=== PATIENT | female | born 1940 | race Caucasian/White ===

== ENCOUNTER → 2019-09-08 08:19 | Outpatient (CLI) | payer MEDICARE, SELFPAY ==
[2019-09-08 13:46] LABS: Basophils % 0.4 % (0.1-2.0); Eosinophils # 1.1 K/mm3 (0.0-0.4); Eosinophils % 12.6 % (0.1-12.0); Hematocrit 40.2 % (37.0-47.0); Hemoglobin 12.8 g/dL (12.2-16.2); Lymphocytes # 2.5 K/mm3 (0.7-4.5); Lymphocytes % 29.9 % (10-50); Mean Corpuscular HGB Conc 31.9 g/dL (31.8-35.4); Mean Corpuscular Volume 93.9 fl (81-99); Mean Platelet Volume 8.8 fl (7.4-10.4); Monocytes # 0.3 K/mm3 (0.1-1.0); Monocytes % 3.3 % (1.7-9.3); Neutrophils # 4.5 K/mm3 (1.8-7.8); Neutrophils % 53.8 % (37.0-80.0); Platelet Count 267 K/mm3 (142-424); Red Blood Count 4.28 M/mm3 (4.20-5.40); Red Cell Distribution Width 12.8 % (11.5-17.5); White Blood Count 8.3 K/mm3 (4.8-10.8)
[2019-09-08 13:49] LABS: Alanine Aminotransferase 33 U/L (12-78); Albumin Level 3.5 gm/dL (3.4-5.0); Albumin/Globulin Ratio 0.9 (1.1-1.8); Alkaline Phosphatase 98 U/L (46-116); Anion Gap 14.3 mEq/L (5-15); Aspartate Amino Transferase 32 U/L (15-37); Bilirubin,Total 0.4 mg/dL (0.2-1.0); Blood Urea Nitrogen 12 mg/dL (7-18); Calcium 8.8 mg/dL (8.5-10.1); Carbon Dioxide 25 mmol/L (21.0-32.0); Chloride 103 mmol/L (98-107); Chol/HDL Ratio 3.3 (1-3.5); Cholesterol 137 mg/dL (140-200); Creatinine,Serum 0.73 mg/dL (0.55-1.02); Estimated Glomerular Filt Rate 77 ml/min (>60); GFR (African American) 94 ML/MIN (>60); HDL Cholesterol 42 mg/dL (29-89); LDL Cholesterol 76 mg/dL (0-130); Potassium 4.3 mmoL/L (3.5-5.1); Sodium 138 mmol/L (136-145); Total Protein,Serum 7.5 gm/dL (6.4-8.2); Triglycerides 97 mg/dL (30-200); VLDL Cholesterol 19 mg/dL (0-40)
[2019-09-08 14:11] LABS: Glucose 90 mg/dL (74-106)
[2019-09-09 12:35] LABS: Vitamin B12 1000 pg/mL (232-1245)
== END ==
PROVIDERS: Visit Provider Nurse Practitioner Family
DX: Z00.00 Encounter for general adult medical examination without abnormal findings (principal); E53.8 Deficiency of other specified B group vitamins; I10 Essential (primary) hypertension
CPT/HCPCS: 36415; 80053; 80061; 82607; 85025

== ENCOUNTER → 2019-09-23 08:48 | Outpatient (CLI) | payer MEDICARE, SELFPAY ==
--- NOTE | 2019-09-23 09:30 | MM_ITS ---
PROCEDURE: MM DIG SCREENING MAMM BI W/CAD CLINICAL INDICATION: SCREENING There is no personal or family history of breast cancer. COMPARISON: No exams were available for comparison TECHNIQUE: Standard CC and MLO images and 3D Tomosynthesis was obtained. R2 CAD reviewed. FINDINGS: Moderate fibroglandular densities are seen in the subareolar regions of both breasts. There are few scattered benign-appearing microcalcifications in each breast. Juancarlos images were reviewed. There is no suspicious lesion and no suspicious microcalcifications. IMPRESSION: Fibrofatty parenchyma with no suspicious lesions seen BI-RAD Category: 2 Benign Finding(s) FOLLOW-UP: 1YR 1 Year Follow-up (A letter has been sent to the patient regarding results of the study.) Dictated by: Dr. Keshawn Perez MD 09/26/2019 17:[address] Keshawn Perez MD in [place] 09/26/2019 17:45
== END ==
PROVIDERS: PCP Internal Medicine Adolescent Medicine; Visit Provider Nurse Practitioner Family
DX: Z12.31 Encounter for screening mammogram for malignant neoplasm of breast (principal)
CPT/HCPCS: 77063; 77067

== ENCOUNTER → 2020-05-19 10:10 | Outpatient (CLI) | payer MEDICARE, SELFPAY ==
[2020-05-19 13:59] LABS: Chloride 93 mmol/L (98-107)
[2020-05-19 14:00] LABS: Potassium 4.4 mmoL/L (3.5-5.1); Sodium 129 mmol/L (136-145)
[2020-05-19 14:03] LABS: Anion Gap 12.4 mEq/L (5-15); Blood Urea Nitrogen 12 mg/dl (7-17); Calcium 9.3 mg/dl (8.4-10.2); Carbon Dioxide 28 mmol/L (22.0-30.0); Estimated Glomerular Filt Rate 97 ml/min (>60); GFR (African American) 117 ML/MIN (>60); Glucose 94 mg/dl (74-100)
== END ==
PROVIDERS: Visit Provider Nurse Practitioner Family
DX: E87.1 Hypo-osmolality and hyponatremia (principal)
CPT/HCPCS: 36415; 80048

== ENCOUNTER → 2020-06-26 14:38 | Outpatient (CLI) | payer MEDICARE, SELFPAY ==
[2020-06-26 17:07] LABS: Anion Gap 13.4 mEq/L (5-15); Blood Urea Nitrogen 14 mg/dl (7-17); Calcium 9.3 mg/dl (8.4-10.2); Carbon Dioxide 27 mmol/L (22.0-30.0); Chloride 96 mmol/L (98-107); Estimated Glomerular Filt Rate 81 ml/min (>60); GFR (African American) 98 ML/MIN (>60); Glucose 91 mg/dl (74-100); Potassium 4.4 mmoL/L (3.5-5.1); Sodium 132 mmol/L (136-145)
== END ==
PROVIDERS: Visit Provider Nurse Practitioner Family
DX: I10 Essential (primary) hypertension (principal); E87.1 Hypo-osmolality and hyponatremia
CPT/HCPCS: 36415; 80048

== ENCOUNTER → 2021-01-05 13:35 | Outpatient (CLI) | payer MEDICARE, SELFPAY | PROVIDERS: Visit Provider Nurse Practitioner Family | DX: R30.0 Dysuria (principal) | CPT/HCPCS: 87086; 87088; 87186 ==

== ENCOUNTER → 2021-01-29 10:30 | Outpatient (CLI) | payer MEDICARE, SELFPAY ==
--- NOTE | 2021-01-29 10:32 | MM_ITS ---
PROCEDURE: MM DIG SCREENING MAMM BI W/CAD Digital Breast Tomosynthesis Included CLINICAL INDICATION: SCREENING COMPARISON: MG MAMMO BI LAT SCREENING from 08/01/2014 MG MAMMO BI LAT SCREENING from 08/15/2015 MG GRACIE BILAT SCREENING from 08/16/2016 MG GRACIE BILAT SCREENING from 08/16/2016 MG GRACIE BILAT SCREENING from 08/21/2017 MG GRACIE BILAT SCREENING from 08/21/2017 MG MM DIG SCREENING MAMM BI W/CAD from 09/23/2019 TECHNIQUE: Standard CC and MLO images and 3D Tomosynthesis was obtained. R2 CAD reviewed. FINDINGS: Breast parenchyma is heterogeneously dense which may lower the sensitivity of mammography. No new dominant mass or indirect evidence of malignancy. No suspicious type microcalcifications. IMPRESSION: Normal bilateral digital screening mammograms. BI-RAD Category: 1 Negative FOLLOW-UP: 1 YR 1 Year Follow-up (A letter has been sent to the patient regarding results of the study.) Dictated by: Robinson Rangel MD 01/31/2021 07:53 Robinson Rangel MD in [place] 01/31/2021 07:53
== END ==
PROVIDERS: PCP Internal Medicine Adolescent Medicine; Visit Provider Nurse Practitioner Family
DX: Z12.31 Encounter for screening mammogram for malignant neoplasm of breast (principal)
CPT/HCPCS: 77063; 77067

== ENCOUNTER → 2021-03-26 12:27 | Outpatient (CLI) | payer MEDICARE, SELFPAY ==
--- NOTE | 2021-03-26 12:31 | FL_ITS ---
PROCEDURE: FL BARIUM SWALLOW MODIFIED CLINICAL INDICATION: PHARYNGEAL DYSPHAGIA COMPARISON: No exams were available for comparison TECHNIQUE: Patient administered varying consistencies of barium contrast, while viewed in lateral position under real-time fluoroscopy with cine recording. FLUOROSCOPY TIME: The study was performed in conjunction with speech pathologist. Please see that report & recommendations. FINDINGS: Patient was given varying consistencies of barium. Normal oral phase. There was a mild amount residual within the vallecula and piriform sinus but no evidence of aspiration or penetration. There was some difficulty with bolus formation with mechanical soft.. IMPRESSION: No aspiration or penetration. Mild amount of residual within the vallecula and poor from sinuses with all consistencies Please see speech pathologist report and recommendations. Dictated by: Jian Edwards MD 03/29/2021 12:22 Jian Edwards MD in [place] 03/29/2021 12:22
--- NOTE | 2021-03-26 14:13 | HMH.SLMBS2 ---
Speech & Language Evaluation Speech/Language Mod Barium Swallow Start: 03/26/21 13:34 Freq: once Status: Complete Protocol: Document 03/26/21 13:34 BALDEV (Rec: 03/26/21 14:12 BALDEV [id number]) General Information General Current Food Consistancy Regular,Thin Liquids Dentition Upper Only Comment: Edentulous on lower Oxygen Status Room Air Facial Symmetry Symmetrical Patient Orientation Person,Place,Time,Situation Ability to Follow Directions Excellent Communication Ability No Impairment MBS Recommendations Diet Dietary Recommendations Mechanical Soft,Chopped Meats, Thin Liquids Treatment/Strategies Treatment Recommendation Base of Tongue Exercises Strategy/Precaution Recommend Sitting Upright (90 deg),Chin Tuck,Double Swallow, Supersupraglottic Swallow, Small Bites and Sips,Alternate Liquids/Solids Mod Barium Swallow Impressions Summary and Impressions Oral Phase Impression No Impairment (WFL) Oral Phase Summary Ms. Ross was given the following consistencies: thins via straw and open cup, puddingg, pureed, and mechanical soft. Regular consistency was not attempted due to lack of bottom teeth. No oral phase impairments were noted during the evaluation. Pharyngeal Phase Impression Moderate Impairment Pharyngeal Phase Summary Ms. Ross exhibited residue on base of tongue and pharyngeal wall. She also exhibited penetration into laryngeal vestibule with thin liquids via straw and open cup . Chin tuck improved swallow. Speech/Language MBS Assessment/Goals/Plan Assessment Date of Evaluation: 03/26/21 Evaluation Type Initial Certification Assessment/Problems Dysphagia Does Patient Qualify for Service Yes Qualify/Failure Comment Patient would benefit from speech therapy via home health or outpatient services. Patient requested home health but would agree to outpatient therapy. Plan Pt/Guardian verbally ack understanding Yes of dx/prognosis/goals G -code Required No Mod Barium Swallow Setup Exam Setup
== END ==
PROVIDERS: PCP Internal Medicine Adolescent Medicine; Visit Provider Internal Medicine Adolescent Medicine
DX: R13.13 Dysphagia, pharyngeal phase (principal)
CPT/HCPCS: 70371; 92611

== ENCOUNTER 2021-05-01 11:00 | Outpatient (RCR) | payer MEDICARE, SELFPAY ==
--- NOTE | 2021-04-24 11:56 | HMH.SLDYSPHA ---
Speech & Language Evaluation Speech/Language Dysphagia Evaluation Start: 04/24/21 11:48 Freq: ONCE Status: Active Protocol: Document 04/24/21 11:48 BALDEV (Rec: 04/24/21 11:56 BALDEV [id number]) Dysphagia Assess/Goals/Plan Assessment Date of Evaluation: 04/24/21 Evaluation Type Initial Certification Assessment/Problems Dysphagia Does Patient Qualify for Service Yes Qualify/Failure Comment Ms. Ross did exhibit signs and symptoms of dysphagia during a Modified Barium Swallow Study conducted on 03/26. Recommendations PHYSICIAN CERTIFICATION: The specified therapy services are required, authorized, and reviewed every 30 days. Pt will be seen # times/week 1 for # weeks 4 Diet Recommendations Mechanical Soft Liquid Type Recommendations Normal/Thin SL Swallow Guidelines Alt bite w/sip thru meal, Standard Aspiration Prec. Crush Meds Small pills w/applesauce,Small OK/Crush large pill,Crush lge pills w/applesa Dysphagia Swallow Precautions/Strategies Sitting Upright (90 deg),Chin Tuck,Double Swallow,Small Bites and Sips,Alternate Liquids/Solids Plan Anticipate reaching STG in # weeks 2 Anticipate reaching LTG in # weeks 4 Pt/Guardian verbally ack understanding Yes of dx/prognosis/goals G -code Required No STG-Asp Before/Delayed Resp Use chin-down position w/wo cues #trials 10 STG-Asp During/Laryngeal Closure Use chin-down position w/wo cues #trials 10 Use Valsalva maneuver w/wo cues in # 10 trials STG-Asp Aft/Laryn.Vest.-Elevation Produce i/in continuous fashion, incl. 30 fasetto in # trials Case Operator Goals Diet Mechanical soft with Liquids Thin Liquids General Information General Current Food Consistancy Mechanical Soft,Thin Liquids Dentition Upper Only Oxygen Status Room Air Facial Symmetry Symmetrical Patient Orientation Person,Place,Time,Situation Ability to Follow Directions Excellent Communication Ability No Impairment Dysphagia:Food Presentation Evaluation Food Type Pureed,Mechanical Soft,Liquid, Pudding Dysphagia Evaluation Summary Ms. Ross received a MBSS on 03/26/2021 and results are as follows: Oral Phase of swallowing: Within Functional Limits
== END 2021-05-01 11:05 | disposition home or self-care (01) ==
LOC: ST 11:00
PROVIDERS: PCP Internal Medicine Adolescent Medicine; Visit Provider Nurse Practitioner Family
DX: R13.19 Other dysphagia (principal)
CPT/HCPCS: 92526; 92610

== ENCOUNTER 2021-05-04 17:09 | Emergency (ER) | payer MEDICARE, SELFPAY ==
[2021-05-04 17:41] VITALS: BP 152/72; PULSE 68; RESP 16; TEMP 36.7; O2SAT 98; BMI 23.1
--- NOTE | 2021-05-04 18:06 | XR_ITS ---
PROCEDURE INFORMATION: Exam: XR Right Elbow Exam date and time: 05/04/21 06:06 PM Age: 80 years old Clinical indication: Injury or trauma; Fall; Blunt trauma (contusions or hematomas); Elbow; Right; Injury date: 05/04/2021; Injury details: Fell; Additional info: Fall abrasion RT elbow TECHNIQUE: Imaging protocol: XR Right elbow. Views: 3 or more views. COMPARISON: No relevant prior studies available. FINDINGS: Bones/joints: Normal. Soft tissues: Normal. IMPRESSION: No acute findings.
--- NOTE | 2021-05-04 18:06 | XR_ITS ---
PROCEDURE INFORMATION: Exam: XR Right Forearm Exam date and time: 05/04/21 06:06 PM Age: 80 years old Clinical indication: Injury or trauma; Fall; Blunt trauma (contusions or hematomas); Arm, lower; Right; Injury date: 05/04/2021; Patient HX: Fell abrasion RT elbow pain in RT wrist TECHNIQUE: Imaging protocol: XR Right forearm. Views: 2 views. COMPARISON: CR XR ELBOW RT MIN 3V 05/04/21 06:12 PM FINDINGS: Bones/joints: Normal. Soft tissues: Normal. IMPRESSION: No acute findings.
--- NOTE | 2021-05-04 18:06 | XR_ITS ---
PROCEDURE INFORMATION: Exam: XR Facial Bones, Minimum of 3 Views, Complete Exam date and time: 05/04/21 06:06 PM Age: 80 years old Clinical indication: Injury or trauma; Fall; Blunt trauma (contusions or hematomas); Nose and lip/oral cavity; Injury date: 05/04/2021; Patient HX: Fell landed on carpet floor cut upper inside of lip, abrasion on bridge of nose and under RT eye TECHNIQUE: Imaging protocol: XR of the facial bones, minimum of 3 views. Complete exam. COMPARISON: NECKW CT SOFT TISSUE NECK W/CONTRAST 04/04/17 08:06 AM FINDINGS: Sinuses: Well aerated. No opacification. Bones/joints: No fracture. Soft tissues: Unremarkable. IMPRESSION: Unremarkable.
--- NOTE | 2021-05-04 18:06 | XR_ITS ---
PROCEDURE INFORMATION: Exam: XR Right Knee Exam date and time: 05/04/21 06:06 PM Age: 80 years old Clinical indication: Injury or trauma; Fall; Blunt trauma; Knee; Right; Injury date: 05/04/2021; Injury details: Fell; Additional info: Fall pain RT knee TECHNIQUE: Imaging protocol: XR Right knee. Views: 3 views. COMPARISON: No relevant prior studies available. FINDINGS: Bones/joints: Mild degenerative changes. Soft tissues: Small suprapatellar effusion. IMPRESSION: Small suprapatellar effusion.
--- NOTE | 2021-05-04 18:08 | PC.NURSE ---
Notified RAD of xrays
--- NOTE | 2021-05-04 18:20 | HMH.EDUTC ---
[facility] [place] Disposition Clinical Impression: Right forearm pain, Right elbow pain, Need for Tdap vaccination Fall Qualifiers: Encounter type: initial encounter Qualified Code(s): W19.XXXA - Unspecified fall, initial encounter Lip laceration Qualifiers: Encounter type: initial encounter Qualified Code(s): S01.511A - Laceration without foreign body of lip, initial encounter Contusion of right knee Qualifiers: Encounter type: initial encounter Qualified Code(s): S80.01XA - Contusion of right knee, initial encounter Avulsion of skin of right forearm Qualifiers: Encounter type: initial encounter Qualified Code(s): S51.801A - Unspecified open wound of right forearm, initial encounter Disposition: Home, Self-Care Condition on Discharge: Good Instructions: DI for Knee Pain, DI for Avulsion Laceration (Not Requiring Sutures), How to Care for Absorbable Sutures Additional Instructions: Follow up with your primary care physician. The sutures in the inside of your upper lip are absorbable. They will absorb and do not need removed. Take the antibiotics (keflex-cephalexin) as directed. Apply the topical antibiotic ointment to your abrasions and skin tear as directed. I put in a referral to the orthopedic doctor for your multiple orthopedic injuries. You should call his office on Friday morning to get an appointment with him to let him reevaluate your injuries. You definitely need to follow up if you knee,forearm, wrist, elbow are not starting to feel better within 48 to 72 hours. HIs office number will be on this chart. If you have a different orthopedic doctor that you see then you could follow up with that person just as well, but make sure they will be able to review your x-rays. You would usually need to get copies of them from medical records and take them with you. Dr. Sunshine will be able to look in the computer here and see them without needing a disk. GO TO THE ER FOR ANY WORSENING SYMPTOMS OR CONCERNS EAT A SOFT DIET FOR THE NEXT FEW DAYS TO ALLOW YOU LIP TO HEAL WITHOUT CAUSING IT TO HURT MORE THAN IT HAS TO. Prescriptions: Mupirocin [Bactroban 2% Ointment 22gm tube] 1 applicatio TP TID 7 Days #1 gm Transmission Status: Received by [facility] cephALEXin [cephALEXin 500mg capsule] 500 mg PO Q6H 10 Days #40 cap Transmission Status: Received by [facility] Referrals: Ziggy Cunha MD [Primary Care Provider] - Yg Sunshine MD [Staff Physician] - Time of Disposition: 20:09 Medical Decision Making - Medical Records Medical records reviewed: No: I reviewed the patient's medical records. - Pradip Inquiry Pt receiving controlled substance: No Vital Signs: 05/04/21 17:41 05/04/21 20:29 Temperature 98.0 F 98.0 F Temperature Source Oral Pulse Rate 68 Pulse Rate [Left Radial] 68 Respiratory Rate 16 16 Blood Pressure 152/72 H Blood Pressure [Left Arm] 152/72 H Blood Pressure Mean [Left Arm] 98 Blood Pressure Source [Left Arm] Automatic Cuff Blood Pressure Position [Left Arm] Sitting 02 Sat by Pulse Oximetry 98 Oxygen Delivery Method Room Air Orders (Tests/Meds): ED MEDICATIONS Discontinued Medications Generic Name Dose Route Start Last Admin Trade Name Freq PRN Reason Stop Dose Admin Tetanus/Reduced Diphtheria/Acell Pertussis 0.5 ml 05/04/21 18:37 05/04/21 20:28 Tet/Diphth/Pert-Adult 0.5ml Syringe IM 05/04/21 18:38 0.5 ml .ONCE ONE Administration [facility] [place] HPI - General Stated complaint: AO09/17@1700 Fall inj R wrist,r knee lac on lip Time Seen by Provider: 05/04/21 18:20 Mode of Arrival: Wheelchair Source of Information: Patient Limitations: No Limitations Description of Symptoms (Recalled from Triage Doc. by RN): Tripped at home, fell on kitchen floor, resulting in a lac to her upper lip, skin tear to rt forearm by the elbow, abrasion below rt eye, and swelling to rt knee HEENT Symptoms (Recalled from RN notes): No Resp Symptoms (Rec
--- NOTE | 2021-05-04 18:41 | PC.NURSE ---
Pt returned from RAD
[2021-05-04 20:29] VITALS: BP 152/72; PULSE 68; RESP 16; TEMP 36.7; O2SAT 98
== END 2021-05-04 20:30 | disposition home or self-care (01) ==
PROVIDERS: Emergency Provider Nurse Practitioner Family; PCP Internal Medicine Adolescent Medicine
DX: S01.511A Laceration without foreign body of lip, initial encounter (principal); S80.01XA Contusion of right knee, initial encounter; S51.801A Unspecified open wound of right forearm, initial encounter; Z23 Encounter for immunization; W18.00XA Striking against unspecified object with subsequent fall, initial encounter; Y92.010 Kitchen of single-family (private) house as the place of occurrence of the external cause; Z88.0 Allergy status to penicillin; Z88.8 Allergy status to other drugs, medicaments and biological substances
CPT/HCPCS: 12011; G0463; 70150; 73080; 73090; 73562; 90471; 90715; 99202

== ENCOUNTER → 2021-05-09 11:16 | Outpatient (CLI) | payer MEDICARE, SELFPAY | PROVIDERS: Visit Provider Internal Medicine Gastroenterology | DX: Z20.822 Contact with and (suspected) exposure to COVID-19 (principal); Z13.810 Encounter for screening for upper gastrointestinal disorder | CPT/HCPCS: C9803; U0003; U0005 ==

== ENCOUNTER 2021-05-11 09:09 | Day surgery (SDC) | payer MEDICARE, SELFPAY ==
[2021-05-08 14:00] VITALS: BMI 23.1
[2021-05-11] VITALS (7 sets, daily range): BP systolic 120–148; BP diastolic 60–98; PULSE 59–72; RESP 18; TEMP 36.1–36.7; O2SAT 97–100
--- NOTE | 2021-05-11 11:18 | HMH.ANESCL ---
[facility] Anesthesia Checklist - Patient Identification Patient Identification: Arm Band - Structural Data Admitted From: Home Planned Operative Procedure/s: EGD Consent for Planned Operative Procedure(s) Verified: Yes - NPO Status Verified Time NPO: 00:00 - Airway Assessment C-Spine Mobility Assessed: Yes TMJ Mobility Assessed: Yes Dentition: Good Dentition - Neurological Assessment Level of Consciousness: Awake Hx Seizures: No Numbness or tingling in extremities: No - Anesthesia Plan Anesthesia Risk discussed: Yes Anesthesia Plan: Verified Anesthesia Type: MAC [facility] History I have reviewed the patient's past medical history: Yes Medical History: Denies:: Cancer, Diabetes Mellitus Type 1, Diabetes Mellitus Type 2, Internal Pacemaker, MRSA, Seizures *Have you ever received a pneumonia vaccine?: Yes *Have you received a flu vaccine this season?: Yes Anesthesia experience/problems:: None Laterality Cases: Bilateral: Tonsillectomy Other Surgeries: No: Pacemaker Amputation: No Fractures: No - *Social History Last grade of school completed: 11th or 12th Smoking Status: Never smoker Alcohol Intake: never Substance Use Type: denies use *Occupational Status:: retired Housing: house *Travel in the last 8 weeks: None Family Hx:: Cancer, Diabetes
--- NOTE | 2021-05-11 11:43 | P.PCN_ITS ---
[facility] Procedure Note Procedure Note:: Upper Endoscopy Procedure Report: Esophagogastroduodenoscopy with cold biopsies and TTS balloon dilation Endoscopost: Theo Orr II, MD Referring Physician: Claudia ANSARI Date of Procedure: May 11, 2021 Equipment: Olympus GIF 190 standard upper endoscope Sedation: MAC sedation Indications: Mrs. Ross is a 80-year-old female with dysphagia for years. This has worsened. She reports globus sensation with some mucus accumulation in the throat and thickness feeling. She reports no hoarseness. She has undergone speech therapy with swallowing exercises. The patient reports no heartburn or reflux. She reports no belching. She does have occasional hiccups. She reports of dysphagia at the retrohyoid region in her throat. She did have an upper endoscopy in [place] in 2009 after a colon resection. She does have chronic constipation for which she takes Metamucil. She reports no epigastric discomfort but does have some bloating. Procedure: Prior to the procedure, a history and physical exam was performed, and patient's medications and allergies were reviewed. The risks, benefits and alternatives of the sedation and procedure were discussed with the patient. All questions were answered and informed consent was obtained. The patient was brought to the procedure room. Patient identification and proposed procedure were verified by the physician and the nurse. The patient was placed in a left lateral decubitus position and the scope was passed under direct vision. Throughout the procedure, the patient's blood pressure, pulse, and oxygen saturations were monitored continuously. The upper GI endoscopy was accomplished without difficulty. The patient tolerated the procedure well. Findings: The scope was passed directly into the upper esophagus and advanced to the third portion of the duodenum. The post bulbar duodenum and duodenal bulb were normal with normal mucosa and conniventes. The scope was withdrawn through a normal duodenal bulb and pylorus into the stomach. There was some linear reactive gastropathy of the antrum. Biopsies were obtained. There was moderate chronic atrophic gastritis of the body and fundus of the stomach with thinning of the mucosal lining and very visible vascular pattern. NBI did show evidence of gastric intestinal metaplasia associated with a chronic atrophic gastritis. Cold biopsies were taken separately from the fundus of the stomach. Upon retroflexion there was no hiatal hernia. The scope was then withdrawn into the esophagus. There was no evidence of reflux esophagitis or Suarez's. There was no Schatzki's ring. There were strong tertiary contractions and evidence of moderate esophageal dysmotility. The entire esophagus was dilated to 60 Slovenian/20 mm with a TTS hydrostatic balloon. There was some resistance at the cricopharyngeus. The remainder of the esophageal mucosa was normal. 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 Nonerosive GERD with moderate esophageal dysmotility 3. Chronic atrophic gastritis Plan: The patient's swallowing difficulty/globus sensation is related to cricopharyngeal spasm and esophageal dysmotility/esophageal motility disorder. I do feel that this may be caused by gas pressure gradients. We will discuss treatment options. I do feel certain the patient has chronic atrophic gastritis and probable associated B12 deficiency and possible iron deficiency. This can be secondary to H. pylori but many times it is autoimmune in origin. I will obtain B12, iron studies and antiparietal cell antibody (to rule out autoimmune atrophic gastritis). I will also check routine CBC.
[2021-05-11 12:57] LABS: Basophils % 0.3 % (0.1-2.0); Eosinophils # 0.6 K/mm3 (0.0-0.4); Eosinophils % 6.3 % (0.1-12.0); Hematocrit 39.9 % (37.0-47.0); Hemoglobin 12.7 g/dL (12.2-16.2); Lymphocytes % 20.7 % (10-50); Mean Corpuscular HGB Conc 31.8 g/dL (31.8-35.4); Mean Corpuscular Hemoglobin 30.3 pg (27.0-31.2); Mean Corpuscular Volume 95.3 fl (81-99); Mean Platelet Volume 7.2 fl (7.4-10.4); Monocytes # 0.4 K/mm3 (0.1-1.0); Monocytes % 4.6 % (1.7-9.3); Neutrophils # 6.6 K/mm3 (1.8-7.8); Platelet Count 321 K/mm3 (142-424); Red Blood Count 4.19 M/mm3 (4.20-5.40); White Blood Count 9.7 K/mm3 (4.8-10.8)
[2021-05-11 13:03] LABS: Chloride 99 mmol/L (98-107); Potassium 4.5 mmoL/L (3.5-5.1); Sodium 134 mmol/L (136-145)
[2021-05-11 13:06] LABS: Alanine Aminotransferase 24 U/L (12-78); Albumin Level 3.9 g/dl (3.5-5.0); Albumin/Globulin Ratio 1.1 (1.1-1.8); Alkaline Phosphatase 92 U/L (38-126); Anion Gap 10.5 mEq/L (5-15); Aspartate Amino Transferase 41 U/L (14-36); Bilirubin,Total 0.2 mg/dl (0.2-1.3); Blood Urea Nitrogen 13 mg/dl (7-17); Carbon Dioxide 29 mmol/L (22.0-30.0); Creatinine Clearance Estimated 50 mL/min (50-200); Estimated Glomerular Filt Rate 97 ml/min (>60); GFR (African American) 117 ML/MIN (>60); Globulin 3.7 g/dL (1.3-3.2); Glucose 92 mg/dl (74-100); Iron 48 ug/dL (37-170); Total Protein,Serum 7.6 g/dl (6.3-8.2)
[2021-05-11 13:16] LABS: Total Iron Binding Capacity 311 ug/dL (265-497)
[2021-05-11 13:44] LABS: Ferritin 49.6 ng/ml (11.1-264)
[2021-05-11 14:27] LABS: Vitamin B12 772 pg/mL (239-931)
[2021-05-12 16:27] LABS: Antiparietal Cell Antibody 11.8 Units (0.0-20.0)
== END 2021-05-11 12:48 | disposition home or self-care (01) ==
LOC: OUTP 09:11
PROVIDERS: PCP Internal Medicine Adolescent Medicine; Visit Provider Internal Medicine Gastroenterology
PROC: 0DJ08ZZ Inspection of Upper Intestinal Tract, Via Natural or Artificial Opening Endoscopic (ICD-10-PCS; CPT 43235; principal; 2021-05-11 10:30)
DX: J39.2 Other diseases of pharynx (principal); K21.9 Gastro-esophageal reflux disease without esophagitis; K22.4 Dyskinesia of esophagus; K29.40 Chronic atrophic gastritis without bleeding; Z80.9 Family history of malignant neoplasm, unspecified; Z83.3 Family history of diabetes mellitus; Z88.6 Allergy status to analgesic agent; Z88.1 Allergy status to other antibiotic agents; Z88.2 Allergy status to sulfonamides; Z88.8 Allergy status to other drugs, medicaments and biological substances; Z79.899 Other long term (current) drug therapy
CPT/HCPCS: 43239; 43249; 36415; 80053; 82607; 82728; 83516; 83540; 83550; 85025; 88305; 88342; C1726

== ENCOUNTER → 2021-05-22 08:00 | Outpatient (CLI) | payer MEDICARE, SELFPAY | PROVIDERS: Visit Provider Internal Medicine Adolescent Medicine | DX: R30.0 Dysuria (principal); B96.5 Pseudomonas (aeruginosa) (mallei) (pseudomallei) as the cause of diseases classified elsewhere | CPT/HCPCS: 87086; 87088; 87186 ==

== ENCOUNTER → 2021-06-04 17:48 | Outpatient (CLI) | payer MEDICARE, SELFPAY | PROVIDERS: Visit Provider Internal Medicine Adolescent Medicine | DX: N30.00 Acute cystitis without hematuria (principal); B96.5 Pseudomonas (aeruginosa) (mallei) (pseudomallei) as the cause of diseases classified elsewhere | CPT/HCPCS: 87086; 87088; 87186 ==

== ENCOUNTER 2021-06-28 10:00 | Outpatient (RCR) | payer MEDICARE, SELFPAY ==
--- NOTE | 2021-05-15 12:15 | HMH.PTOPEV ---
PT Outpatient Evaluation Rehab PT Outpatient Evaluation Start: 05/15/21 09:43 Freq: Status: Active Protocol: Document 05/15/21 09:43 IVONE (Rec: 05/15/21 11:21 [email or web address] [id number]) Electronically Signed By Zhen Saeed, PT 05/15/21 09:43 Outpatient Therapy Subjective History Subjective History Pt. is a 80 year old female who presents to [facility] w/ c/o acute and constant RLE knee/ RUE wrist P!, muscle weakness, and imbalance w/ gait of traumatic onset since 05/04/21 . Pt. reports having a fall on 05/04/21 secondary to my left foot dragging the ground. Pt. denies having dizziness, vertigo, drop attack, nor syncope related to recent fall . Recent diagnostic imaging( radiographs of RUE wrist/ forearm/elbow/face and RLE knee) were negative for a fx. per pt. report. Pt. reports decreased muscle strength over the past 2 years secondary to staying home and providing care to her dependent and recently . Pt. reports walking around the cemetary prior to those 2 years, but states she just can 't anymore d/t decreased strength. Pt. also reports donning a SPC w/ ambulating at this time post recent fall, reports participating in ADLs w/o AD prior to recent fall. Current medications include Centrum Silver, Aspirin, Enalapril, Metoprolol, Diazepam, Amlodipine, Vitamin C, Vitamin B-12, Zyrtec, and Keflex. PMH includes a Cholecystectomy, Colon Resection, Hypertension, OA, and Pharyngeal Dysphagia. Chief Complaint Pain,Swelling,Gives out/ Unstable,Weakness,Decreased Coordination Symptom Type Ache,Dull,Other Symptoms Relieved By
== END 2021-07-17 16:00 | disposition home or self-care (01) ==
LOC: PT.CARL 10:00
PROVIDERS: PCP Internal Medicine Adolescent Medicine; Visit Provider Internal Medicine Adolescent Medicine
DX: R26.89 Other abnormalities of gait and mobility (principal)
CPT/HCPCS: 97110; 97112; 97163; 97164; 97530

== ENCOUNTER 2021-07-04 10:23 | Observation (INO) | payer MEDICARE, SELFPAY ==
[2021-07-04] VITALS (16 sets, daily range): BP systolic 94–136; BP diastolic 44–73; PULSE 65–76; RESP 16–18; TEMP 36.7–36.9; O2SAT 95–100; BMI 22.8; BMI 23.3
--- NOTE | 2021-07-04 10:28 | XR_ITS ---
PROCEDURE: XR HUMERUS LT XR shoulder left CLINICAL INDICATION: pain from fall COMPARISON: CR XR SHOULDER LT MIN 2V from 07/04/2021 FINDINGS: Left shoulder: Transverse fractures present involving the humeral neck. There is 1.8 cm medial displacement of the distal fracture fragment. Left humerus: The humeral head is located. The mid distal aspect of the humerus has an unremarkable appearance. Other findings:None. IMPRESSION: Displaced left humeral neck fracture Dictated by: Jian Edwards MD 07/04/2021 13:28 Jian Edwards MD in [place] 07/04/2021 13:28
[2021-07-04 10:50] LABS: Basophils % 0.5 % (0.1-2.0); Eosinophils # 0.5 K/mm3 (0.0-0.4); Eosinophils % 6.9 % (0.1-12.0); Hematocrit 36.7 % (37.0-47.0); Hemoglobin 11.9 g/dL (12.2-16.2); Lymphocytes % 27.3 % (10-50); Mean Corpuscular HGB Conc 32.5 g/dL (31.8-35.4); Mean Corpuscular Hemoglobin 30.1 pg (27.0-31.2); Mean Corpuscular Volume 92.5 fl (81-99); Mean Platelet Volume 8.3 fl (7.4-10.4); Monocytes # 0.3 K/mm3 (0.1-1.0); Monocytes % 4.5 % (1.7-9.3); Neutrophils # 4.4 K/mm3 (1.8-7.8); Neutrophils % 60.8 % (37.0-80.0); Platelet Count 293 K/mm3 (142-424); Red Blood Count 3.97 M/mm3 (4.20-5.40); Red Cell Distribution Width 13.4 % (11.5-17.5); White Blood Count 7.2 K/mm3 (4.8-10.8)
--- NOTE | 2021-07-04 10:55 | XR_ITS ---
PROCEDURE: XR ELBOW LT 2V CLINICAL INDICATION: pain COMPARISON: CR XR ELBOW RT MIN 3V from 05/04/2021 FINDINGS: No fracture or dislocation. No lytic or blastic change. There is normal mineralization. The joint spaces are well-preserved. No significant degenerative/arthritic changes. No erosive changes evident. Other findings:None. IMPRESSION: No acute findings. Dictated by: Jian Edwards MD 07/04/2021 12:41 Jian Edwards MD in [place] 07/04/2021 12:41
--- NOTE | 2021-07-04 10:55 | XR_ITS ---
PROCEDURE: XR FOREARM LT 2V CLINICAL INDICATION: pain COMPARISON: CR XR FOREARM RT 2V from 05/04/2021 FINDINGS: No fracture or dislocation. No lytic or blastic change. There is normal mineralization. The joint spaces are well-preserved. No significant degenerative/arthritic changes. No erosive changes evident. Other findings:None. IMPRESSION: No acute findings. Dictated by: Jian Edwards MD 07/04/2021 12:41 Jian Edwards MD in [place] 07/04/2021 12:41
[2021-07-04 11:03] LABS: Alanine Aminotransferase 27 U/L (12-78); Albumin Level 3.7 g/dl (3.5-5.0); Alkaline Phosphatase 87 U/L (38-126); Anion Gap 9.2 mEq/L (5-15); Aspartate Amino Transferase 46 U/L (14-36); Bilirubin,Total 0.2 mg/dl (0.2-1.3); Blood Urea Nitrogen 10 mg/dl (7-17); Calcium 8.7 mg/dl (8.4-10.2); Carbon Dioxide 28 mmol/L (22.0-30.0); Chloride 98 mmol/L (98-107); Creatinine Clearance Estimated 50 mL/min (50-200); Estimated Glomerular Filt Rate 97 ml/min (>60); GFR (African American) 117 ML/MIN (>60); Globulin 3.6 g/dL (1.3-3.2); Glucose 99 mg/dl (74-100); Potassium 4.2 mmoL/L (3.5-5.1); Sodium 131 mmol/L (136-145); Total Protein,Serum 7.3 g/dl (6.3-8.2)
--- NOTE | 2021-07-04 11:23 | PC.NURSE ---
Spoke with eleno in RAD for xrays
--- NOTE | 2021-07-04 11:23 | HMH.EDGENADL ---
ED Disposition Clinical Impression: Comminuted left humeral fracture Disposition: Admitted As Inpatient Condition on Discharge: Fair Referrals: Ziggy Cunha MD [Primary Care Provider] - - Critical Care Critical Care Time: No Attestation: On 07/04/21, the high probability of a clinically significant, sudden or life threatening deterioration of the following system(s) required my full and direct attention, intervention and personal management. The time I documented below is in addition to time spent performing reported procedures but includes the following listed in this critical care notation. Medical Decision Making - Pradip Inquiry Pt receiving controlled substance: No Vital Signs: 07/04/21 10:35 07/04/21 11:30 Temperature 98.1 F Temperature Source Oral Pulse Rate 67 Pulse Rate [Right Radial] 65 Respiratory Rate 18 Blood Pressure 136/57 L Blood Pressure [Right Arm] 118/73 Blood Pressure Mean 78 Blood Pressure Mean [Right Arm] 88 Blood Pressure Source [Right Arm] Automatic Cuff Blood Pressure Position [Right Arm] Supine 02 Sat by Pulse Oximetry 96 99 Oxygen Delivery Method Room Air - Lab Data Lab Results 07/04/21 10:40: WBC 7.2, RBC 3.97 L, Hgb 11.9 L, Hct 36.7 L, MCV 92.5, MCH 30.1, MCHC 32.5, RDW 13.4, Plt Count 293, MPV 8.3, Neut % (Auto) 60.8, Lymph % (Auto) 27.3, [place] % (Auto) 4.5, Eos % (Auto) 6.9, Baso % (Auto) 0.5, Neut # (Auto) 4.4, Lymph # (Auto) 2.0, [place] # (Auto) 0.3, Eos # (Auto) 0.5 H, Baso # (Auto) 0.0 07/04/21 10:40: Sodium 131 L, Potassium 4.2, Chloride 98, Carbon Dioxide 28, Anion Gap 9.2, BUN 10, Creatinine 0.60, Estimated Creat Clear 50, Estimated GFR 97, Est GFR ( Amer) 117, Glucose 99, Calcium 8.7, Total Bilirubin 0.2, AST 46 H, ALT 27, Alkaline Phosphatase 87, Total Protein 7.3, Albumin 3.7, Globulin 3.6 H, Albumin/Globulin Ratio 1.0 L Result diagrams: 07/04/21 10:40 07/04/21 10:40 Orders (Tests/Meds): ED MEDICATIONS Discontinued Medications Generic Name Dose Route Start Last Admin Trade Name Marcelina PRN Reason Stop Dose Admin Morphine Sulfate 4 mg 07/04/21 11:48 07/04/21 11:51 Morphine 4mg/Ml Syringe IV 07/04/21 11:49 4 mg ONCE ONE Administration Ondansetron HCl 4 mg 07/04/21 11:48 07/04/21 11:51 Ondansetron 4mg/2ml Vial IV 07/04/21 11:49 4 mg ONCE ONE Administration ORDERS Category Date Time Status Ortho Consult [Consult to Orthopedic Surgery] [CONS] Cons 07/04/21 13:21 Ordered Stat Medical Decision Narrative: Patient is a 80-year-old female with past medical history of hypertension presenting to the ED after a fall. Patient is awake, alert, not in acute distress. Patient is hemodynamically stable, afebrile. Physical exam is remarkable for tenderness to palpation of the shoulder down to mid forearm. Otherwise her physical exam is benign. x Rays of the left upper extremity were performed. Basic labs including CBC, CMP, coags are performed. At this point I do not believe the patient requires a CT head given that she has no head trauma, also does not require a CT neck. Patient's history this was likely a mechanical fall. Very of patient's left humerus were performed and remarkable for a humeral neck fracture with displacement. Patient discussed with Dr. Sunshine who wanted a CT of the humerus for surgical planning. Humerus showed a comminuted fracture of the left humerus. Dr. Sunshine wanted the patient admitted to the hospital for operative management tomorrow morning. Patient was admitted to the primary care service for further care and management. General Adult HPI - General Chief complaint: PAIN Stated complaint: left upper arm pain Time Seen by Provider: 07/04/21 11:00 Mode of Arrival: EMS Limitations: No Limitations Description of Symptoms (Recalled from ER Triage Doc. by RN): Pt stated that she had fallen previously back in april. She was walking up a step and misjudged the height and fell and
--- NOTE | 2021-07-04 11:45 | PC.NURSE ---
pt just returned from ct
--- NOTE | 2021-07-04 12:44 | PC.NURSE ---
office staff states Dr. Sunshine is out on lunch they will have him call us
--- NOTE | 2021-07-04 13:11 | PC.NURSE ---
Addendum entered by Nisha Soni RN 07/04/21 13:13: extract operator stated they had to leave him a message Original Note: extract operator paging dr. villegas r/t no return call
--- NOTE | 2021-07-04 13:20 | CT_ITS ---
PROCEDURE: CT HUMERUS LT WO CON CLINICAL HISTORY: L Humeral Neck Fracture COMPARISON: No exams were available for comparison TECHNIQUE: Axial images obtained with sagittal and coronal reformats. All CT scans at the facility use one or more dose reduction, viz: automated exposure control, ma/kV adjustment per patient size (including targeted exams where dose is matched to indication, i.e. head), or iterative reconstruction technique. FINDINGS: Comminuted fracture involves the surgical neck of the humerus. The main fracture fragment occurs along the transverse plane. There is some fragmentation with small bony spicules at the fracture line. Longitudinal component involves the subcortical region of the greater tuberosity without significant displacement. The main distal fracture fragment is displaced anteriorly by 1.1 cm and medially by 1.3 cm. The humeral head is located No lytic or blastic changes apparent. Increased soft tissue density at the fracture site likely related underlying hemorrhage. IMPRESSION: Comminuted and displaced left humeral neck fracture as described above. Dictated by: Jian Edwards MD 07/04/2021 14:18 Jian Edwards MD in [place] 07/04/2021 14:18
--- NOTE | 2021-07-04 14:34 | PC.NURSE ---
waiting account resolution expert back from Dr. Sunshine, office staff states he is not available at this time
--- NOTE | 2021-07-04 15:19 | PC.NURSE ---
TABITHA LI speaking with DR. Sunshine
[2021-07-04 16:20] LABS: Coronavirus 19, PCR Not Detected (NotDetected); Influenza A, PCR Not Detected (NotDetected); Influenza B, PCR Not Detected (NotDetected)
--- NOTE | 2021-07-04 17:36 | PC.NURSE ---
got pt up to restroom, pt did well with minimal assistance getting to restroom. After getting up from the toilet pt states she was lightheaded. Sat pt back down, had another staff member bring a wheelchair. Pt taken back to her room via wheelchair, pt was pale in color, states she felt dizzy and was nauseated. Pt helped back into bed with staff members x2. After pt back in bed, states was feeling better, no longer dizzy or nauseated. Erikaer tray ordered for pt. will continue to monitor
--- NOTE | 2021-07-04 17:41 | PC.NURSE ---
Addendum entered by Nisha Soni RN 07/04/21 17:42: Large bruise noted to pt LUE in bicep area, will continue to monitor Original Note: abrasion noted to L elbow while applying sling. Bandaid placed over area.
--- NOTE | 2021-07-04 17:44 | PC.NURSE ---
per household appliances salesperson, waiting on room to be cleaned and then pt will be able to go assigned room on second floor.
--- NOTE | 2021-07-04 18:06 | PC.NURSE ---
pt sitting up in bed eating supper tray
--- NOTE | 2021-07-04 20:06 | PC.NURSE ---
Pt resting in bed, denies any pain. Call light within reach.
--- NOTE | 2021-07-04 21:39 | PC.NURSE ---
patient up to floor at this time .
[2021-07-05] VITALS (19 sets, daily range): BP systolic 114–157; BP diastolic 50–90; PULSE 66–96; RESP 12–18; TEMP 36.4–43; O2SAT 94–100; BMI 23.3
--- NOTE | 2021-07-05 05:23 | PC.NURSE ---
pt is a&ox4. has rested majority of this shift. remains on room air w/ no c/o soa. placed on NPO diet at midnight. able to ambulate to the bathroom w/ stand by assist. no c/o pain or discomfort voiced. resting in bed at this time. call light within reach.
--- NOTE | 2021-07-05 07:45 | HMH.HP ---
*Admission Date: 07/04/21 *Chief complaint: Fall with humerus fracture *History of present illness: 80-year-old white female who is extremely active, lives by herself, does all of her own self-care activities who was going to sit with a friend who ironically had recently had a hip fracture and she was climbing up her friends steps to her front door when she slipped and reached out to grab herself for balance on the stair rail and kept falling. She was unable to move her arm afterwards, came to the emergency department, found to have a humerus fracture. Admitted to hospital for ORIF today. No chest pain, shortness of air, recent problems with dyspnea, edema or other cardiac or pulmonary symptoms. [facility] History I have reviewed the patient's past medical history: Yes Medical History: Reports:: Hypertension Denies:: Cancer, Diabetes Mellitus Type 1, Diabetes Mellitus Type 2, Internal Pacemaker, MRSA, Seizures *Have you ever received a pneumonia vaccine?: Yes *Have you received a flu vaccine this season?: Yes Laterality Cases: Bilateral: Tonsillectomy Other Surgeries: No: Pacemaker Amputation: No Fractures: No - *Social History Last grade of school completed: 11th or 12th Smoking Status: Never smoker Alcohol Intake: never Substance Use Type: denies use *Occupational Status:: retired Housing: house *Travel in the last 8 weeks: None Family Hx:: Cancer, Diabetes Review of Systems - Review of Systems Review of systems:: pertinent systems reviewed and negative unless documented below Meds Home Medications Medication Instructions Recorded Confirmed Type Enalapril Maleate [Vasotec] 20 mg PO DAILY 03/31/19 07/04/21 History Metoprolol Tartrate [Lopressor 25 mg PO BID 03/31/19 07/04/21 History 25mg tablet] Amlodipine Besylate 5 mg PO HS 07/04/21 07/04/21 History Aspirin [Aspirin 81mg chewable 81 mg PO DAILY 07/04/21 07/04/21 History tab] Buspirone HCl [Buspar 5mg tablet] 2.5 mg PO HS 07/04/21 07/04/21 History Allergies Allergy/AdvReac Type Severity Reaction Status Date / Time ciprofloxacin [From CIPRO] Allergy Unknown Verified 03/31/19 19:02 estrogens, conjugated Allergy Unknown Verified 03/31/19 19:02 [From PREMPRO] ibuprofen [From MOTRIN] Allergy Unknown Verified 03/31/19 19:02 medroxyprogesterone Allergy Unknown Verified 03/31/19 19:02 [From PREMPRO] nebivolol [From BYSTOLIC] Allergy Unknown Verified 03/31/19 19:02 oxybutynin [From DITROPAN] Allergy Unknown Verified 03/31/19 19:02 phenazopyridine Allergy Unknown Verified 03/31/19 19:02 [From PYRIDIUM] Sulfa (Sulfonamide Allergy Unknown Verified 03/31/19 19:02 Antibiotics) [SULFA (SULFONAMIDE ANTIBIOTICS)] tolterodine [From DETROL] Allergy Unknown Verified 03/31/19 19:02 doxycycline Allergy Verified 07/04/21 16:06 Exam Vital signs and Labs for Last 24 Hours: Temp Pulse Resp BP Pulse Ox 98 F 77 16 157/55 H 97 07/05/21 04:00 07/05/21 04:00 07/05/21 04:00 07/05/21 04:00 07/05/21 04:00 Laboratory Results - last 24 hr 07/04/21 10:40: WBC 7.2, RBC 3.97 L, Hgb 11.9 L, Hct 36.7 L, MCV 92.5, MCH 30.1, MCHC 32.5, RDW 13.4, Plt Count 293, MPV 8.3, Neut % (Auto) 60.8, Lymph % (Auto) 27.3, [place] % (Auto) 4.5, Eos % (Auto) 6.9, Baso % (Auto) 0.5, Neut # (Auto) 4.4, Lymph # (Auto) 2.0, [place] # (Auto) 0.3, Eos # (Auto) 0.5 H, Baso # (Auto) 0.0 07/04/21 10:40: Sodium 131 L, Potassium 4.2, Chloride 98, Carbon Dioxide 28, Anion Gap 9.2, BUN 10, Creatinine 0.60, Estimated Creat Clear 50, Estimated GFR 97, Est GFR ( Amer) 117, Glucose 99, Calcium 8.7, Total Bilirubin 0.2, AST 46 H, ALT 27, Alkaline Phosphatase 87, Total Protein 7.3, Albumin 3.7, Globulin 3.6 H, Albumin/Globulin Ratio 1.0 L 07/04/21 15:58: SARS-CoV-2 (PCR) Not detected, Influenza A Untype (PCR) Not detected, Influenza Type B (PCR) Not detected I & O for Last 24 hours: Intake & Output 07/02/21 07/03/21 07/04/21 07/05/21 11:59 11:59 11:59 11:59
--- NOTE | 2021-07-05 07:54 | HMH.PHAINT ---
clarified home medication list using list from Lalit Collado
--- NOTE | 2021-07-05 08:46 | HMH.ORTHOCON ---
*Admission Date: 07/04/21 <Daily Gomez 07/05/21 08:58> *Reason for consult:: Left shoulder fracture <Daily Gomez 07/05/21 08:58> *History of present illness: Patient is a 80-year-old female admitted as an acute inpatient from [facility]. This morning she is lying in bed and her son and [id number] are present with her at the bedside. The patient reports she presented to the emergency department yesterday 07/04/2021 after sustaining a fall while walking up stairs. She reports she was walking up the stairs to her friend's house when she tripped and fell, causing her to injure her left shoulder. X-rays performed at [facility] demonstrate a displaced left humeral neck fracture. At baseline, the patient reports that she is independent for all activities of daily living. She lives alone and does her own shopping and driving. This morning the patient says she has some pain in her left shoulder but that it has been well controlled with pain medication. Her past medical history includes hypertension. No history of any other injuries. She is a non-smoker. She denies loss of consciousness, head injury, neck pain, chest pain, shortness of breath, distal tingling/numbness, or any other symptoms or concerns at this time. <Daily Gomez 07/05/21 15:43> [facility] History Medical History: Reports:: Hypertension Denies:: Cancer, Diabetes Mellitus Type 1, Diabetes Mellitus Type 2, Internal Pacemaker, MRSA, Seizures <Daily Gomez 07/05/21 08:58> *Have you ever received a pneumonia vaccine?: Yes <Daily Gomez 07/05/21 08:58> *Have you received a flu vaccine this season?: Yes <Daily Gomez 07/05/21 08:58> Laterality Cases: Bilateral: Tonsillectomy <Daily Gomez 07/05/21 08:58> Other Surgeries: No: Pacemaker <Daily Gomez 07/05/21 08:58> Amputation: No <Daily Gomez 07/05/21 08:58> Fractures: No <Daily Gomez 07/05/21 08:58> - *Social History Last grade of school completed: 11th or 12th <Daily Gomez 07/05/21 08:58> Smoking Status: Never smoker <Daily Gomez 07/05/21 08:58> Alcohol Intake: never <Daily Gomez 07/05/21 08:58> Substance Use Type: denies use <Daily Gomez 07/05/21 08:58> *Occupational Status:: retired <Daily Gomez 07/05/21 08:58> Housing: house <Daily Gomez 07/05/21 08:58> *Travel in the last 8 weeks: None <Daily Gomez 07/05/21 08:58> Family Hx:: Cancer, Diabetes <Daily Gomez 07/05/21 08:58> Review of Systems - Review of Systems Review of systems:: pertinent systems reviewed and negative unless documented below <Daily Gomez 07/05/21 09:10> - Constitutional Denies chills, Denies fatigue, Denies fever(s), Denies malaise, Denies weakness <Daily Gomez 07/05/21 09:10> - *Cardiovascular Denies chest pain, Denies chest pain at rest, Denies chest pain with activity, Denies shortness of breath <Daily Gomez 07/05/21 09:10> - *Respiratory Denies chest congestion, Denies cough, Denies shortness of breath, Denies wheezing <Daily Gomez 07/05/21 09:10> - *Gastrointestinal Denies abdominal pain, Denies nausea, Denies vomiting <Daily Gomez 07/05/21 09:10> - *Genitourinary Denies difficulty urinating, Denies painful urination, Denies urinary urgency <Daily Gomez 07/05/21 09:10> - *Musculoskeletal Reports joint pain, Reports limited joint movement, Denies abnormal walking, Denies back pain, Denies neck pain, Denies numbness, Denies tingling <Daily Gomez 07/05/21 09:10> - *Neurologic Denies abnormal walking, Denies abnormal speech, Denies dizziness, Denies numbness, Denies tingling, Denies weakness <Daily Gomez - 07/05/21 09:10> Meds Home Medications Medication Instructions Recorded Confirmed Type Enalapril Maleate [Vasotec] 20 mg PO DAILY 03/31/19 07/04/21 History Metoprolol Tartrate [Lopressor 25 mg PO BID 03/31/19 07/04/21 History 2
--- NOTE | 2021-07-05 11:16 | PC.NURSE ---
Pt down to pre-op @ this time
--- NOTE | 2021-07-05 11:41 | HMH.ANESCL ---
[facility] Anesthesia Checklist - Patient Identification Patient Identification: Arm Band - Structural Data Admitted From: Home Planned Operative Procedure/s: ORIF humerus Consent for Planned Operative Procedure(s) Verified: Yes - NPO Status Verified Time NPO: 00:00 - Airway Assessment C-Spine Mobility Assessed: Yes TMJ Mobility Assessed: Yes Dentition: Edentulous - Neurological Assessment Level of Consciousness: Awake Hx Seizures: No Numbness or tingling in extremities: No - Anesthesia Plan Anesthesia Risk discussed: Yes Anesthesia Plan: Verified ASA Class: II Anesthesia Type: General w/block [facility] History I have reviewed the patient's past medical history: Yes Medical History: Reports:: Hypertension Denies:: Cancer, Diabetes Mellitus Type 1, Diabetes Mellitus Type 2, Internal Pacemaker, MRSA, Seizures *Have you ever received a pneumonia vaccine?: Yes *Have you received a flu vaccine this season?: Yes Anesthesia experience/problems:: difficulty waking up Laterality Cases: Bilateral: Tonsillectomy Other Surgeries: No: Pacemaker Amputation: No Fractures: No - *Social History Last grade of school completed: 11th or 12th Smoking Status: Never smoker Alcohol Intake: never Substance Use Type: denies use *Occupational Status:: retired Housing: house *Travel in the last 8 weeks: None Family Hx:: Cancer, Diabetes
--- NOTE | 2021-07-05 13:00 | P.CONPHA_ITS ---
[facility] Pharmacy VTE Monitoring - Patient Demographics Admission date: 07/04/21 Report Date: 07/05/21 Time: 13:00 Allergies/Adverse Reactions: Patient Allergies ciprofloxacin [From CIPRO] Allergy (Unknown, Verified 03/31/19 19:02) estrogens, conjugated [From PREMPRO] Allergy (Unknown, Verified 03/31/19 19:02) ibuprofen [From MOTRIN] Allergy (Unknown, Verified 03/31/19 19:02) medroxyprogesterone [From PREMPRO] Allergy (Unknown, Verified 03/31/19 19:02) nebivolol [From BYSTOLIC] Allergy (Unknown, Verified 03/31/19 19:02) oxybutynin [From DITROPAN] Allergy (Unknown, Verified 03/31/19 19:02) phenazopyridine [From PYRIDIUM] Allergy (Unknown, Verified 03/31/19 19:02) Sulfa (Sulfonamide Antibiotics) [SULFA (SULFONAMIDE ANTIBIOTICS)] Allergy (Unknown, Verified 03/31/19 19:02) tolterodine [From DETROL] Allergy (Unknown, Verified 03/31/19 19:02) doxycycline Allergy (Verified 07/04/21 16:06) Height: 1.73 m Weight: 69.944 kg Patient Problems: Current Active Problems Hypertension (Acute) Comminuted left humeral fracture (Acute) - VTE Risk Labs: VTE Related Lab Results Hgb 11.9 g/dL (12.2-16.2) L 07/04/21 10:40 Hct 36.7 % (37.0-47.0) L 07/04/21 10:40 Plt Count 293 K/mm3 (142-424) 07/04/21 10:40 BUN 10 mg/dl (7-17) 07/04/21 10:40 Creatinine 0.60 mg/dl (0.52-1.04) 07/04/21 10:40 Estimated Creat Clear 50 mL/min (50-200) 07/04/21 10:40 Was VTE Risk Assessment Performed: Yes VTE Score: 1 VTE Risk Level: Very Low Risk - Prophylaxis VTE Prophylaxis Ordered?: Yes Types of VTE Prophylaxis: TEDS Knee High Location of Applied Device: Bilateral Lower Extremeties
--- NOTE | 2021-07-05 14:51 | XR_ITS ---
PROCEDURE: XR HUMERUS LT CLINICAL INDICATION: ORIF PROXIMAL HUMERUS COMPARISON: CR XR HUMERUS LT from 07/04/2021 FINDINGS: Fluoroscopy time: 2.23 minutes. 2 images submitted with the C-arm demonstrates interval placement an intramedullary marc with multiple cortical screws in the right humerus with improved alignment of the fracture fragments. There is mild anterior medial displacement of the distal fracture fragment. Other findings:None. IMPRESSION: Good alignment status post ORIF proximal left humeral fracture with mild medial and anterior displacement of the distal fracture fragment Dictated by: Jian Edwards MD 07/05/2021 15:08 Jian Edwards MD in [place] 07/05/2021 15:08
--- NOTE | 2021-07-05 15:30 | HMH.ANESI ---
[facility] Anesthesia Record Part I Intake, IV Amount: 1,000 Estimated blood loss (mL): 50 Urine output (mL): 0 Blood Pressure: 118/54 SaO2: 96 Pulse Rate: 72 Respiratory Rate: 12 Temperature: 97.9 F Patient is:: Awake, Stable Stable to PACU at:: 15:25
--- NOTE | 2021-07-05 18:39 | PC.NURSE ---
Pt returned back to floor @ 1605, bedside report received from Macey Hope RN. Pt has rested comfortably. Not requiring supp O2, sat mid 90's. Resp even, unlabored. Polar pac in place to L shoulder. Denies pain. Scuds to BLE. VSS. No complaints voiced. Call hull w/in reach. Bed alarm in place.
--- NOTE | 2021-07-05 19:27 | HMH.OPNOTE ---
Date of procedure: 07/05/21 Pre-op Diagnosis:: Closed, displaced, comminuted proximal humerus fracture, LEFT shoulder Post-op Diagnosis:: Same Procedure performed:: Closed reduction and intramedullary nailing, LEFT proximal humerus fracture Surgeon:: Yg Sunshine MD Logging Contractor(s):: Daily Gomez PA-C [employer]LEMENT[employer] MUSIC TEACHER:: Miguel Angel Gilmore Anesthesia: GETA, regional (Supraclavicular nerve block) Estimated blood loss (mL): 50 Clinical Note:: Patient is a 80-year-old [id number] female, who sustained a closed, comminuted and displaced proximal humerus fracture after sustaining a fall while walking up stairs. She reports she was walking up the stairs to her friend's house when she tripped and fell, causing her to injure her left shoulder. X-rays and noncontrast CT scan demonstrate a comminuted, displaced left proximal humerus fracture. At baseline, she is independent for all activities of daily living. She lives alone and does her own shopping and driving. Her past medical history includes hypertension. No history of any other injuries. She is a non-smoker. No history of any distal tingling or numbness. Following evaluation in the ER, including CT scan, patient was admitted to the hospital for surgical management of the fracture. I have discussed the management options in detail including both nonsurgical and surgical with the patient and her son. Given the fracture pattern with significant displacement, a closed/open reduction and internal fixation is indicated to relieve pain and improve function. Following a detailed discussion she elected to proceed with surgical remediation of the proximal humerus fracture. I have discussed the details of the procedure, risks and benefits and alternatives at length. Please refer to orthopedic consult note for full details. Operative findings:: Comminuted and displaced fracture of the proximal humerus with anterior and medial displacement of the distal fragment. There was significant comminution at the fracture site as noted on the preoperative imaging. The rotator cuff tendons were intact without any evidence of obvious tendon tear. Bone quality is osteoporotic. Operative note:: Prior to surgery the patient was met in the preoperative area and positively identified. I have again discussed the diagnosis, management options including both nonsurgical and surgical. She opted to proceed with surgical remediation. I have discussed the details of the procedure, risks and benefits and alternatives. Risks of surgery discussed include but are not limited to- infection, bleeding injury to nerves, tendons and blood vessels, bleeding, primary/secondary screw perforation of the humeral head, subacromial impingement, nerve injury/palsy, specifically of the axillary nerve, avascular necrosis of humeral head, incisional scar (cosmesis), DVT/PE, malunion, nonunion/delayed union, refracture, shoulder/elbow stiffness, persistent pain, CRPS (complex regional pain syndrome- pain, sensory and temperature changes, swelling and stiffness), painful/prominent hardware, loss of fixation/hardware failure, incomplete relief of pain, incomplete return of function, and likely need for further surgery in future and also the risks of anesthesia including heart attack, stroke, and even . We've also explained how additional surgery may be required if there are any complications or the fracture fails to heal. I have discussed about the likely need for reverse total shoulder arthroplasty, if the fracture cannot be appropriately reduced and fixed or if there is a large repairable rotator cuff tear. I have also discussed the option of nonsurgical treatment. The patient and her son expressed good understanding and have asked appropriate questions. All their questions were answered and they verbalized a good understanding. A physical exam was performed and documented. The limb was marked and initialed by me. Patient understood the risks, agreed to proceed
--- NOTE | 2021-07-05 20:21 | HMH.ORTHPN ---
Subjective Date: 07/05/21 Time: 20:21 Principal diagnosis: Fracture proximal humerus, left Interval history: Patient is status post intramedullary nailing, LEFT proximal humerus fracture, post op day #0. Patient is lying down on the bed and says she is doing well. She says the nodule block is working well and she has no pain at all. No history of any nausea or vomiting. No history of any cough, chest pain, shortness of breath or palpitations. Patient says she is eating and drinking well. PN: Obj Ex Vital signs: Temp Pulse Resp BP Pulse Ox 98.3 F 91 H 18 136/67 100 07/05/21 18:50 07/05/21 18:50 07/05/21 18:50 07/05/21 18:50 07/05/21 18:50 Narrative: Exam: General appearance: alert, active, awake, no acute distress Cardiovascular: regular rate & rhythm, normal peripheral pulses Respiratory: No respiratory distress noted, speaks in full sentences ABD: soft and non tender Neuro: alert, awake, oriented x 3 Psych: Appropriate mood and affect On examination of the left shoulder/arm, the dressings are clean, dry and intact. No bleeding or soakage of dressings noted. Distal pulses are 2+. She is actively mobilizing wrist and fingers. Progress Note: A&P (1) Comminuted left humeral fracture Status: Acute (2) Hypertension Status: Acute Assessment and Plan for All Diagnoses:: I have reviewed the operative findings and procedure performed with the patient. Patient is doing well and reports no problems. Her nerve block is working well and she has no pain or discomfort at present. Advised her to continue elevation, active mobilization of the elbow, wrist and fingers, use of polar pack and pain medication as needed. Continue medical management as per Dr. Cunha.
[2021-07-06] VITALS: BP 120/57; PULSE 76; RESP 18; TEMP 36.9; O2SAT 97
[2021-07-06 04:00] VITALS: BP 132/60; PULSE 75; RESP 16; TEMP 36.3; O2SAT 99
--- NOTE | 2021-07-06 06:16 | PC.NURSE ---
Pt has c/o of mild pain x1 this shift, admin med per OCT. Polar pack and dressing in place on left humerus area. Pt has used BSC to void this shift. Call light within reach.
[2021-07-06 06:40] LABS: Basophils % 0.1 % (0.1-2.0); Eosinophils % 0.3 % (0.1-12.0); Hematocrit 29.2 % (37.0-47.0); Hemoglobin 9.9 g/dL (12.2-16.2); Lymphocytes # 1.9 K/mm3 (0.7-4.5); Lymphocytes % 15.7 % (10-50); Mean Corpuscular HGB Conc 33.8 g/dL (31.8-35.4); Mean Corpuscular Volume 91.7 fl (81-99); Mean Platelet Volume 8.7 fl (7.4-10.4); Monocytes # 0.7 K/mm3 (0.1-1.0); Monocytes % 5.7 % (1.7-9.3); Neutrophils # 9.6 K/mm3 (1.8-7.8); Neutrophils % 78.2 % (37.0-80.0); Platelet Count 220 K/mm3 (142-424); Red Blood Count 3.19 M/mm3 (4.20-5.40); Red Cell Distribution Width 13.3 % (11.5-17.5); White Blood Count 12.3 K/mm3 (4.8-10.8)
--- NOTE | 2021-07-06 07:01 | HMH.DCSUM ---
General - General Admission date:: 07/04/21 Discharge date: 07/06/21 HPI HPI: 80-year-old white female who is extremely active, lives by herself, does all of her own self-care activities who was going to sit with a friend who ironically had recently had a hip fracture and she was climbing up her friends steps to her front door when she slipped and reached out to grab herself for balance on the stair rail and kept falling. She was unable to move her arm afterwards, came to the emergency department, found to have a humerus fracture. Admitted to hospital for ORIF today. No chest pain, shortness of air, recent problems with dyspnea, edema or other cardiac or pulmonary symptoms. Hospital Course Hospital Course: Patient admitted for left humeral fracture. Orthopedics consulted. Taken for ORIF last night. Tolerated procedure well with good results. This morning patient is hemodynamically stable, pain well controlled with nerve block. Tolerating good p.o. intake this morning. Neurovascularly intact distal to surgical site. At this time patient is medically stable for discharge home. Has family that will be living with her for the next week or more. Also has family that lives right next door they can check on her regularly. Physical therapy and Occupational Therapy have seen her and cleared her for discharge. Discharge home. Objective Vital signs: Temp Pulse Resp BP Pulse Ox 97.4 F L 75 16 132/60 99 07/06/21 04:00 07/06/21 04:00 07/06/21 04:00 07/06/21 04:00 07/06/21 04:00 Narrative: - Constitutional no acute distress - *Routine HEENT Exam Head: Present: normocephalic Eye: Present: EOMI, PERRL ENT: Present: mucous membranes moist - *Routine Neck Exam Present: supple. Absent: lymphadenopathy - *Routine Respiratory Exam Present: CTA bilaterally - *Routine Cardiovascular Exam Present: RRR - *Routine Abdominal Exam Present: soft, normoactive bowel sounds. Absent: tenderness - *Routine Extremities Exam Absent: cyanosis, clubbing, edema; Left arm in sling. Distal pulses good. - *Routine Skin Exam Present: warm. Absent: rash - *Routine Neurological Exam Present: alert, oriented X3 Results Labs on day of discharge: Labs from last 24 hours 07/06/21 07/05/21 06:22 06:11 WBC 12.3 H D RBC 3.19 L Hgb 9.9 L Hct 29.2 L MCV 91.7 MCH 31.0 MCHC 33.8 RDW 13.3 Plt Count 220 MPV 8.7 Neut % (Auto) 78.2 Lymph % (Auto) 15.7 Harris % (Auto) 5.7 Eos % (Auto) 0.3 Baso % (Auto) 0.1 Neut # (Auto) 9.6 H Lymph # (Auto) 1.9 Harris # (Auto) 0.7 Eos # (Auto) 0.0 Baso # (Auto) 0.0 Blood Type A Positive Antibody Screen Negative DS: Diagnosis - Discharge Diagnosis (1) Comminuted left humeral fracture Status: Acute (2) Hypertension Status: Acute Discharge Plan - Patient Discharge Instructions ACTIVITY: Continue current activity DIET: continue same diet Patient Instructions: High Blood Pressure (Hypertension) (Alternative Therapy), DI for Malignant Hypertension, DI for High Blood Pressure, DI for Surgical Site Infection, Surgical Site Infection - Follow up Plan Follow up with: Robinson Barros MD [Staff Physician] - 07/17/21 9:15 am Yg Sunshine MD [Staff Physician] - 07/18/21 3:15 pm (Arrive 30 minutes early for x-rays.) Disposition: Home, Self-Care Condition at discharge:: Stable Home Medications: Home Medications Medication Instructions Recorded Confirmed Type Enalapril Maleate [Vasotec] 20 mg PO DAILY 03/31/19 07/04/21 History Metoprolol Tartrate [Lopressor 25 mg PO BID 03/31/19 07/04/21 History 25mg tablet] Amlodipine Besylate 5 mg PO HS 07/04/21 07/04/21 History Aspirin [Aspirin 81mg chewable 81 mg PO DAILY 07/04/21 07/04/21 History tab] Buspirone HCl [Buspar 10mg 5 mg PO BID 07/05/21 07/05/21 History tablet] Ketorolac Tromethamine [Toradol 10 mg PO Q6HP PRN 4 Days #16 tab 07/06/21
[2021-07-06 07:28] LABS: Anion Gap 9.5 mEq/L (5-15); Blood Urea Nitrogen 11 mg/dl (7-17); Carbon Dioxide 26 mmol/L (22.0-30.0); Chloride 99 mmol/L (98-107); Creatinine Clearance Estimated 51 mL/min (50-200); Estimated Glomerular Filt Rate 97 ml/min (>60); GFR (African American) 117 ML/MIN (>60); Glucose 105 mg/dl (74-100); Potassium 4.5 mmoL/L (3.5-5.1); Sodium 130 mmol/L (136-145)
[2021-07-06 07:38] VITALS: BP 141/70; PULSE 73; RESP 18; TEMP 36.7; O2SAT 98
[2021-07-06 08:00] VITALS: O2SAT 96
--- NOTE | 2021-07-06 08:03 | P.PN_ITS ---
[facility] Anesthesia Record Part II Discharge Time: 15:55 Destination: floor PACU nurse assessment reviewed?: Yes Patient Condition:: Good Anesthesia Complications:: None Swallowing reflex intact?: Yes Cyanosis?: No Blood Pressure: 138/57 Pulse Rate: 69 Temperature: 98.6 F Mental Status: Alert & Oriented Pain level:: 2 Nausea and/or vomitting:: None Intake, IV Amount: 1,000
[2021-07-06 08:04] VITALS: BP 138/57; PULSE 69; TEMP 37
--- NOTE | 2021-07-06 09:27 | HMH.ORTHPN ---
Subjective Date: 07/06/21 <Daily Gomez - 07/06/21 09:50> Time: 09:00 <Daily Gomez - 07/06/21 09:50> Principal diagnosis: Fracture proximal humerus, left <Daily Gomez - 07/06/21 09:50> Interval history: Patient is a 80-year-old female who underwent an uneventful intramedullary nailing of the left proximal humerus yesterday 07/05/2021. Today she is postop day 1. This morning the patient is lying in bed comfortably and states that she is doing well. She reports that she is having very minimal left shoulder pain which is well controlled with medication. She states that she is eating and drinking well and has been up and mobilizing. She denies nausea, vomiting, shortness of breath, chest pain, distal tingling/numbness, or any other symptoms or concerns at this time. <Daily Gomez - 07/06/21 09:51> PN: Obj Ex Vital signs: Temp Pulse Resp BP Pulse Ox 98.6 F 69 18 138/57 L 98 07/06/21 08:04 07/06/21 08:04 07/06/21 07:38 07/06/21 08:04 07/06/21 07:38 <Yg Sunshine - 07/06/21 15:07> Temp Pulse Resp BP Pulse Ox 98.6 F 69 18 138/57 L 98 07/06/21 08:04 07/06/21 08:04 07/06/21 07:38 07/06/21 08:04 07/06/21 07:38 <GomezDaily - 07/06/21 09:50> - Constitutional no acute distress, cooperative <Daily Gomez 07/06/21 09:50> - Routine HEENT Exam Head: Present: normocephalic, atraumatic <GomezDaily 07/06/21 09:50> Eye: Present: EOMI, PERRL <GomezDaily 07/06/21 09:50> ENT: Present: mucous membranes moist <JasonDaily 07/06/21 09:50> - Routine Neck Exam Present: supple, full ROM, trachea midline. Absent: JVD <Daily Gomez 07/06/21 09:50> - Routine Respiratory Exam Absent: accessory muscle use, respiratory distress <Daily Gomez 07/06/21 09:50> Comments: Symmetric chest movement, able to speak in complete sentences <Daily Gomez 07/06/21 09:50> - Routine Cardiovascular Exam Present: RRR. Absent: JVD <Daily Gomez 07/06/21 09:50> Comments: Normal peripheral pulses <Daily Gomez 07/06/21 09:50> - Routine Abdominal Exam Present: soft, normoactive bowel sounds. Absent: tenderness <Daily Gomez 07/06/21 09:50> - Routine Extremities Exam Present: pulses intact, normal capillary refill. Absent: calf tenderness <Daily Gomez 07/06/21 09:50> Comments: Upon examination of the left upper extremity: The surgical incisions appear clean, dry, and healthy. No erythema, induration, drainage, bleeding, or other signs of infection noted. There is diffuse ecchymosis present around the shoulder and proximal humerus. The left shoulder and proximal humerus are tender to palpation. Attempted movements of the left shoulder are limited secondary to pain/stiffness. Range of motion of the elbow, forearm, wrist, and fingers are full and nonpainful. Radial pulse 2+; capillary refill is brisk in all fingers. Sensation to light touch is grossly intact throughout. <Daily Gomez 07/06/21 09:50> - Routine Skin Exam Present: intact, normal turgor, ecchymosis. Absent: erythema, lesions <Daily Gomez 07/06/21 09:50> - Routine Neurological Exam Present: alert, oriented X3, moving all extremities, normal tone, normal speech. Absent: sensory deficit, motor deficit, altered mental status <GomezDaily lopez 07/06/21 09:50> - Routine Psychiatric Exam Present: normal affect, normal thought process, cooperative <Daily Gomez 07/06/21 09:50> Progress Note: A&P (1) Comminuted left humeral fracture Status: Acute (2) Hypertension Status: Acute <Yg Sunshine - 07/06/21 15:07> (1) Comminuted left humeral fracture Status: Acute (2) Hypertension Status: Acute <Daily Gomez - 07/06/21 09:57> Assessment and Plan for All Diagnoses:: I have personally examined this patient, and have reviewed the clinical presentation and progress note, including the pertinent radiograph
--- NOTE | 2021-07-06 09:57 | SW/DCPLANNER ---
RECEIVED REFERRAL FOR THIS PATIENT FOR DISCHARGE PLANNING> PATIENT IS DISCHARGING HOME AND HAS FAMILY THAT WILL BE STAYING WITH HER AROUND THE CLOCK UNTIL AFTER THE HOLIDAYS.. NO ORDERS FOR ANY HOME CARE AT THIS TIME...PATIENT DID WELL WITH HER STAY AND IS TO FOLLOW UP NEXT WEEK..
--- NOTE | 2021-07-06 10:16 | HMH.OTEV ---
OT Inpatient Evaluation Rehab OT IP Evaluation Start: 07/05/21 07:47 Freq: ONCE Status: Complete Protocol: Document 07/06/21 10:11 [facility] (Rec: 07/06/21 10:16 [facility] [id number]) Rehab OT IP Assessment Subjective History Pt oriented x 4 on arrival. Pt agreeable to engage in therapy evaluation. Pt polite and cooperative. Pt was admitted via ED on 07/04/21 due to L humerus fx. Pt reports she was walking up steps when she tripped and fell landing on L shoulder. Pt required surgical intervention on 07/05/21. Pt has a past medical history of Cancer, Diabetes Mellitus Type 1, Diabetes Mellitus Type 2, Internal Pacemaker, MRSA, Seizures. Pt reports prior to her fall she lived alone. She explains she was independent with all ADLs and IADLs. She did not require any AE during ambulation; she also still drove. Subjective I could do whatever I needed to. Pt independent with bed mobility to go from supine to sitting at eob. Pt stood from eob with sba. Pt engaged in functional transfer from bed to bathroom with sba. Pt sat down on toilet with sba. Pt was independent with toileting hygiene. Pt stood from toilet with sba and grab bars. Pt transferred back to chair with sba. Pt was left in chair with call hull and all other needs in reach. Objective Patient Orientation Person,Place,Birthday,Year Upper Extremity Gross ROM WFL Bed Mobility bed mobility-scooting,bed mobility - supine/sit,bed mobility - rolling Assist Level Supervision/Stand by Transfer Training Sit/Stand Transfer Assist Level Supervision/Stand by Chair Transfer Ability Supervision/Stand by Chair Transf
--- NOTE | 2021-07-06 11:09 | HMH.PTEV ---
Physical Therapy Evaluation Rehab PT IP Evaluation Start: 07/05/21 07:47 Freq: ONCE Status: Active Protocol: Document 07/06/21 11:07 [facility] (Rec: 07/06/21 11:09 PHORADHA [id number]) Subjective/History History History 80 yowf adm to [facility] after fall with L humerus fx, now S/P ORIF. She reports living independently, but has help aavailable, and was independent with all mobility prior to adm. Subjective Subjective Pt with no c/o this am. Rehab PT IP Eval Objective Appearance Patient Behavior Appropriate Patient Orientation Person,Place,Time Difficulty following instructions none Speech Pattern Clear Ambulation Patient Able to Ambulate Yes Ambulation Observation IP General Gait Pattern Observation No Deviations/Normal Ambulation Distance (feet) 30 Ambulation Assistive Device None Ambulation Ability Independent Balance Ability to Arise Able, uses arms to help Sitting Balance Steady, safe Standing Balance Steady, wide stance Dynamic Sitting Balance Ability Good Dynamic Standing Balance Ability Good Transfers Bed Transfer Ability Independent Chair Transfer Ability Independent Sit to Stand Bed Transfer Ability Independent Sit to Stand Chair Transfer Ability Independent Rehab PT IP prob,goals,plan Problems Date of Evaluation: 07/06/21 Discharge Plan PT Discharge Plan Pt is appropriate to return home once medically stable at this time. G -code Required No Eval Complexity Eval Charge Codes 81250 - Moderate Complexity PHYSICIAN CERTIFICATION: I certify the specified therapy services for Lilliam Ross are required, authorized, and reviewed every 30 days.
== END 2021-07-06 13:25 | disposition home or self-care (01) ==
LOC: ER 16:01 → 2ND 16:27
PROVIDERS: Orthopaedic Surgery; Admitting Provider Internal Medicine Adolescent Medicine; Emergency Provider Emergency Medicine; PCP Internal Medicine Adolescent Medicine; Visit Provider Internal Medicine Adolescent Medicine
DX: S42.292A Other displaced fracture of upper end of left humerus, initial encounter for closed fracture (principal); Z20.822 Contact with and (suspected) exposure to COVID-19; I10 Essential (primary) hypertension; Z88.8 Allergy status to other drugs, medicaments and biological substances; Z79.899 Other long term (current) drug therapy; Y92.018 Other place in single-family (private) house as the place of occurrence of the external cause; W10.8XXA Fall (on) (from) other stairs and steps, initial encounter
CPT/HCPCS: 23605; G0378; 36415; 73030; 73060; 73070; 73090; 73200; 80048; 80053; 85025; 86850; 96374; 96375; 97162; 97166; 99284; C1713; C1769; C9803; J2405; J2710; U0003; U0005

== ENCOUNTER → 2021-07-18 14:16 | Outpatient (CLI) | payer MEDICARE, SELFPAY ==
--- NOTE | 2021-07-18 14:20 | XR_ITS ---
PROCEDURE: XR HUMERUS LT XR shoulder left CLINICAL INDICATION: nailing LT humerus, sx 07/05/21 COMPARISON: CR XR HUMERUS LT from 07/04/2021 CR XR HUMERUS LT from 07/05/2021 CR XR SHOULDER LT MIN 2V from 07/18/2021 FINDINGS: Left humerus: Status post ORIF left humeral neck fracture. Intramedullary marc with for stabilizing screws are present. The 3rd from the counter top assembler appears to extend into the fracture line. There is 12 mm anterior displacement of the distal fracture fragment. There is mild dorsal angulation of the distal fracture fragment. The medial and anterior displacement has improved compared to the preop exam of 07/04/2021. Left shoulder: Status post ORIF left humeral neck fracture. The humeral head is located. The glenohumeral joint and acromioclavicular joint have an unremarkable appearance. IMPRESSION: Status post ORIF left humeral neck fracture as described above with mild anterior displacement and mild dorsal angulation of the distal fracture fragment. Dictated by: Jian Edwards MD 07/18/2021 15:24 Jian Edwards MD in [place] 07/18/2021 15:24
--- NOTE | 2021-07-18 14:20 | XR_ITS ---
PROCEDURE: XR HUMERUS LT XR shoulder left CLINICAL INDICATION: nailing LT humerus, sx 07/05/21 COMPARISON: CR XR HUMERUS LT from 07/04/2021 CR XR HUMERUS LT from 07/05/2021 CR XR SHOULDER LT MIN 2V from 07/18/2021 FINDINGS: Left humerus: Status post ORIF left humeral neck fracture. Intramedullary marc with for stabilizing screws are present. The 3rd from the top knitter appears to extend into the fracture line. There is 12 mm anterior displacement of the distal fracture fragment. There is mild dorsal angulation of the distal fracture fragment. The medial and anterior displacement has improved compared to the preop exam of 07/04/2021. Left shoulder: Status post ORIF left humeral neck fracture. The humeral head is located. The glenohumeral joint and acromioclavicular joint have an unremarkable appearance. IMPRESSION: Status post ORIF left humeral neck fracture as described above with mild anterior displacement and mild dorsal angulation of the distal fracture fragment. Dictated by: Jian Edwards MD 07/18/2021 15:24 Jian Edwards MD in [facility] 07/18/2021 15:24
== END ==
PROVIDERS: PCP Internal Medicine Adolescent Medicine; Visit Provider Orthopaedic Surgery
DX: Z09 Encounter for follow-up examination after completed treatment for conditions other than malignant neoplasm (principal); S42.302D Unspecified fracture of shaft of humerus, left arm, subsequent encounter for fracture with routine healing
CPT/HCPCS: 73030; 73060

== ENCOUNTER → 2021-08-01 09:26 | Outpatient (CLI) | payer MEDICARE, SELFPAY ==
--- NOTE | 2021-08-01 09:32 | XR_ITS ---
PROCEDURE: XR SHOULDER LT MIN 2V CLINICAL INDICATION: sp pinning LT prox humerus, sx 07/05/21 COMPARISON: CR XR SHOULDER LT MIN 2V from 07/04/2021 CR XR SHOULDER LT MIN 2V from 07/18/2021 FINDINGS: Prior ORIF left humeral neck fracture with short intramedullary marc and 4 screws stabilizing the marc. There is minimal medial and anterior displacement of the distal fracture fragment with callus formation developing laterally. No evidence of glenoid dislocation. The superior screw within the intramedullary marc does appear to extend just beyond the articular surface of the humeral head by approximately 2 mm. IMPRESSION: S/p ORIF humeral neck fracture as described above with developing callus formation. The superior most screw appears to extend approximately 2 mm beyond medial articular surface of the humeral head. Dictated by: Jian Edwards MD 08/01/2021 12:50 Jian Edwards MD in [place] 08/01/2021 12:50
== END ==
PROVIDERS: PCP Internal Medicine Adolescent Medicine; Visit Provider Orthopaedic Surgery
DX: S42.302A Unspecified fracture of shaft of humerus, left arm, initial encounter for closed fracture (principal); Z09 Encounter for follow-up examination after completed treatment for conditions other than malignant neoplasm
CPT/HCPCS: 73030

== ENCOUNTER → 2021-08-29 08:53 | Outpatient (CLI) | payer MEDICARE, SELFPAY ==
--- NOTE | 2021-08-29 08:58 | XR_ITS ---
FINAL REPORT CLINICAL HISTORY: sp LT humerus pinning sx 07/05/21 COMPARISON: August 01, 2021 FINDINGS: LEFT SHOULDER: 3 views of the left shoulder were obtained. There is a comminuted fracture of the proximal humerus with changes of ORIF. There is evidence of healing with callus formation. The most superior screw extends through the medial cortex up to 13 mm. The screw just inferior to this extensive through the medial cortex 3 mm. IMPRESSION: Healing proximal humerus fracture with changes of ORIF. The 2 most superior screws extend through the medial cortex as above. Reviewed, Interpreted and Dictated by Berry Myers III, MD Transcribed by Gorge Brito Authenticated by Berry Myers III, MD on 08/29/2021 09:58:11 AM [facility]
[2021-08-29 12:07] LABS: Basophils # 0.1 K/mm3 (0-0.2); Basophils % 0.7 % (0.1-2.0); Eosinophils # 0.7 K/mm3 (0.0-0.4); Eosinophils % 8.1 % (0.1-12.0); Hematocrit 39.4 % (37.0-47.0); Hemoglobin 12.5 g/dL (12.2-16.2); Lymphocytes # 2.3 K/mm3 (0.7-4.5); Lymphocytes % 25.4 % (10-50); Mean Corpuscular HGB Conc 31.7 g/dL (31.8-35.4); Mean Corpuscular Hemoglobin 30.6 pg (27.0-31.2); Mean Corpuscular Volume 96.3 fl (81-99); Mean Platelet Volume 8.2 fl (7.4-10.4); Monocytes # 0.4 K/mm3 (0.1-1.0); Monocytes % 4.7 % (1.7-9.3); Neutrophils # 5.6 K/mm3 (1.8-7.8); Neutrophils % 61.2 % (37.0-80.0); Platelet Count 330 K/mm3 (142-424); Red Blood Count 4.09 M/mm3 (4.20-5.40); Red Cell Distribution Width 13.2 % (11.5-17.5); White Blood Count 9.2 K/mm3 (4.8-10.8)
[2021-08-29 12:49] LABS: Chloride 97 mmol/L (98-107); Sodium 132 mmol/L (136-145)
[2021-08-29 12:50] LABS: Potassium 5.1 mmoL/L (3.5-5.1)
[2021-08-29 12:52] LABS: Alanine Aminotransferase 28 U/L (12-78); Albumin Level 4.3 g/dl (3.5-5.0); Alkaline Phosphatase 106 U/L (38-126); Anion Gap 12.1 mEq/L (5-15); Aspartate Amino Transferase 51 U/L (14-36); Bilirubin,Total 0.3 mg/dl (0.2-1.3); Blood Urea Nitrogen 11 mg/dl (7-17); Calcium 9.5 mg/dl (8.4-10.2); Carbon Dioxide 28 mmol/L (22.0-30.0); Estimated Glomerular Filt Rate 119 ml/min (>60); GFR (African American) 144 ML/MIN (>60); Globulin 4.4 g/dL (1.3-3.2); Glucose 94 mg/dl (74-100); Total Protein,Serum 8.7 g/dl (6.3-8.2)
== END ==
PROVIDERS: PCP Internal Medicine Adolescent Medicine; Visit Provider Orthopaedic Surgery
DX: S42.302A Unspecified fracture of shaft of humerus, left arm, initial encounter for closed fracture (principal); Z09 Encounter for follow-up examination after completed treatment for conditions other than malignant neoplasm
CPT/HCPCS: 36415; 73030; 80053; 85025

== ENCOUNTER → 2021-08-29 11:32 | Outpatient (CLI) | payer MEDICARE, SELFPAY | PROVIDERS: PCP Internal Medicine Adolescent Medicine; Visit Provider Orthopaedic Surgery | DX: Z01.818 Encounter for other preprocedural examination (principal) | CPT/HCPCS: 36415; 80053; 85025 ==

== ENCOUNTER → 2021-09-04 08:35 | Outpatient (CLI) | payer MEDICARE, SELFPAY | PROVIDERS: Visit Provider Orthopaedic Surgery | DX: Z01.818 Encounter for other preprocedural examination (principal); Z11.52 Encounter for screening for COVID-19; S42.302A Unspecified fracture of shaft of humerus, left arm, initial encounter for closed fracture | CPT/HCPCS: C9803; U0003; U0005 ==

== ENCOUNTER 2021-09-06 09:47 | Day surgery (SDC) | payer MEDICARE, SELFPAY ==
[2021-09-05 09:52] VITALS: BMI 22.8
[2021-09-06] VITALS (10 sets, daily range): BP systolic 120–158; BP diastolic 56–81; PULSE 65–75; RESP 16–22; TEMP 36.1–43; O2SAT 94–100
--- NOTE | 2021-09-06 13:31 | HMH.ANESCL ---
[facility] Anesthesia Checklist - Patient Identification Patient Identification: Arm Band, Verbal (Name & ) - Structural Data Admitted From: Home Planned Operative Procedure/s: Left Humerus Hardware Removal Consent for Planned Operative Procedure(s) Verified: Yes Verified Documents: Surgical Consent - NPO Status Verified Time NPO: 00:00 - Chart Verification Results Verified: CBC, BMP - Additional verifications Anesthesia Reactions: No Hx Blood Transfusions: No Blood Transfusion Reaction: No - Airway Assessment C-Spine Mobility Assessed: Yes TMJ Mobility Assessed: Yes - Neurological Assessment Level of Consciousness: Awake, Alert, Appropriate - Anesthesia Plan Anesthesia Type: General w/block [facility] History Medical History: Reports:: Hypertension Denies:: Cancer, Diabetes Mellitus Type 1, Diabetes Mellitus Type 2, Internal Pacemaker, MRSA, Seizures *Have you ever received a pneumonia vaccine?: Yes *Have you received a flu vaccine this season?: Yes Other Medical History: Denies: Blood Transfusion Reaction Anesthesia experience/problems:: none Laterality Cases: Bilateral: Tonsillectomy Other Surgeries: No: Pacemaker Amputation: No Fractures: No - *Social History Last grade of school completed: High school graduate Smoking Status: Never smoker Alcohol Intake: never Substance Use Type: denies use *Occupational Status:: retired Housing: house Household Members: none *Travel in the last 8 weeks: None Family Hx:: Heart Attack, Hypertension
--- NOTE | 2021-09-06 15:23 | XR_ITS ---
FINAL REPORT CLINICAL HISTORY: HARDWARE REMOVAL(screws) FINDINGS: FLUORO TIME PROCEDURE: Fluoroscopy in the operating room. FINDINGS: Fluoroscopy time was provided by the radiology department for the clinical service. Two films were obtained. Fluoroscopy exposure time: 0.5 minutes IMPRESSION: See above Reviewed, Interpreted and Dictated by Berry Myers III, MD Transcribed by Tamara Nichole Authenticated by Berry Myers III, MD on 09/06/2021 04:51:20 PM [facility]
--- NOTE | 2021-09-06 15:42 | HMH.ANESI ---
[facility] Anesthesia Record Part I Intake, IV Amount: 1,200 Estimated blood loss (mL): 100 Urine output (mL): 0 Blood Pressure: 137/60 SaO2: 94 Pulse Rate: 65 Respiratory Rate: 16 Temperature: 97.2 F Patient is:: Drowsy Stable to PACU at:: 15:32
--- NOTE | 2021-09-06 18:37 | P.PN_ITS ---
[facility] Anesthesia Record Part II Discharge Time: 16:02 Destination: home PACU nurse assessment reviewed?: Yes Patient Condition:: Good Anesthesia Complications:: None none Swallowing reflex intact?: Yes Cyanosis?: No Blood Pressure: 120/56 Pulse Rate: 69 Temperature: 97.3 F Mental Status: Alert & Oriented Pain level:: 0 Nausea and/or vomitting:: None Intake, IV Amount: 0
--- NOTE | 2021-09-06 21:19 | HMH.OPNOTE ---
Date of procedure: 09/06/21 Pre-op Diagnosis:: 1. Status post intramedullary nailing, left proximal humerus 2. Intra-articular screw penetration, left shoulder Post-op Diagnosis:: Same Procedure performed:: 1. Removal of proximal locking screws, left shoulder 2. Bone grafting, left proximal humerus Surgeon:: Yg Sunshine MD Assisted Living Manager(s):: Daily Gomez PA-C NURSING SERVICE DIRECTOR:: Other (Raymond Low) Anesthesia: GETA Estimated blood loss (mL): 100 Clinical Note:: Patient is a 81-year-old [id number] female, who underwent a proximal humeral nailing couple of months ago for a comminuted, displaced proximal humerus fracture. Subsequently, intra-articular screw penetration was noted and I have recommended removal of the proximal locking screws to prevent any damage to the glenoid articular surface and the surrounding structures. Following a detailed discussion she elected to proceed with the surgery. I have discussed the details of the procedure, risks and benefits and alternatives in detail. Her past medical history includes hypertension. She is a non-smoker. Please refer to orthopedic office note for full details. Operative findings:: Healing proximal humerus fracture as noted on the preoperative x-rays. Intra-articular penetration of at least 2 out of the 3 proximal locking screws was again noted under fluoroscopic screening. Couple of the screws were difficult to remove as they were buried below the cortex/under the callus. The removal required making a small cortical window and removal of the callus over the screw head. These were subsequently filled with cancellous bone graft. Operative note:: On the day of surgery patient/family were met in the preoperative area and positively identified. I have again reviewed the diagnosis, natural history and management options in detail including both nonsurgical and surgical. As the proximal locking screws are penetrating intra-articularly, I have again recommended removal of the screws to prevent any damage to the articular surface and other structures around the shoulder. I have discussed the details of the procedure, risks and benefits and alternatives. The complications discussed include but are not limited to infection, bleeding, injury to nerves and blood vessels, injury to tendons, skin breakdown and non healing wound, stiffness, DVT and PE, rib fracture, incomplete relief of pain, incomplete return of function, and likely need for further surgery in future and also the risks of anesthesia including heart attack, stroke, and even . I have discussed how there is a small but real possibility of loss of use of the limb, loss of the limb or loss of life itself. I have also explained how additional surgery may be required if there are any complications, development of avascular necrosis or arthritis. We've also discussed the option of nonsurgical treatment but not recommended. The patient understands and has asked appropriate questions. All her questions were answered, and she verbalized a good understanding. She desires to proceed with the proposed surgery in the form of removal of proximal locking screws from her left humerus. A physical examination was performed and documented. The limb was marked, and the consent form was reviewed. Patient understood the risks, agreed to proceed with surgery, and no guarantees or assurances were given or implied. The patient was brought to the operating room, a general anesthesia was administered by the syrup machine laborer. Prior to that she also had an interscalene nerve block in the preoperative area, administered by the syrup machine laborer. She was placed in a well-padded beach chair position. The C-arm was brought from the top and the proximal humerus was screened under fluoroscopic guidance in multiple planes. The fracture is noted to be healing well and intra-articular screw penetration appreciated as was seen in the preoperative x-rays. The LEFT upper extremity was then preppe
== END 2021-09-06 16:35 | disposition home or self-care (01) ==
LOC: OR 09:48
PROVIDERS: PCP Internal Medicine Adolescent Medicine; Visit Provider Orthopaedic Surgery
PROC: (CPT 20680; principal; 2021-09-06 12:00)
DX: T84.191A Other mechanical complication of internal fixation device of left humerus, initial encounter (principal); Y83.1 Surgical operation with implant of artificial internal device as the cause of abnormal reaction of the patient, or of later complication, without mention of misadventure at the time of the procedure; Z79.899 Other long term (current) drug therapy; I10 Essential (primary) hypertension
CPT/HCPCS: 20680; 73060; 76000; 96374; J2405

== ENCOUNTER → 2021-09-25 13:12 | Outpatient (CLI) | payer MEDICARE, SELFPAY ==
--- NOTE | 2021-09-25 13:16 | XR_ITS ---
FINAL REPORT CLINICAL HISTORY: POST-OP COMPARISON: August 29, 2021 FINDINGS: LEFT SHOULDER Multiple views demonstrate postoperative changes from ORIF of the proximal humerus. There is increased callus formation at the fracture site. There are mild degenerative changes involving the glenohumeral and acromioclavicular joints. IMPRESSION: Postoperative change of the proximal humerus with evidence of healing. Reviewed, Interpreted and Dictated by Berry Myers III, MD Transcribed by Gorge Brito Authenticated by Berry Myers III, MD on 09/25/2021 02:47:39 PM [facility]
== END ==
PROVIDERS: PCP Internal Medicine Adolescent Medicine; Visit Provider Orthopaedic Surgery
DX: Z09 Encounter for follow-up examination after completed treatment for conditions other than malignant neoplasm (principal); S42.295D Other nondisplaced fracture of upper end of left humerus, subsequent encounter for fracture with routine healing
CPT/HCPCS: 73030

== ENCOUNTER 2021-10-30 10:00 | Outpatient (RCR) | payer MEDICARE, SELFPAY ==
--- NOTE | 2021-08-07 15:23 | HMH.OTOPEV ---
OT Inpatient Evaluation Rehab OT Outpatient Eval Start: 07/17/21 09:42 Freq: Status: Active Protocol: Document 07/17/21 09:43 [facility] (Rec: 07/17/21 09:58 ESTRELLITA [id number]) Electronically Signed By Lisa Ball OT 07/17/21 09:43 Outpatient Therapy Subjective History Subjective History 80 year old female referred to skilled OP OT services for closed reduction and intramedullary nailing, left proximal humerus fracture on 07/05/21. Patient will be 2 weeks out on July 19 2021 . Patient sustained a closed, comminuted and displaced proximal humerus fracture after sustaining a fall while walking up stairs. At baseline , patient is independent for all activities of daily living . She lives alone and does her own shopping and driving. 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 Type Ache Symptoms Relieved By Rest/Positioning,Ice,Brace/ Support Symptoms Aggravated By Physical Activity Prior Functional Limitations None Current Functional Limitations Reaching,Lifting,Driving, Sleeping,Recreation Activity Symptom Description Constant and Continuous Level of pain today (0-10) 3 Pain scale - at its best (0-10) 5 Pain scale - at its worst (0-10) 5 Shoulder/Elbow Eval Shoulder Objective Measurements Shoulder ROM Left Shoulder Abduction Active Range of 50 Motion (degrees) Shoulder Flexion Active Range of Motion 30 (degrees) Query Text: Shoulder External Rotation Active Range 5 of Motion (degrees) Shoulder Internal Rotation Active Range 40 of Motion (degrees) pain with active ROM shoulder exam left standard Shoulder MMT Shoulder Abduction Strength Grade 2+ Poor+ Shoulder Extension Strength Grade 2+ Poor+ Shoulder Flexion Strength Grade 2+ Poor+ Shoulder Horizontal Abduction Strength 2+ Poor+ Grade Shoulder Horizontal Adduction Strength 2+ Poor+ Grade Infraspinatus/Teres Minor Strength Grade 2+ Poor+ Shoulder External Rotation Strength 2+ Poor+ Grade Shoulder Internal Rotation Strength 2+ Poor+ Grade Elbow Objective Measurements Wrist/Hand Eval
--- NOTE | 2021-10-09 11:06 | HMH.RHREAS ---
Rehab Reassessment Rehab OP Re-assessment Start: 08/07/21 15:15 Freq: Status: Active Protocol: Document 10/09/21 11:02 ESTRELLITA (Rec: 10/09/21 11:05 ESTRELLITA [id number]) Electronically Signed By Lisa Ball, OT 10/09/21 11:02 Rehab Re-assessment Subjective Subjective I can tell my shoulder is moving better. Objective Objective Notes Patient is currently 13 weeks out this week from s/p closed reduction and intramedually nailing on left proximal humerus fracture. Patient had removal of proximal locking screws and bone grafting to the left shoulder on 09/06/21. Patient has continued OP OT services 2x/wk with focus on addressing L UE shoulder AROM , strengthening and decrease pain levels in order to return to PLOF. f/u with orth on November 06. Patient to continue OP OT skilled services 2x/wk for 4 weeks til ortho f/u. Assessment Progress Assessment Progressing as Expected Assessment Notes Evaluation on 07/17/21 5/10 pain at best 5/10 pain at worst L UE AROM shoulder abd: 50 flex: 30 er: 5 ir: 40 2+/5 shoulder strength R hand aircraft maintenance director: 30# L hand aircraft maintenance director: 18# Re-assessment on 09/11/21 0/10 pain at best 4/10 pain at worst L UE AROM shoulder abd: 50 flex: 30 er: 5 ir: 40 2+/5 shoulder strength R hand aircraft maintenance director: 30# L hand aircraft maintenance director: 20# Re-assessmnet on 10/09/21 0/10 pain at best 3/10 pain at worst L UE AROM shoulder abd: 65 flex: 60 er: 50 with 65 degree
== END 2021-11-27 10:36 | disposition home or self-care (01) ==
LOC: OT 10:00
PROVIDERS: PCP Internal Medicine Adolescent Medicine; Visit Provider Orthopaedic Surgery
DX: S42.295D Other nondisplaced fracture of upper end of left humerus, subsequent encounter for fracture with routine healing (principal); M79.622 Pain in left upper arm
CPT/HCPCS: 97010; 97014; 97035; 97110; 97140; 97164; 97165; 97530; G0283

== ENCOUNTER → 2021-11-20 09:14 | Outpatient (CLI) | payer MEDICARE, SELFPAY ==
--- NOTE | 2021-11-20 09:16 | XR_ITS ---
FINAL REPORT TECHNIQUE: Bone mineral density was calculated of the lumbar spine and hip. CLINICAL HISTORY: .s/p shoulder fx FINDINGS: Using L1-4, the bone mineral density of the spine is 1.057 g/cm2, corresponding to T-score of 0.1. Using the left hip, the bone mineral density of the femoral neck is 0.741 g/cm2, corresponding to a T-score of -1.6. NOTE: T-score: Standard deviation compared with peak bone mass of young adult mean. *Following the recommendations of the International Society of Bone densitometry, classification of hip BMD is based on the lower of two T-scores; total hip or femoral neck. IMPRESSION: Diminished bone mineral density of the lumbar spine and left hip consistent with osteopenia. FRAX 10 year fracture risk is 16% for major osteoporotic fracture. Reviewed, Interpreted and Dictated by Berry Myers III, MD Transcribed by Tamara Nichole Authenticated by Berry Myers III, MD on 11/20/2021 10:44:54 AM [facility]
--- NOTE | 2021-11-20 09:36 | XR_ITS ---
FINAL REPORT CLINICAL HISTORY: post-op FINDINGS: LEFT SHOULDER Three views demonstrate postoperative changes in the left humerus with and inter medullary marc present. There is deformity of the humeral head and neck. There are mild degenerative changes of the acromioclavicular and glenohumeral joints. There is a probable loose body at the inferior aspect of the glenohumeral joint measuring 6 mm. IMPRESSION: Postoperative and degenerative changes as described. Reviewed, Interpreted and Dictated by Berry Myers III, MD Transcribed by Tamara Nichole Authenticated by Berry Myers III, MD on 11/20/2021 10:44:[address] [facility]
== END ==
PROVIDERS: PCP Internal Medicine Adolescent Medicine; Visit Provider Internal Medicine Adolescent Medicine
DX: M25.512 Pain in left shoulder (principal); M85.80 Other specified disorders of bone density and structure, unspecified site
CPT/HCPCS: 73030; 77080

== ENCOUNTER → 2022-02-19 09:07 | Outpatient (CLI) | payer MEDICARE, SELFPAY ==
--- NOTE | 2022-02-19 09:32 | XR_ITS ---
FINAL REPORT CLINICAL HISTORY: shoulder pain COMPARISON: November 20, 2021 FINDINGS: LEFT SHOULDER: 3 views of the left shoulder were obtained. There is subacute to chronic fracture of the left humeral neck. There is evidence of interval healing with increased bone formation. Mild degenerative changes are present. IMPRESSION: Subacute to chronic humeral neck fracture with postoperative change and increased bone formation. Reviewed, Interpreted and Dictated by Berry Myers III, MD Transcribed by Gorge Brito Authenticated and . [facility]
== END ==
PROVIDERS: PCP Internal Medicine Adolescent Medicine; Visit Provider Orthopaedic Surgery
DX: S42.302A Unspecified fracture of shaft of humerus, left arm, initial encounter for closed fracture (principal)
CPT/HCPCS: 73030

== ENCOUNTER → 2022-10-07 10:48 | Outpatient (CLI) | payer MEDICARE, SELFPAY ==
--- NOTE | 2022-10-07 10:50 | MM_ITS ---
PROCEDURE INFORMATION: Exam: MG Bilateral Screening 3D Mammography Exam date and time: 10/07/2022 10:46 AM Age: 82 years old Clinical indication: Screening examination TECHNIQUE: Imaging protocol: Bilateral Screening tomosynthesis and 2D mammography including computer-aided detection (CAD) when performed.Limited assessment due to difficulty positioning the patient. COMPARISON: 1. MG MM DIG SCREENING MAMM BI W/CAD 01/29/2021 10:33 AM 2. MG MM DIG SCREENING MAMM BI W/CAD 09/23/2019 9:17 AM 3. MG GRACIE BILAT SCREENING 08/21/2017 8:16 AM FINDINGS: MAMMOGRAPHY: Breast composition: There are scattered areas of fibroglandular density. Mass: None. Architectural distortion: No new or suspicious architectural distortion. Calcifications: No new or suspicious calcifications are present Asymmetric density: No new or suspicious asymmetric density is present Skin thickening: None. Axillary adenopathy: None. IMPRESSION: No mammographic evidence of malignancy. Recommend annual screening mammography unless otherwise clinically indicated. ASSESSMENT: BI-RADS category 1: Negative
== END ==
PROVIDERS: PCP Internal Medicine Adolescent Medicine; Visit Provider Nurse Practitioner Family
DX: Z12.31 Encounter for screening mammogram for malignant neoplasm of breast (principal)
CPT/HCPCS: 77063; 77067

== ENCOUNTER → 2023-03-27 23:49 | Outpatient (CLI) | payer MEDICARE, SELFPAY ==
[2023-03-27 16:23] LABS: Basophils % 0.3 % (0.1-2.0); Eosinophils # 1.4 K/mm3 (0.0-0.4); Eosinophils % 18.4 % (0.1-12.0); Hematocrit 37.7 % (37.0-47.0); Hemoglobin 12.2 g/dL (12.2-16.2); Lymphocytes # 1.9 K/mm3 (0.7-4.5); Lymphocytes % 23.7 % (10-50); Mean Corpuscular HGB Conc 32.2 g/dL (31.8-35.4); Mean Platelet Volume 9.9 fl (7.4-10.4); Monocytes # 0.4 K/mm3 (0.1-1.0); Monocytes % 5.6 % (1.7-9.3); Neutrophils # 4.1 K/mm3 (1.8-7.8); Platelet Count 241 K/mm3 (142-424); Red Blood Count 4.05 M/mm3 (4.20-5.40); Red Cell Distribution Width 13.8 % (11.5-17.5); White Blood Count 7.8 K/mm3 (4.8-10.8)
[2023-03-27 16:29] LABS: Alanine Aminotransferase 15 U/L (12-78); Albumin/Globulin Ratio 0.9 (1.1-1.8); Alkaline Phosphatase 102 U/L (38-126); Anion Gap 12.9 mEq/L (5-15); Aspartate Amino Transferase 31 U/L (14-36); Bilirubin,Total 0.4 mg/dl (0.2-1.3); Blood Urea Nitrogen 14 mg/dl (7-17); Calcium 9.1 mg/dl (8.4-10.2); Carbon Dioxide 28 mmol/L (22.0-30.0); Chloride 99 mmol/L (98-107); Estimated Glomerular Filt Rate 96 ml/min (>60); GFR (African American) 116 ML/MIN (>60); Globulin 4.3 g/dL (1.3-3.2); Glucose 59 mg/dl (74-100); Potassium 4.9 mmoL/L (3.5-5.1); Sodium 135 mmol/L (136-145); Total Protein,Serum 8.3 g/dl (6.3-8.2)
[2023-03-27 16:45] LABS: Free T4 (Free Thyroxine) 1.02 ng/dl (0.78-2.19); T4 (Thyroxine) 8.2 ug/dl (5.53-11.0); Triiodothryronine (T3) Uptake 36 % (23.5-40.5)
[2023-03-27 16:58] LABS: Thyroid Stimulating Hormone 2.51 uIU/mL (0.465-4.68)
== END ==
PROVIDERS: PCP Nurse Practitioner Family; Visit Provider Nurse Practitioner Family
DX: I10 Essential (primary) hypertension (principal); F41.9 Anxiety disorder, unspecified; Z79.899 Other long term (current) drug therapy
CPT/HCPCS: 80053; 84436; 84439; 84443; 84479; 85025

== ENCOUNTER → 2023-06-18 17:02 | Outpatient (CLI) | payer MEDICARE, SELFPAY | PROVIDERS: PCP Nurse Practitioner Family; Visit Provider Nurse Practitioner Family | DX: R30.0 Dysuria (principal); B96.29 Other Escherichia coli [E. coli] as the cause of diseases classified elsewhere | CPT/HCPCS: 87086 ==

== ENCOUNTER 2023-09-29 21:33 | Outpatient (CLI) | payer MEDICARE, SELFPAY | END 2023-09-29 23:59 | LOC: LAB.DROPOF 21:33 | PROVIDERS: PCP Family Medicine; Visit Provider Family Medicine | DX: R30.0 Dysuria (principal) | CPT/HCPCS: 87086 ==

== ENCOUNTER 2023-10-03 09:06 | Outpatient (CLI) | payer MEDICARE, SELFPAY ==
--- NOTE | 2023-10-03 09:06 | CT_ITS ---
FINAL REPORT CLINICAL HISTORY: vertigo COMPARISON: None FINDINGS: Axial images of the head were obtained without contrast. Coronal and sagittal reformatted images were also obtained.This study was performed with techniques to keep radiation doses as low as reasonably achievable (ALARA). Individualized dose reduction techniques using automated exposure control or adjustment of mA and/or kV according to the patient's size were employed. There is no evidence of intracranial hemorrhage or mass. The ventricular size is within normal limits. There is no evidence of shift of the midline structures. No abnormal extra axial fluid collection is identified. There is a localized bony prominence of the left convexity inner table. There is mild mucosal thickening in the right maxillary sinus. IMPRESSION: No acute intracranial abnormality. Reviewed, Interpreted and Dictated by Berry Myers III, MD Transcribed by Rena Galvan Authenticated and [facility]
== END 2023-10-03 23:59 ==
PROVIDERS: PCP Family Medicine; Visit Provider Nurse Practitioner
DX: J32.9 Chronic sinusitis, unspecified (principal); R42 Dizziness and giddiness
CPT/HCPCS: 70450

== ENCOUNTER 2023-10-06 10:55 | Outpatient (POV) | payer MEDICARE, SELFPAY | END 2023-10-06 23:59 | disposition home or self-care (01) | LOC: SC 10:56 | PROVIDERS: Visit Provider Specialist/Technologist | DX: Z00.00 Encounter for general adult medical examination without abnormal findings (principal) ==

== ENCOUNTER 2023-12-15 12:26 | Outpatient (CLI) | payer MEDICARE, SELFPAY ==
--- NOTE | 2023-12-15 12:30 | MM_ITS ---
PROCEDURE INFORMATION: Exam: MG Bilateral Screening 3D Mammography Exam date and time: 12/15/2023 12:46 PM Age: 83 years old Clinical indication: Screening examination TECHNIQUE: Imaging protocol: Bilateral Screening tomosynthesis and 2D mammography including computer-aided detection (CAD) when performed. COMPARISON: 1. MG MM DIG SCREENING MAMM BI W/CAD 10/07/2022 10:46 AM 2. MG MM DIG SCREENING MAMM BI W/CAD 01/29/2021 10:33 AM FINDINGS: MAMMOGRAPHY: Breast composition: The breasts are heterogeneously dense, which may obscure small masses. Mass: None. Architectural distortion: None. Calcifications: No suspicious calcifications. Asymmetric density: None. Skin thickening: None. Axillary adenopathy: None. IMPRESSION: No mammographic evidence of malignancy. Annual screening is recommended unless otherwise clinically indicated. ASSESSMENT: BI-RADS Category 1: Negative
== END 2023-12-15 23:59 | disposition home or self-care (01) ==
LOC: RAD 12:27
PROVIDERS: PCP Family Medicine; Visit Provider Family Medicine
DX: Z12.31 Encounter for screening mammogram for malignant neoplasm of breast (principal)
CPT/HCPCS: 77063; 77067

== ENCOUNTER 2024-01-08 13:40 | Outpatient (CLI) | payer MEDICARE, SELFPAY ==
[2024-01-08 13:47] VITALS: BMI 22.0
[2024-01-08 14:05] VITALS: BP 145/69; PULSE 70; RESP 18; O2SAT 98
[2024-01-08] MEDS: 0.9 % SODIUM CHLORIDE 1000ML 1,000 ML 999 ML IV (14:05)
[2024-01-08 14:07] LABS: Basophils # 0.1 K/mm3 (0-0.2); Basophils % 0.9 % (0.1-2.0); Eosinophils # 0.8 K/mm3 (0.0-0.4); Hematocrit 39.3 % (37.0-47.0); Hemoglobin 12.8 g/dL (12.2-16.2); Lymphocytes # 1.7 K/mm3 (0.7-4.5); Lymphocytes % 27.3 % (10-50); Mean Corpuscular HGB Conc 32.7 g/dL (31.8-35.4); Mean Corpuscular Volume 97.9 fl (81-99); Mean Platelet Volume 8.3 fl (7.4-10.4); Monocytes # 0.3 K/mm3 (0.1-1.0); Monocytes % 5.3 % (1.7-9.3); Neutrophils # 3.4 K/mm3 (1.8-7.8); Neutrophils % 54.4 % (37.0-80.0); Platelet Count 198 K/mm3 (142-424); Red Blood Count 4.01 M/mm3 (4.20-5.40); White Blood Count 6.3 K/mm3 (4.8-10.8)
[2024-01-08 14:14] LABS: Anion Gap 12.3 mEq/L (5-15); Blood Urea Nitrogen 15 mg/dl (7-17); Carbon Dioxide 26 mmol/L (22.0-30.0); Chloride 100 mmol/L (98-107); Creatinine Clearance Estimated 46 mL/min (50-200); Estimated Glomerular Filt Rate 96 ml/min (>60); GFR (African American) 116 ML/MIN (>60); Glucose 93 mg/dl (74-100); Potassium 4.3 mmoL/L (3.5-5.1); Sodium 134 mmol/L (136-145)
[2024-01-08 15:09] VITALS: BP 132/71; PULSE 71; O2SAT 98
[2024-01-08 15:21] LABS: Vitamin B12 910 pg/mL (239-931)
[2024-01-08 15:22] LABS: Folate 8.46 ng/mL
== END 2024-01-08 15:13 | disposition home or self-care (01) ==
LOC: INF 13:41
PROVIDERS: Nurse Practitioner Family; PCP Family Medicine; Visit Provider Family Medicine
DX: R53.1 Weakness (principal); E86.0 Dehydration; R71.8 Other abnormality of red blood cells
CPT/HCPCS: 80048; 82607; 82746; 85025; 96360

== ENCOUNTER 2024-02-22 09:17 | Emergency (ER) | payer MEDICARE, SELFPAY ==
[2024-02-22] VITALS (8 sets, daily range): BP systolic 134–169; BP diastolic 56–98; PULSE 65–72; RESP 16–21; TEMP 36.6; O2SAT 97–100; BMI 21.2
--- NOTE | 2024-02-22 09:21 | HMH.EDGENADL ---
Discharge Plan Disposition Patient Disposition: Home, Self-Care Condition: Good Prescriptions Prescriptions: No Action metoprolol tartrate 25 mg tablet 25 mg PO BID Qty: 180 3RF triamcinolone acetonide 0.1 % ointment 1 applic topical BID Qty: 30 1RF calcium carbonate-vitamin D3 [Calcium with Vitamin D] 600 mg-10 mcg (400 unit) tablet 1 tab PO DAILY psyllium husk [Metamucil] 0.4 gram capsule 0.4 g PO DAILY cyanocobalamin (vitamin B-12) 2,500 mcg tablet 2,500 mcg PO DAILY amlodipine 5 mg tablet 5 mg PO DAILY Qty: 90 2RF azelastine 137 mcg (0.1 %) aerosol,spray 1 spray intranasal BID Qty: 30 3RF Rx Instructions: administer into each nostril simethicone [Gas-X Extra Strength] 125 mg capsule 125 mg PO QD-BID PRN enalapril maleate 20 mg tablet 20 mg PO DAILY Qty: 90 2RF levocetirizine [Xyzal] 5 mg tablet 5 mg PO HS PRN (Reason: allergy symptoms) 90 Days Qty: 90 0RF buspirone 5 mg tablet 5 mg PO BID 90 Days Qty: 180 0RF albuterol sulfate 90 mcg/actuation HFA aerosol inhaler 1 inh inhalation QID PRN (Reason: shortness of breath or wheezing) Qty: 6.7 2RF ascorbic acid-ascorbate sodium 500 MG tablet,chewable 500 mg PO DAILY aspirin 81 MG tablet,chewable 81 mg PO DAILY Referrals Follow up/Referrals: Bebeto Prater MD [Primary Care Provider] - See instructions Tima Quintana MD [Staff Physician] - See instructions Activity Restrictions/Add. Instructions Additional Instructions/Restrictions: As we discussed, I recommend you decrease the metoprolol from 25 mg twice daily to 12 mg twice daily, please monitor your blood pressure and follow-up closely with your primary care provider. A blood pressure less than 155 top number is within the tolerated range for your age group. I placed a referral to cardiology for further management of your PVCs. Please return with any new or worsening symptoms. Clinical Impressions Clinical Impression: Symptomatic bradycardia, Frequent PVCs Discharge ED Provider: Rolando Aldana Adult HPI General Chief complaint: Arrhythmia/Palpitations Stated complaint: low pulse Time Seen by Provider: 02/22/24 09:21 History of Present Illness HPI narrative: The patient presents with a chief complaint of fluctuating pulse, which she first noticed yesterday but has been experiencing on and off for the past few months. The patient reports feeling fine in the morning, but after taking her medications, she feels wiped out. The patient's symptoms improve by 1 PM, allowing her to perform housework. She has not experienced any episodes of syncope but reports feeling shaky and having shaky legs during these episodes. The patient is currently taking propranolol, amlodipine, enalapril, acetophilus, biotin, Pepcid, and aspirin, among other medications. She has been on enalapril since 2000 and propranolol for approximately six or seven years. There have been no recent changes in her medications. The patient has informed her primary care doctor about her symptoms but has not seen a [place]. She has a history of high blood pressure but reports no known heart conditions. She has experienced weight loss, dropping from 185 lbs to 140 lbs, due to difficulty swallowing and the passing of her spouse. The patient's blood pressure has been running in the 130s systolic at home. Please note that above description of symptoms, in this electronic medical record under categorization of recalled from ER triage doctor by RN are reflective of an initial nursing assessment, however, is not reflective of my full history and physical exam that was personally taken and clarified. Consequentially, this preceding description of symptoms, which may include the patient's categorized chief complaint in the EMR, do not reflect my personal clinical impression, and the ultimate description of history of present illness and patient stated complaints should be deferred to this section of the note. Unless stated otherwise or congruent with this section of the note, additional signs, symptoms, or incongruence should be interpreted as inaccurate with my clinical impression. Related Data Home Medications Medication Instructions Recorded Confirmed aspirin 81 mg chewable tablet 81 mg PO DAILY heart health 07/04/21 02/04/24 ascorbic acid-ascorbate sodium 500 mg PO DAILY vitamin 09/05/21 02/04/24 (vitamin C) 500 mg chewable tablet calcium carbonate 600 mg-vitamin 1 tab PO DAILY 03/27/23 02/04/24 D3 10 mcg (400 unit) tablet (Calcium with Vitamin D) cyanocobalamin (vitamin B-12) 2,500 mcg PO DAILY 03/27/23 02/04/24 2,500 mcg tablet psyllium husk 0.4 gram capsule 0.4 g PO DAILY 03/27/23 02/04/24 (Metamucil) simethicone 125 mg capsule (Gas-X 125 mg PO QD-BID PRN 09/29/23 02/04/24 Extra Strength) Previous Rx's Medication Instructions Recorded metoprolol tartrate 25 mg tablet 25 mg PO BID High blood pressure 06/18/23 #180 tabs amlodipine 5 mg tablet 5 mg PO DAILY HTN #90 tabs 07/14/23 azelastine 137 mcg (0.1 %) nasal 1 spray intranasal BID #30 mL 09/18/23 spray enalapril maleate 20 mg tablet 20 mg PO DAILY HTN #90 tabs 10/08/23 levocetirizine 5 mg tablet (Xyzal) 5 mg PO HS PRN allergy symptoms 90 11/17/23 days #90 tabs buspirone 5 mg tablet 5 mg PO BID 90 days #180 tabs 12/08/23 triamcinolone acetonide 0.1 % 1 applic topical BID #30 grams 01/02/24 topical ointment albuterol sulfate 90 mcg/actuation 1 inh inhalation QID PRN shortness 02/11/24 aerosol inhaler of breath or wheezing #6.7 grams Allergies Allergy/AdvReac Type Severity Reaction Status Date / Time levofloxacin [From Levaquin] Allergy Severe Headache Verified 02/04/24 11:25 ciprofloxacin [From CIPRO] Allergy Unknown Verified 02/04/24 11:25 estrogens, conjugated Allergy Unknown Verified 02/04/24 11:25 [From PREMPRO] ibuprofen [From MOTRIN] Allergy Unknown Verified 02/04/24 11:25 medroxyprogesterone Allergy Unknown Verified 02/04/24 11:25 [From PREMPRO] nebivolol [From BYSTOLIC] Allergy Unknown Verified 02/04/24 11:25 oxybutynin [From DITROPAN] Allergy Unknown Verified 02/04/24 11:25 phenazopyridine Allergy Unknown Verified 02/04/24 11:25 [From PYRIDIUM] Sulfa (Sulfonamide Allergy Unknown Verified 02/04/24 11:25 Antibiotics) [SULFA (SULFONAMIDE ANTIBIOTICS)] tolterodine [From DETROL] Allergy Unknown Verified 02/04/24 11:25 doxycycline Allergy Verified 02/04/24 11:25 hydrochlorothiazide Allergy Verified 02/04/24 11:25 [facility] Disclaimer: The information contained in this section may have been updated after the patient was seen, as this information can be updated by other users. Medical History (Updated 02/22/24 @ 13:44 by Rolando Aldana MD) History of impacted cerumen SNHL (sensorineural hearing loss) BPV (benign positional vertigo) Vertigo Lesion of left ear Otalgia, left ear Anxiety Arthritis Sinusitis Dysphagia Comminuted left humeral fracture Need for Tdap vaccination Avulsion of skin of right forearm Right elbow pain Right forearm pain Contusion of right knee Fall Surgical History History of colon resection H/O tubal ligation History of cholecystectomy History of tonsillectomy Social History Smoking Status: Never smoker alcohol intake: never substance use type: denies use current occupational status: retired Travel in the last 8 weeks: None household members: none housing: house caffeine: Yes ROS Obtained: Yes other As per HPI Physical Exam General General appearance: alert and in no apparent distress Head Head exam: atraumatic and normocephalic Eye Eye exam: Present normal appearance Neck Neck exam: Present normal inspection Chest Chest inspection: Present normal inspection and symmetric chest wall rise Respiratory Respiratory exam: Present normal lung sounds bilaterally; Absent respiratory distress Cardiovascular Cardiovascular exam: Present other (frequent PVCs, normal rate) Abdominal Exam Abdominal exam: Present soft; Absent distention or tenderness Neurological Exam Neurological exam: Present alert and oriented X3 Psychiatric Psychiatric exam: Present normal affect and normal mood Skin Skin exam: Present warm and dry Medical Decision Making Medical Records Medical records reviewed: Yes I reviewed the patient's medical records. Pradip Inquiry Pt receiving controlled substance: No Vital Signs: 02/22/24 09:18 02/22/24 09:31 02/22/24 10:01 Temperature 97.8 F Temperature Source Oral Pulse Rate 65 66 Pulse Rate [Right] 71 Respiratory Rate 16 17 18 Blood Pressure 149/63 H 159/98 H Blood Pressure [Right Arm] 166/81 H Blood Pressure Mean [Right Arm] 109 02 Sat by Pulse Oximetry 97 97 97 Oxygen Delivery Method Room Air Room Air 02/22/24 10:35 02/22/24 11:01 02/22/24 11:30 Temperature Temperature Source Pulse Rate 71 65 72 Pulse Rate [Right] Respiratory Rate Blood Pressure 169/75 H 138/57 L 134/60 Blood Pressure [Right Arm] Blood Pressure Mean [Right Arm] 02 Sat by Pulse Oximetry 97 98 100 Oxygen Delivery Method 02/22/24 12:30 02/22/24 13:46 Temperature 97.8 F Temperature Source Oral Pulse Rate 65 65 Pulse Rate [Right] Respiratory Rate 21 17 Blood Pressure 137/56 L 137/56 L Blood Pressure [Right Arm] Blood Pressure Mean [Right Arm] 02 Sat by Pulse Oximetry 98 Oxygen Delivery Method Room Air Lab Data Lab Results 02/22/24 10:10: WBC 6.0, RBC 4.30, Hgb 13.5, Hct 42.2, MCV 98.4, MCH 31.5 H, MCHC 32.0, RDW 13.9, Plt Count 237, MPV 8.3, Neut % (Auto) 68.6, Lymph % (Auto) 21.1, [place] % (Auto) 5.6, Eos % (Auto) 4.2, Baso % (Auto) 0.5, Neut # (Auto) 4.1, Lymph # (Auto) 1.3, [place] # (Auto) 0.3, Eos # (Auto) 0.3, Baso # (Auto) 0.0, Sodium 132 L, Potassium 4.2, Chloride 100, Carbon Dioxide 29, Anion Gap 7.2, BUN 14, Creatinine 0.60, Estimated Creat Clear 44, Estimated GFR 96, Est GFR ( Amer) 116, Glucose 101 H, Calcium 9.2, Phosphorus 3.9, Magnesium 1.9, Total Bilirubin 0.5, AST 41 H, ALT 27, Alkaline Phosphatase 66, Troponin I < 0.01, Total Protein 8.3 H, Albumin 4.2, Globulin 4.1 H, Albumin/Globulin Ratio 1.0 L, TSH 2.82, Free T4 1.30 02/22/24 10:42: Urine Color Yellow, Urine Appearance Clear, Urine pH 7.0, Ur Specific [place] 1.010, Urine Protein Negative, Urine Glucose (UA) Negative, Urine Ketones Negative, Urine Blood Negative, Urine Nitrate Negative, Urine Bilirubin Negative, Urine Urobilinogen 0.2, Ur Leukocyte Esterase Negative, Urine WBC 3-5, Ur Squamous Epith Cells 3-5, Urine Bacteria Trace 02/22/24 12:53: Troponin I < 0.01 02/22/24 10:10 02/22/24 10:10 Orders (Tests/Meds): ED MEDICATIONS Discontinued Medications Generic Name Dose Route Start Last Admin Trade Name Freq PRN Reason Stop Dose Admin Lactated Ringer's 1,000 mls @ 999 mls/hr 02/22/24 10:27 02/22/24 10:44 Lactated Ringer's 1000 Ml Bag IV 02/22/24 11:27 999 mls/hr .Q1H1M ONE Administration ORDERS Category Date Time Status CBC w/Auto Diff [Complete Blood Count Auto Diff] Stat Lab 02/22/24 10:10 Completed CMP [Comprehensive Metabolic Panel] Stat Lab 02/22/24 10:10 Completed Free T4 (Free Thyroxine) Stat Lab 02/22/24 10:10 Completed MAG [Magnesium] Stat Lab 02/22/24 10:10 Completed PHOS [Phosphorous] Stat Lab 02/22/24 10:10 Completed TSH [Thyroid Stimulating Hormone] Stat Lab 02/22/24 10:10 Completed Troponin I Q3H Lab 02/22/24 10:10 Completed Troponin I Q3H Lab 02/22/24 12:53 Completed Urinalysis and Microscopic Stat Lab 02/22/24 10:42 Completed Urine Culture Stat Micro 02/22/24 10:42 Received Medical Decision Narrative: Patient with history and exam per above presenting for evaluation of generalized weakness, bradycardia Diagnoses considered include arrhythmia, ACS, hypovolemia, symptomatic bradycardia, symptomatic hypotension, among others ED workup and treatment included: ED MEDICATIONS Discontinued Medications Generic Name Dose Route Start Last Admin Trade Name Freq PRN Reason Stop Dose Admin Lactated Ringer's 1,000 mls @ 999 mls/hr 02/22/24 10:27 02/22/24 10:44 Lactated Ringer's 1000 Ml Bag IV 02/22/24 11:27 999 mls/hr .Q1H1M ONE Administration ORDERS Category Date Time Status CBC w/Auto Diff [Complete Blood Count Auto Diff] Stat Lab 02/22/24 10:10 Completed CMP [Comprehensive Metabolic Panel] Stat Lab 02/22/24 10:10 Completed Free T4 (Free Thyroxine) Stat Lab 02/22/24 10:10 Completed MAG [Magnesium] Stat Lab 02/22/24 10:10 Completed PHOS [Phosphorous] Stat Lab 02/22/24 10:10 Completed TSH [Thyroid Stimulating Hormone] Stat Lab 02/22/24 10:10 Completed Troponin I Q3H Lab 02/22/24 10:10 Completed Troponin I Q3H Lab 02/22/24 12:53 Completed Urinalysis and Microscopic Stat Lab 02/22/24 10:42 Completed Urine Culture Stat Micro 02/22/24 10:42 Received Labs were independently interpreted by me, significant for no acute findings, thyroid studies within normal limits, troponins within normal limits x 2 Patient's EKG was independently visualized and interpreted by me significant for sinus bradycardia, PVCs, no acute ST changes Patient reported improvement of symptoms upon repeat evaluation after administration of IV fluid, monitor and storage bin tender shows sinus rhythm, regular rate. I suspect her symptoms, given strong correlation with morning medications, are attributable to symptomatic bradycardia. This occurs in the setting of recent weight loss and normal blood pressures at home. She has previously tolerated lower dose of beta-beatris, 12.5 mg of metoprolol twice daily, I recommend, until bridged outpatient management, she decreased the dose of her beta-beatris and return with any new or worsening symptoms. I discussed my clinical impression with patient and answered all questions. At this time, the evidence for any other entities in the differential is insufficient to warrant any further testing or ED observation. This was explained to the patient. The patient was advised that persistent or worsening symptoms require further evaluation. I confirmed the patient's understanding of this discussion. Critical Care Critical Care Time Critical Care Time: No
--- NOTE | 2024-02-22 09:25 | ECG_ITS ---
APPROVED REPORT Exam: Resting ECG HR:71 bpm ECG Measurements Heart Rate 71 AXES CO 152 P 86 QRSd 89 QRS 84 QT 381 T 65 QTc 403 Conclusion SINUS RHYTHM WITH FREQUENT VENTRICULAR PREMATURE COMPLEXES ABNORMAL RHYTHM ECG Electronically signed by : BRITNEY ZUNIGA, 02/22/2024 23:27:10
[2024-02-22 10:22] LABS: Basophils % 0.5 % (0.1-2.0); Eosinophils # 0.3 K/mm3 (0.0-0.4); Eosinophils % 4.2 % (0.1-12.0); Hematocrit 42.2 % (37.0-47.0); Hemoglobin 13.5 g/dL (12.2-16.2); Lymphocytes # 1.3 K/mm3 (0.7-4.5); Lymphocytes % 21.1 % (10-50); Mean Corpuscular Hemoglobin 31.5 pg (27.0-31.2); Mean Corpuscular Volume 98.4 fl (81-99); Mean Platelet Volume 8.3 fl (7.4-10.4); Monocytes # 0.3 K/mm3 (0.1-1.0); Monocytes % 5.6 % (1.7-9.3); Neutrophils # 4.1 K/mm3 (1.8-7.8); Neutrophils % 68.6 % (37.0-80.0); Platelet Count 237 K/mm3 (142-424); Red Cell Distribution Width 13.9 % (11.5-17.5)
[2024-02-22 10:35] LABS: Alanine Aminotransferase 27 U/L (12-78); Albumin Level 4.2 g/dl (3.5-5.0); Alkaline Phosphatase 66 U/L (38-126); Anion Gap 7.2 mEq/L (5-15); Aspartate Amino Transferase 41 U/L (14-36); Bilirubin,Total 0.5 mg/dl (0.2-1.3); Blood Urea Nitrogen 14 mg/dl (7-17); Calcium 9.2 mg/dl (8.4-10.2); Carbon Dioxide 29 mmol/L (22.0-30.0); Chloride 100 mmol/L (98-107); Creatinine Clearance Estimated 44 mL/min (50-200); Estimated Glomerular Filt Rate 96 ml/min (>60); GFR (African American) 116 ML/MIN (>60); Globulin 4.1 g/dL (1.3-3.2); Glucose 101 mg/dl (74-100); Magnesium 1.9 mg/dl (1.6-2.3); Phosphorous 3.9 mg/dl (2.5-4.5); Potassium 4.2 mmoL/L (3.5-5.1); Sodium 132 mmol/L (136-145); Total Protein,Serum 8.3 g/dl (6.3-8.2)
[2024-02-22] MEDS: LACTATED RINGERS 1000ML 1,000 ML 999 ML IV (10:44)
[2024-02-22 10:48] LABS: Microscopic, Urine URINE MICROSCOPIC (MICROSCOPIC)
[2024-02-22 10:53] LABS: Appearance,Urine CLEAR (Clear); Bilirubin,Urine Negative (Negative); Blood, Urine Negative (Negative); Color,Urine YELLOW (Yellow); Glucose,Urine (UA) Negative (Negative); Ketones,Urine Negative (Negative); Leukocyte Esterase,Urine Negative (Negative); Nitrate,Urine Negative (Negative); Protein,Urine Negative (Negative); Urobilinogen,Urine 0.2 EU/dl (0.2)
[2024-02-22 11:06] LABS: Thyroid Stimulating Hormone 2.82 uIU/mL (0.465-4.68)
[2024-02-22 11:08] LABS: Troponin I < 0.01 ng/ml (0.00-0.034)
[2024-02-22 11:18] LABS: Bacteria,Urine Trace /lpf
[2024-02-22 13:34] LABS: Troponin I < 0.01 ng/ml (0.00-0.034)
--- NOTE | 2024-02-24 08:18 | PC.NURSE ---
no growth for final urine culture, ntd.
== END 2024-02-22 13:56 | disposition home or self-care (01) ==
PROVIDERS: Emergency Provider Emergency Medicine; PCP Family Medicine
DX: R00.1 Bradycardia, unspecified (principal); I49.3 Ventricular premature depolarization; E87.1 Hypo-osmolality and hyponatremia; I10 Essential (primary) hypertension
CPT/HCPCS: 80053; 81001; 83735; 84100; 84439; 84443; 84484; 85025; 87086; 93005; 96360; 99284; J7120

== ENCOUNTER 2024-02-26 15:20 | Outpatient (CLI) | payer MEDICARE, SELFPAY ==
[2024-02-26 15:57] LABS: Basophils % 0.6 % (0.1-2.0); Eosinophils # 0.3 K/mm3 (0.0-0.4); Eosinophils % 3.8 % (0.1-12.0); Hematocrit 38.8 % (37.0-47.0); Hemoglobin 12.8 g/dL (12.2-16.2); Lymphocytes % 28.1 % (10-50); Mean Corpuscular HGB Conc 32.9 g/dL (31.8-35.4); Mean Corpuscular Volume 97.1 fl (81-99); Mean Platelet Volume 8.7 fl (7.4-10.4); Monocytes # 0.4 K/mm3 (0.1-1.0); Monocytes % 5.5 % (1.7-9.3); Neutrophils # 4.5 K/mm3 (1.8-7.8); Platelet Count 243 K/mm3 (142-424); Red Blood Count 3.99 M/mm3 (4.20-5.40); Red Cell Distribution Width 14.1 % (11.5-17.5); White Blood Count 7.3 K/mm3 (4.8-10.8)
[2024-02-26 16:19] LABS: Alanine Aminotransferase 22 U/L (12-78); Albumin Level 4.3 g/dl (3.5-5.0); Alkaline Phosphatase 73 U/L (38-126); Anion Gap 9.1 mEq/L (5-15); Aspartate Amino Transferase 36 U/L (14-36); Bilirubin,Indirect 0.3 mg/dL (0.0-0.9); Bilirubin,Total 0.3 mg/dl (0.2-1.3); Bilirubin,Unconjugated 0.4 mg/dL (0.0-1.1); Blood Urea Nitrogen 12 mg/dl (7-17); Calcium 9.4 mg/dl (8.4-10.2); Carbon Dioxide 27 mmol/L (22.0-30.0); Chloride 101 mmol/L (98-107); Chol/HDL Ratio 3.1 (1-3.5); Cholesterol 169 mg/dl (140-200); Estimated Glomerular Filt Rate 118 ml/min (>60); GFR (African American) 143 ML/MIN (>60); Glucose 94 mg/dl (74-100); HDL Cholesterol 54 mg/dl (40-60); Potassium 4.1 mmoL/L (3.5-5.1); Sodium 133 mmol/L (136-145); Total Protein,Serum 8.1 g/dl (6.3-8.2); Triglycerides 143 mg/dl (30-150); VLDL Cholesterol 29 mg/dL (0-40)
[2024-02-26 16:29] LABS: Direct LDL Cholesterol 82.79 mg/dL (100-129)
[2024-02-26 16:36] LABS: Free T4 (Free Thyroxine) 1.04 ng/dl (0.78-2.19)
[2024-02-26 16:51] LABS: Thyroid Stimulating Hormone 2.24 uIU/mL (0.465-4.68)
== END 2024-02-26 23:59 | disposition home or self-care (01) ==
PROVIDERS: PCP Family Medicine; Visit Provider Nurse Practitioner
DX: R94.31 Abnormal electrocardiogram [ECG] [EKG] (principal); I10 Essential (primary) hypertension; E78.5 Hyperlipidemia, unspecified; R00.2 Palpitations
CPT/HCPCS: 36415; 80048; 80061; 80076; 84439; 84443; 85025; 93270

== ENCOUNTER 2024-03-02 10:29 | Outpatient (CLI) | payer MEDICARE, SELFPAY | END 2024-03-02 23:59 | disposition home or self-care (01) | LOC: LAB.DROPOF 03-03 10:30 | PROVIDERS: PCP Nurse Practitioner Family; Visit Provider Nurse Practitioner Family | DX: R30.0 Dysuria (principal) | CPT/HCPCS: 87086 ==

== ENCOUNTER 2024-03-03 13:30 | Outpatient (CLI) | payer MEDICARE, SELFPAY ==
--- NOTE | 2024-03-03 13:31 | CA_ITS ---
APPROVED REPORT EXAM: Comprehensive 2D, Doppler, and color-flow Echocardiogram [employer] Internship: Baylee Wood RVT Ht: 5 ft 8 in Wt: 143lbs BSA: 1.77 BP: 180/79 mmHg Indications: ABN EKG,HTN,BRADYCARDIA,FATIGUE 2D Dimensions LA Volume 36.50 mL LA Volume Index 20.62 mL/m2 (M/F) 16-34 M-Mode Dimensions RVDd 2.46 cm (0.9-2.6) LA Diam 3.66 cm (1.9-4.0) LVDd 4.92 cm (3.5-5.7) LVDs 3.60 cm (3.5-5.7) IVSd 0.76 cm (0.6-1.1) PWd 0.72 cm (0.6-1.1) EF (Teich) 52.20% FS 26.80% EDV (Teich) 113.90 mL TAPSE 2.65 (<1.7) ESV (Teich) 54.40 mL LV Diastology E Decel Time 220 (160-240 msec) E/A Ratio 1.2 Aortic Valve MIGUEL Index 1.89 cm2/m2 AoV Peak Mike. 93.0 (50-130 cm/s) AO Peak GR. 3.40 mmHg AO Mean GR. 2.00 (<5 mmHg) AO VTI 21.7 (18-25 cm) MIGUEL (VTI) 3.44 (2.5-4.5 cm2) Mitral Valve MV E Max Mike. 74.0 (40-130 cm/s) MV A Velocity 61.0 (40-130 cm/s) E/A Ratio 1.20 MV PHT 64.0 ms Pulmonary Valve PV Peak Velocity 56.0 (50-150 cm/s) Tricuspid Valve TR P. Velocity 295.00 cm/s RAP Estimate 10.00 mmHg RVSP 44.90 mmHg Left Ventricle The left ventricle is normal size. There is increased LV wall thickness. The left ventricular systolic function is mildly reduced. There is mild global hypokinesis present. The left ventricular diastolic function is normal. LVEF is 45%. Right Ventricle The right ventricle is mildly dilated. The right ventricular systolic function is normal. Atria Left atrium is mildly dilated. Right atrium is mildly dilated. There is no Doppler evidence of interatrial shunt. Aortic Valve The aortic valve is mildly thickened. There is no aortic valvular stenosis. No aortic regurgitation is present. Mitral Valve The mitral valve leaflets are mildly thickened. No evidence of mitral valve stenosis. Mild to moderate mitral regurgitation. Tricuspid Valve The tricuspid valve leaflets are thin and pliable. Mild tricuspid regurgitation. RVSP is 45-50 mmHg. Pulmonic Valve The pulmonary valve is normal in structure. Trace pulmonic regurgitation. Great Vessels The aortic root is normal in size. The ascending aorta is not well-visualized. IVC is normal in size, but collapses < 50% with respirophasic variation. RA pressure is estimated at 8 mmHg. Pericardium There is no pericardial effusion. Other Information Study Quality: Fair Conclusion Mildly reduced LV systolic function (LVEF 45%). Mild RV dilation with normal RV function. Mild biatrial dilation. Mild to moderate MR. Mild TR. Elevated RVSP 45-50 mmHg. Electronically signed by : Mariah Andrade MD 03/07/2024 21:57:46
== END 2024-03-03 23:59 | disposition home or self-care (01) ==
LOC: RT 13:31
PROVIDERS: PCP Family Medicine; Visit Provider Nurse Practitioner
DX: R94.31 Abnormal electrocardiogram [ECG] [EKG] (principal); R00.1 Bradycardia, unspecified; M54.2 Cervicalgia
CPT/HCPCS: 93306

== ENCOUNTER 2024-03-05 07:03 | Outpatient (CLI) | payer MEDICARE, SELFPAY ==
--- NOTE | 2024-03-05 | CA_ITS ---
APPROVED REPORT Exam: Exercise Treadmill Technologist: Michaelle Bolaños, Ht: 5 ft 8 in Wt: 143 lbs BSA: 1.77 m2 HR: 78 bpm BP: 175/76 mmHg Rhythm: NSR, frequent PVCs and V couplets, rightward axis, ST abns inferiorly and laterally Medical History Medications: Amlodipine,,,,, Aspirin,,,,, Metoprolol,,,,, Buspirone,,,,, Albuterol,,,,, Metamucil,,,,, AZelastine,,,,, EnALAPRIL Maleate,,,,, Cardiac Risk Factors: HTN Stress Test Details Test: Manual Treadmill HR Resting HR: 82 bpm Max Heart Rate (APMHR): 139 bpm Max HR Achieved: 149 bpm Target HR (85% APMHR): 118 bpm % of APMHR: 107 Recovery HR: 96 bpm HR response to stress: Normal HR response to stress BP Resting BP: 180.0/73.0 mmHg Max BP: 185.0/64.0 mmHg Recovery BP: 185.0/64.0 mmHg BP response to stress: Normal blood pressure response to stress. ECG Resting ECG: NSR, frequent PVCs and V couplets, rightward axis, ST abns inferiorly and laterally Stress EC.[address] depression Arrhythmia: Frequent PVCs, ventricular couplets and triplets Recovery ECG: Return to baseline within 3 minutes of recovery Recovery Arrhythmia: PVCs Clinical Exercise duration: 07:16 min Highest Stage Achieved: Exercise capacity: 6.3 METs Overall Exercise Capacity for Age: Average Stress ECG Conclusion Pt walked 7:16 minutes on stage 1 juan followed by manual mode. No CP noted. Ectopy: At least two multifocal vent triplets. Frequents PVCs and couplets. At least three 4 beat multifocal of VT. ST changes: 0.[address] depression Conclusion: Average exercise capacity. Frequent ectopy is noted at stress and during recovery Non diagnostic GXT due to baseline EKG abns. Myoview images reported separately. Test Summary REST . . . . . . . Sitting REST . . . . . . . Standing REST 08:50 0.0 0.0 82 . 180/ 73 . . Stage 1 01:00 10.0 1.7 91 . . . . Stage 1 02:00 10.0 1.7 103 . . . . Stage 1 . . . . . . . Stage held Stage 1 03:00 10.0 1.7 108 . 184/ 80 . . Stage 1 . . . . . . . Protocol changed to Manual Treadmill Stage 1 04:00 12.0 2.0 110 . 184/ 80 . . Stage 1 05:00 12.0 2.2 111 . 184/ 80 . . Stage 1 06:00 12.0 2.2 116 . 184/ 80 . . Stage 1 07:00 12.0 2.2 123 . 184/ 80 . . Stage 1 . . . . . . . Stage resumed Stage 1 07:16 12.0 2.2 121 . 184/ 80 . Stop exercise at 07:16 RECOVERY 01:00 0.0 0.0 109 . . . . RECOVERY 02:00 0.0 0.0 97 . . . . RECOVERY 03:00 0.0 0.0 88 . 185/ 64 . . RECOVERY 04:00 0.0 0.0 90 . 171/ 90 . . RECOVERY 05:00 0.0 0.0 80 . 183/ 76 . . RECOVERY 06:00 0.0 0.0 84 . 183/ 76 . . RECOVERY 07:00 0.0 0.0 82 . 174/ 77 . . RECOVERY 07:16 0.0 0.0 88 . 174/ 77 . . Electronically signed by : Mariah Andrade MD 03/08/2024 12:39:10
--- NOTE | 2024-03-05 07:14 | NM_ITS ---
APPROVED REPORT Exam: Nuclear Stress Test Indication: HTN, FM HX, DIZZINESS, ABN EKG, LOW HEART RATE Patient Location: Outpatient Stress Tech: Michaelle Bolaños [place] Tech:Jennifer Santana LOLISYury RT (R)(N)(M) Ht: 5 ft 8 in Wt: 140 lbs Bra Size: C HR: 82 bpm BP: 180/73 mmHg BSA: 1.76 m2 TID: 1.08 BMI: 21.2 History: HTN, FM HX, DIZZINESS, ABN EKG, LOW HEART RATE PT COULD NOT LAY ON ABDOMENFOR PRONE IMAGES Procedure: Patient exercised on Wayne protocol 7:16 minutes and sec, resting heart rate 82 bpm, resting blood pressure 180/73 mmHg, with exercise maximum heart rate achived was 149 bpm which is 107 % of the maximum predicted heart rate and blood pressure was 185/64 mmHg. Test was stopped due to FATIGUE. Patient has average exercise capacity, achieved 6.3 METs of workload on treadmill, the blood pressure response to exercise was normal. Cardiac Stress and Resting SPECT Images: Cardiac Stress and Resting SPECT images were obtained using technetium 99m Myoview 31.8 mCi stress and 10.38 mCi at rest. The patient could not lie on her abdomen. Therefore, prone stress imaging could not be performed. This may affect the diagnostic interpretation of the study findings. Resting and stress imaging in supine positions demonstrate no evidence of fixed or reversible perfusion defects. Gated imaging demonstrates low-normal global LV systolic function. LVEF is calculated at 50%. The LVEF may be inaccurate in the setting of frequent ectopy at the time of image acquisition. Conclusion: No evidence of fixed or reversible perfusion defects. Gated imaging demonstrates low-normal global LV systolic function. LVEF is calculated at 50%. The LVEF may be inaccurate in the setting of frequent ectopy at the time of image acquisition. Of note, the patient had frequent PVCs, as well as ventricular couplets and triplets, at the time of stress testing and during recovery. Electronically signed by : Mariah Andrade MD 03/08/2024 12:41:10
== END 2024-03-05 23:59 | disposition home or self-care (01) ==
LOC: RAD 07:04
PROVIDERS: PCP Family Medicine; Visit Provider Nurse Practitioner
DX: R94.31 Abnormal electrocardiogram [ECG] [EKG] (principal); R00.1 Bradycardia, unspecified; M54.2 Cervicalgia
CPT/HCPCS: 78452; 93017; 93018; A9502

== ENCOUNTER 2024-03-23 15:03 | Outpatient (CLI) | payer MEDICARE, SELFPAY | END 2024-03-23 23:59 | disposition home or self-care (01) | LOC: RT 15:04 | PROVIDERS: PCP Family Medicine; Visit Provider Nurse Practitioner | DX: I49.3 Ventricular premature depolarization (principal); I50.20 Unspecified systolic (congestive) heart failure | CPT/HCPCS: 93270 ==

== ENCOUNTER 2024-04-09 09:34 | Outpatient (CLI) | payer MEDICARE, SELFPAY ==
--- NOTE | 2024-04-09 09:34 | MR_ITS ---
APPROVED REPORT Manager Flight Operations: CLINICAL INDICATION PVCs TECHNIQUE Image Acquisition: Cardiac magnetic resonance (CMR) was performed on Siemens Espree MRI 1.5T scanner. Software platform sequences were performed using the Siemens [place] kongkong technology MR B19 platform. A set of three-plane, low-resolution, large [id number] localizers were initially acquired. Then axial, coronal, sagittal TrueFISP, as well as axial HASTE images, were obtained. These were followed by gated TrueFISP breathold cinematic sequences obtained in the short axis with 8 mm slices and 2 mm gaps, 2-chamber (vertical long axis), 3-chamber, 4-chamber (horizontal long axis). A bolus of contrast was injected intravenously with first-pass sequences obtained in the short axis and four-chamber planes. 2D-velocity phase mapping was performed. Functional parameters were calculated by offline analysis on an independent workstation (Equ[employer]ate Imaging Platform, [employer]). Contrast: ProHance??? (Gadoteridol) FINDINGS MORPHOLOGY AND FUNCTION Left ventricle: The left ventricle is normal in size. The indexed left ventricular end-diastolic volume (LVEDVi) is 86 ml/m2 (reference range 57-105 ml/m2 in males, 56-96 ml/m2 in females). Normal left ventricular systolic function is present. There is normal left ventricular wall thickness. There are no regional wall motion abnormalities noted. LVEF is calculated at 55.0% (reference range 57-77%). Right ventricle: The right ventricle is normal in size. The indexed right ventricular end-diastolic volume (RVEDVi) is 77 ml/m2 (reference range 61-121 ml/m2 in males, 48-112 ml/m2 in females). Normal right ventricular systolic function is present. RVEF is calculated at 56.4% (reference range 52-72% in males, 51-71% in females). Atria: The left atrium is dilated. The maximum indexed left atrial volume is 59 ml/m2 (reference range 26-52 ml/m2 in males, 27-53 ml/m2 in females). The right atrium is dilated. The maximum indexed right atrial volume is 43 ml/m2 (reference range 18-40 ml/m2). Aorta: The diameter of the aortic annulus is normal, measuring 26 mm (coronal view reference range 21-30 mm in males, 19-27 mm in females). The diameter of the aortic sinus is normal, measuring 33 mm (coronal view reference range 25-42 mm in males, 24-36 mm in females). The diameter of the sinotubular junction is normal, measuring 31 mm (coronal view reference range 18-32 mm in males, 18-28 mm in females). The diameters of the ascending and descending thoracic aorta are normal. Main pulmonary artery: The main pulmonary artery diameter is normal. Pericardium: The pericardial thickness is normal. The pericardial thickness measures 2.3 mm (normal < 4.0 mm). There is no pericardial effusion. VALVES Mild mitral regurgitation is noted. Systolic anterior motion of the mitral valve is not visualized. Ratio of pulmonary to systemic flow, Qp:Qs ratio could not be calculated due to technical error at the time of image acquisition. TISSUE CHARACTERIZATION Resting Perfusion: Normal myocardial blood flow at rest. No evidence of resting hypoperfusion. Myocardial Fibrosis and/or edema: Gadolinium kinetics cannot be evaluated in the study. Following contrast administration. The patient stated she had to use the restroom and could not wait. The patient declined continuing the exam thereafter. LGE data could not be obtained. OTHER No other significant findings are noted. However, this exam is focused on the cardiac structure and function. IMPRESSION Limited study in the setting of patient unable to continue exam to evaluate for LGE. Normal LV size with normal LV systolic function. LVEDVi= 86 ml/m2 and LVEF= 55.0%. Normal RV size with normal RV systolic function. RVEDVi= 77 ml/m2 and RVEF= 56.4%. Mild biatrial enlargement. Perfusion analysis demonstrates normal blood flow at rest with no evidence of resting hypoperfusion. Additional Gadolinium kinetics cannot be evaluated in the study. Following contrast administration. The patient stated she had to use the restroom and could not wait. The patient declined continuing the exam thereafter. LGE data could not be obtained. Ratio of pulmonary to systemic flow, Qp:Qs ratio could not be calculated due to technical error at the time of image acquisition. Overall, this CMR demonstrates normal biventricular size and systolic function. The study is limited in the setting of no LGE data (patient declined to continue study). COMPARISON None CRITICAL RESULT None COMMUNICATION The above findings were reported to the patient at the time of her routine outpatient clinic visit prior to dictation of this report. The findings of this cardiac MR were reviewed, reported, and signed by Winston Andrade MD (Acetylene Operator). Conclusion Electronically signed by : Mariah Andrade MD 05/17/2024 13:17:11
[2024-04-09 10:12] LABS: Blood Urea Nitrogen 8 mg/dl (7-17); Estimated Glomerular Filt Rate 96 ml/min (>60); GFR (African American) 116 ML/MIN (>60)
== END 2024-04-09 23:59 | disposition home or self-care (01) ==
LOC: RAD 09:34
PROVIDERS: PCP Family Medicine; Visit Provider Nurse Practitioner
DX: I49.3 Ventricular premature depolarization (principal)
CPT/HCPCS: 36415; 75561; 82565; 84520

== ENCOUNTER 2024-07-20 10:21 | Outpatient (CLI) | payer MEDICARE, SELFPAY ==
--- NOTE | 2024-07-20 10:28 | CA_ITS ---
APPROVED REPORT EXAM: Limited 2D Echocardiogram Shells Inspector: Jeanne Salvador RDCS Ht: 5 ft 8 in Wt: 144lbs BSA: 1.78 BP: 138/93 mmHg Indications: REASSESS EF,HTN EF 45% 03/10 M-Mode Dimensions RVDd 1.68 cm (0.9-2.6) LA Diam 2.63 cm (1.9-4.0) LVDd 4.96 cm (3.5-5.7) LVDs 3.74 cm (3.5-5.7) IVSd 0.72 cm (0.6-1.1) PWd 0.84 cm (0.6-1.1) EF (Teich) 48.70% FS 24.60% EDV (Teich) 116.10 mL ESV (Teich) 59.60 mL Other Information Study Quality: Fair Conclusion This is a limited TTE to evaluate for LV systolic function. Limited windows were obtained. The left ventricle is normal in size. There is increased LV wall thickness. There is low normal LV systolic function. LVEF is 50%. Electronically signed by : Mariah Andrade MD 07/20/2024 12:11:40
== END 2024-07-20 23:59 | disposition home or self-care (01) ==
LOC: RT 10:24
PROVIDERS: PCP Family Medicine; Visit Provider Nurse Practitioner
DX: I11.0 Hypertensive heart disease with heart failure (principal); I50.20 Unspecified systolic (congestive) heart failure; I49.3 Ventricular premature depolarization
CPT/HCPCS: 93308

== ENCOUNTER 2024-11-02 15:16 | Outpatient (CLI) | payer MEDICARE, SELFPAY ==
--- NOTE | 2024-11-02 15:22 | XR_ITS ---
FINAL REPORT CLINICAL HISTORY: Right hip and back pain after fall, tissue indention at top of right buttock COMPARISON: None FINDINGS: SACRUM AND COCCYX: AP and lateral views of the sacrum and coccyx were obtained. There is no prior exam for comparison. There is no acute fracture or other acute osseous abnormality. The SI joints are symmetric bilaterally, with mild degenerative change noted. The sacrococcygeal articulation appears within normal limits. No acute soft tissue abnormality is present. IMPRESSION: No acute bony abnormality is identified. Reviewed, Interpreted and Dictated by Markos Jacobsen MD Transcribed by Rena Galvan Authenticated and [facility]
--- NOTE | 2024-11-02 15:22 | XR_ITS ---
FINAL REPORT CLINICAL HISTORY: Right hip and back pain after fall, tissue indention at top of right buttock COMPARISON: None FINDINGS: RIGHT HIP Two views of the right hip with a single view of the pelvis demonstrate no acute fracture or dislocation. The joint spaces appear normal. The visualized bony structures are well aligned. No soft tissue abnormality is seen. IMPRESSION: No acute bony abnormality. Reviewed, Interpreted and Dictated by Markos Jacobsen MD Transcribed by Rena Galvan Authenticated and [facility]
--- NOTE | 2024-11-02 15:22 | XR_ITS ---
FINAL REPORT TECHNIQUE: 5 views CLINICAL HISTORY: Right hip and back pain after fall, tissue indention at top of right buttock COMPARISON: None FINDINGS: LUMBAR SPINE: 5 views of the lumbar spine were obtained. There is no fracture present. Moderate to severe degenerative disc disease is present as well as facet arthropathy. There is probable bony canal stenosis in the lower lumbar spine. IMPRESSION: Degenerative change as described with no acute process. Reviewed, Interpreted and Dictated by Markos Jacobsen MD Transcribed by Rena Galvan Authenticated and [facility]
== END 2024-11-02 23:59 | disposition home or self-care (01) ==
LOC: RAD 15:18
PROVIDERS: PCP Family Medicine; Visit Provider Nurse Practitioner Family
DX: M25.551 Pain in right hip (principal); M54.9 Dorsalgia, unspecified
CPT/HCPCS: 72110; 72220; 73502

== ENCOUNTER 2024-11-10 12:43 | Outpatient (RCR) | payer MEDICARE, SELFPAY ==
--- NOTE | 2024-11-10 14:04 | HMH.PTOPEV ---
PT Outpatient Evaluation Rehab PT Outpatient Evaluation Start: 11/10/24 12:48 Freq: Status: Active Protocol: Document 11/10/24 12:48 PDESERNOVA (Rec: 11/10/24 14:04 PDESEROUX [id number]) E-signed By Zhen Saeed, PT Outpatient Therapy Subjective History Subjective History Pt. is a 84 year old female who presents to [facility] Outpatient Physical Therapy Services in [place] for the outpatient initial evaluation this date( 11/10/24) w/ c/o sub-acute and constant R-sided lumbar/hip/ leg P!, TTP, and tissue indentation of traumatic onset after having a fall in August of this year. Pt. reports she slipped on ice and landed on her RLE hip and back region. Pt. reports, the back just stays sore. Pt. c/ o soreness across the lumbar spine chronically, however, states symptoms have worsened since the injury. Pt. c/o constant discomfort in the RLE hip radiating just below the gluteal fold, however, states discomfort can worsen to P! that can refer to the knee and ankle of the RLE. Pt. reports sitting for a duration of time in [employer] or car rides worsen to a P!. Pt. also reports having P! w/ riding the air dyn at [employer]. Pt. reports having some symptom relief w/ OTC Tylenol. Recent diagnostic imaging indicates degenerative changes per pt. report. Pt. denies having injections for current complaint. Current medications include Buspar, Metoprolol, Losartan, and Norvasc. PMH includes Tubal Ligation, Hypertension, LLE Sciatica, S/P colon resection, Osteoarthritis. New diagnosis of cancer in past 12 No months? Chief Complaint Pain,Stiff,Gives out/Unstable, Paresthesia,Weakness Symptom Type Ache,Throb,Sharp,Dull,Burning, Shooting Symptoms Relieved By Rest/Positioning,Ice,OTC Meds Symptoms Aggravated By Sitting,Bending/Stooping, Twisting,Lifting Prior Functional Limitations None Current Functional Limitations Housework,Driving,Sleeping, Sitting,Recreation Activity, Walking,Stairs,Bending/ Stooping Symptom Description Constant but Variable,Activity Dependent Level of pain today (0-10) 4 Pain scale - at its best (0-10) 3 Pain scale - at its worst (0-10) 6 Lumbopelvic Eval Posture Thoracic Spine Posture Standing Position Increased Kyphosis Lumbar Spine Posture Standing Position Flattened Assistive device Assistive Devices None / NA Gait Observation General Gait Pattern Observation Antalgic Gait,Decrease Weight Bear (R),Decrease Stride Lngth (L) Palapation tenderness right lumbar spinal tenderness Yes: L5/S1 buttock tenderness Yes: glute med./piriformis/ greater trochanter region Lumbar/Sacral Palpation Findings Tenderness,Trigger Point Lumbar/Sacral Palpation Overall Comment grade 4 +TT Accessory Movement L-spine Vertebrae Accessory Movements Central P/A Hurley,Right P/A that Elicit Symptoms Hurley L5 right S1 right Range of Motion Lumbar Spine Active Flexion Range of 41 Motion (degrees) Lumbar Spine Active Extension Range of 11 Motion (degrees) Left Lumbar Spine Lateral Flexion Active 11 Range of Motion (degrees) Right Lumbar Spine Lateral Flexion 8 Active Range of Motion (degrees) Lumbar Spine ROM Limitations Soft Tissue Tightness,Muscle Weakness,Muscle Tone,Pain Manual Muscle Test Right Knee Extension Strength Grade 4 Good Knee Flexion Strength Grade 4- Good- Hip Flexion Strength Grade 4- Good- Hip Abduction Strength Grade 3+ Fair+ Hip Adduction Strength Grade 4 Good Hip External Rotation Strength Grade 3+ Fair+ Hip Internal Rotation Strength Grade 4 Good Hip Extension Strength Grade 4- Good- Gluteus Dustin Strength Grade 4- Good- Extensor Hallucis Longus Strength Grade 4 Good Ankle Dorsiflexion Strength Grade 4 Good Gastronemius/Soleus Strength Grade 4 Good DTR Rt Patellar 2+ Lt Patellar 2+ Rt Gastroc/Soleus 0 Lt Gastroc/Soleus 0 Altered Sensation Right Comment vocalized light touch sensation symmetrical to LLE grossly Special Tests Lumbar Spine Screen Positive Hip Scouring (Quadrant) Test Positive Right Hip Zhen (СВЕТЛАНА) Test Positive Right Hip Piriformis Test Positive Right Sciatic Nerve Tension Test Positive Right Lumbar Long [place] Distraction Test/Manual Positive Traction Outpatient Therapy Assessment Impairments Problems/Impairmments Palpation Tenderness,Impaired Range of Motion,Impaired Strength,Impaired Endurance, Impaired Walking,Impaired Sitting,Impaired Driving, Impaired Household Care, Impaired Stair Climbing, Impaired Bending,Impaired Recreational Activities, Subjective C/O Pain,Impaired Self Care/Self Management Prognosis Rehab Potential Good Comment w/ HEP compliancy Clinical Impression Consistent with Diagnosis Yes Consistent with dorsalgia Additional details: Pt. exhibits s/s of R-sided lumbar radiculopathy and s/s of RLE hip osteoarthritis. Pt. also exhibits s/s of active myofascial trigger point referral patterns in the RLE lateral and posterior hip region. Short Term Goals Number of Weeks 2 Decreased Palpation Tenderness Yes: grade 1-2 +TTP Decrease Subjective C/O Pain Yes: worse:12/25 Patient to be Ind w/ HEP Yes Ingot Supervisor Goals Number of Weeks 4-6 Decreased Palpation Tenderness Yes: grade 1 +TTP Increase Range of Motion Yes: lumbar spine AROM WFL grossly w/o difficulty Increase Strength Yes: 4+ to 5/5 RLE hip MMT scores grossly Improve Transfers Yes: Pt. will be able to supine to sit w/o an increase in P! Increase Ability to Walk Yes Increase Ability to Sit Yes: Pt. will be able to sit in [employer] pe[employer] w/o an increase in symptomatic P! Increase Ability to Drive/Ride in Car Yes Improve Ability For Household Care Yes Improve Ability to Climb Stairs Yes Return to Recreational Activities Yes: Pt. will return to [employer] w/o increase in discomfort Improve Oswestry Score Yes Decrease Subjective C/O Pain Yes: worse:-09/27 Patient to be Ind w/ Advanced HEP Yes Outpatient Therapy Plan of Care Treatment Plan May Include Therapeutic Exercise Including Home Yes Exercise Program Manual Therapy Techniques Yes: lumbar spine distraction and mobilizations, RLE hip jt. distraction Neuromuscular Re-education Yes Therapeutic Activities to Return to Yes Previous Functional/Work Level Gait Training Yes ADL/Self Care Education Yes Mechanical Traction Yes Dry Needling Yes Thermal Modalities Yes Electrical Stimulation Yes Ultrasound/Phonophoresis Yes Iontophoresis Yes Vasopneumatic Compression Pump Yes Massage Yes Eval/Re-Eval Yes Frequency Times per week 2 Duration Number of Weeks 4-6 Addendums This patient is a candidate for social No or vocational rehab? Patient/Guardian verbally acknowledges Yes understanding of treatment program and consents to further treatment? Patient/Guardian verbally acknowledges Yes understanding of diagnosis, prognosis and goals for treatment? Eval Complexity PT Charges 87670 - Moderate Complexity Shoulder/Elbow Eval Shoulder Objective Measurements Elbow Objective Measurements PHYSICIAN CERTIFICATION: I certify the specified therapy services for Lilliam Tincher are required, authorized, and reviewed every 30 days.
== END 2024-11-10 23:59 | disposition home or self-care (01) ==
LOC: PT 12:43
PROVIDERS: PCP Family Medicine; Visit Provider Nurse Practitioner Family
DX: M25.551 Pain in right hip (principal); M54.50 Low back pain, unspecified
CPT/HCPCS: 97110; 97163

== ENCOUNTER 2024-11-15 13:58 | Outpatient (CLI) | payer MEDICARE, SELFPAY | END 2024-11-15 23:59 | disposition home or self-care (01) | LOC: LAB.DROPOF 11-16 13:25 | PROVIDERS: PCP Nurse Practitioner Family; Visit Provider Nurse Practitioner Family | DX: R10.30 Lower abdominal pain, unspecified (principal); R39.9 Unspecified symptoms and signs involving the genitourinary system | CPT/HCPCS: 87086 ==

== ENCOUNTER 2024-11-30 09:00 | Outpatient (RCR) | payer MEDICARE, SELFPAY | END 2024-11-30 23:59 | disposition home or self-care (01) | LOC: PT 09:00 | PROVIDERS: PCP Family Medicine; Visit Provider Nurse Practitioner Family | DX: M25.551 Pain in right hip (principal); M54.50 Low back pain, unspecified | CPT/HCPCS: 97110; 97140 ==

== ENCOUNTER 2024-12-28 12:49 | Outpatient (CLI) | payer MEDICARE, SELFPAY ==
--- NOTE | 2024-12-28 13:30 | MM_ITS ---
PROCEDURE INFORMATION: Exam: MG Bilateral Screening 3D Mammography Exam date and time: 12/28/2024 1:33 PM Age: 84 years old Clinical indication: Screening exam TECHNIQUE: Imaging protocol: Bilateral Screening tomosynthesis and 2D mammography including computer-aided detection (CAD) when performed. COMPARISON: 1. MG MM DIG SCREENING MAMM BI W/CAD 12/15/2023 12:46 PM 2. MG MM DIG SCREENING MAMM BI W/CAD 10/07/2022 10:46 AM FINDINGS: MAMMOGRAPHY: Breast composition: There are scattered areas of fibroglandular density. Mass: No suspicious masses. Architectural distortion: None. Calcifications: No suspicious calcifications. Asymmetric density: None. Skin thickening: None. Axillary adenopathy: None. IMPRESSION: No mammographic evidence of malignancy. Annual screening is recommended unless otherwise clinically indicated. ASSESSMENT: BI-RADS Category 1: Negative.
== END 2024-12-28 23:59 | disposition home or self-care (01) ==
LOC: RAD 12:51
PROVIDERS: PCP Family Medicine; Visit Provider Family Medicine
DX: Z12.31 Encounter for screening mammogram for malignant neoplasm of breast (principal); R92.323 Mammographic fibroglandular density, bilateral breasts
CPT/HCPCS: 77063; 77067

== ENCOUNTER 2025-03-28 08:52 | Outpatient (CLI) | payer MEDICARE, SELFPAY ==
--- OUTSIDE RECORDS SUMMARY | 2024-11-20 17:30 | XMS_ITS ---
Author Organization [facility] Address [address] [place] [address] Care Team Providers Care Information Systems Security Specialist Name Role Phone Ziggy Cunha Primary Care Provider Migration, Provider Unavailable Unavailable Allergies Allergen (clinical drug ingredient) Drug/Non Drug Allergy documented on EMR Reaction Allergy Type Onset Date Status DITROPAN (uncoded) Unknown Allergy A ctive LEVAQUIN (uncoded) dizziness Allergy A ctive PRIMPRO (uncoded) Unknown Allergy Ac tive ciprofloxacin Cipro Unknown Drug Allergy Active ibuprofen Motrin IB dizzy Drug Allergy Active tolterodine Detrol Unknown Drug Allergy Active Sulfamethoxazole Unknown Drug Allergy Active hydrochlorothiazide hydroCHLOROthiazide Unknown D rug Allergy Active doxycycline Doxycycline hives Drug Allergy Active phenazopyridine Pyridium Unknown Drug Allergy Active nebivolol Bystolic breathing Drug Allergy Active [facility] Conversion Encounter Medications Medication SIG (Take, Route, Frequency, Duration) Notes Start Date End Date Status Singulair 10 MG 1 tab(s) orally once a day (in the evening); Duration: 90 days 10/08/2021 Active Trelegy Ellipta 100 MCG-62.5 MCG-25 MCG/INH 1 PUFF(S) INHALED ONCE A DAY *Please review and pick correct strength-formulatio n from [facility] options. If intended option is not shown, discontinue and re-order from Quick Search* 02/06/2023 Active Nystatin 187725 UNIT/ML 5 ml orally 4 times a day; Duration: 7 days 01/23/2023 Active Metoprolol Tartrate 25 MG TAKE 1 TABLET 2 TIMES EACH DAY orally 2 times a day; Duration: 90 days Active busPIRone HCl 5 MG 1 tab(s) orally 2 times a day; Duration: 90 days 09/19/2022 Active Enalapril Maleate 20 MG 1 tab(s) orally once a day; Duration: 90 days Active Aspirin 81 MG 1 cap(s) orally daily Active Metamucil 400 MG 1 GUMMY ORALLY TWICE DIALY; Duration: 7 DAYS *Please review and pick correct strength-formulatio n from Dexmo options. If intended option is not shown, discontinue and re-order from Quick Search* Active Norvasc 2.5 MG 1 tab(s) orally once a day; Duration: 30 days 11/12/2022 Active B-12 2500 MCG 1 tab(s) sublingually once a day Active Calcium 600 + D 600 MG-5 MCG 1 TAB(S) ORALLY DAILY *Please review and pick correct strength-formulatio n from Dexmo options. If intended option is not shown, discontinue and re-order from Quick Search* Active Acidophilus - 1 cap(s) orally once a day Active Encounters Encounter Location Date Provider Diagnosis [facility] [address] [place] [address] 11/20/2024 Provider Migration Acute non-recurrent maxillary sinusitis J01.00 Assessments Encounter Date Diagnosis (ICD Code) Assessment Notes Treatment Notes Treatment Clinical Notes Section Notes 11/20/2024 Acute non-recurrent maxillary sinusitis (ICD-10 - J01.00) Plan Of Treatment Medication Medication Name Sig Start Date Stop Date Notes Singulair 10 MG 1 tab(s) orally once a day (in the evening); Duration: 90 days 10/08/2021 Enalapril Maleate 20 MG 1 tab(s) orally once a day; Duration: 90 days Progress Notes * Lilliam VALENTIN ADOB:1940 (84 yo F)Acc No.[id number]:11/20/2024 Patient: Lilliam PLASCENCIA Provider: Krystle phillips Migration :1940 A ge:84 Y S ex:Female Date:11/20/2024 Address:[address] [place] [address] [place], [id number] Pcp:Ziggy Cunha Subjective: * Chief Complaints: * 1 . [facility] To [facility] Conversion Encounter. * Medical History: * Medications: T aking Acidophilus - Capsule 1 cap(s) orally once a day , Taking Calcium 600 + D 600 MG-5 MCG TABLET 1 TAB(S) ORALLY DAILY , Notes to Pharmacist: *Please review and pick correct strength-formulation from [facility] options. If intended option is not shown, discontinue and re-order from Quick Search*, Taking Metamucil 400 MG CAPSULE 1 GUMMY ORALLY TWICE DIALY , Notes to Pharmacist: *Please review and pick correct strength-formulation from [facility] options. If intended option is not shown, discontinue and re-order from Quick Search*, Taking Aspirin 81 MG Tablet Delayed Release 1 cap(s) orally daily , Taking B-12 2500 MCG Tablet 1 tab(s) sublingually once a day , Taking Norvasc 2.5 MG Tablet 1 tab(s) orally once a day , Taking busPIRone HCl 5 MG Tablet 1 tab(s) orally 2 times a day , Taking Metoprolol Tartrate 25 MG Tablet TAKE 1 TABLET 2 TIMES EACH DAY orally 2 times a day , Taking Nystatin 204927 UNIT/ML Suspension 5 ml orally 4 times a day , Taking Trelegy Ellipta 100 MCG-62.5 MCG-25 MCG/INH POWDER 1 PUFF(S) INHALED ONCE A DAY , Notes to Pharmacist: *Please review and pick correct strength-formulation from [facility] options. If intended option is not shown, discontinue and re-order from Quick Search* * Allergies: M otrin IB: dizzy, Cipro, Bystolic: breathing, hydroCHLOROthiazide, PRIMPRO, DITROPAN, Pyridium, Detrol, Doxycycline: hives, Sulfamethoxazole, LEVAQUIN: dizziness. Objective: * Vitals: Assessment: * Assessment: 1. A cute non-recurrent maxillary sinusitis - J01.00 Plan: * Treatment: 2. O thers Refill Enalapril Maleate Tablet, 20 MG, 1 tab(s), orally, once a day, 90 days, 90, Refills 0. ? * * Electronic signature of Prov ider Migration on 03/28/2025 at 08:57 AM EDT Sign off status: Pending * Provider: Krystle phillips Migration Date: 0 11/20/2024 Generated for Shanta ortiz/Rahul/Chilangoitting on: 0 03/28/2025 08:57 AM EDT
--- OUTSIDE RECORDS SUMMARY | 2025-03-28 08:57 | XMS_ITS | Clinical Summary ---
Author Organization [employer] ([place], [place], [place], [place]) Address [address] [place] [address] Care Team Providers Care Tube Buffer Name Role Phone Ziggy Cunha MD Primary Care Provider [phone] Allergies Active Allergy Reactions Criticality Noted Date Comments Adhesive Tape Itching 06/27/2022 Phenazopyridine Rash Low 06/27/2022 Nebivolol Other (See Comments) 06/27/2022 Pt stated it interacted with her asthma Ciprofloxacin Itching 06/27/2022 Tolterodine Rash Low 06/27/2022 Oxybutynin Chloride Itching 06/27/2022 Doxycycline Itching 06/27/2022 Hydrochlorothiazide Other (See Comments) 06/27/2022 Pt could not urinate Ibuprofen Rash Low 06/27/2022 Conj Estrog-Medroxyprogest Arthur Itching 06/27/2022 Sulfa (Sulfonamide Antibiotics) Itching 06/27/2022 Medications metoprolol tartrate (LOPRESSOR) 25 MG tablet Take 25 mg by mouth 2 (two) times daily. Active enalapril (VASOTEC) 20 MG tablet Take 20 mg by mouth daily. Active psyllium (METAMUCIL) powder Take 1 packet by mouth 2 (two) times daily. Active busPIRone (BUSPAR) 5 MG tablet Take 5 mg by mouth 2 (two) times daily. Active montelukast (SINGULAIR) 10 mg tablet Take 10 mg by mouth nightly. Active levocetirizine (XYZAL) 5 MG tablet Take 5 mg by mouth every evening. Active amLODIPine (NORVASC) 5 MG tablet Take 5 mg by mouth daily. Active aspirin 81 MG EC tablet Take 81 mg by mouth daily. Active lactobacillus rhamnosus, GG, (CULTURELLE) 10 billion cell capsule Take 1 capsule by mouth daily. Active ascorbic acid, vitamin C, (ascorbic acid with tatum hips) 500 MG tablet Take 500 mg by mouth daily. Active cyanocobalamin, vitamin B-12, 500 MCG tablet Take 500 mcg by mouth daily. Active Active Problems Problem Noted Date Diagnosed Date Delayed emergence from anesthesia 07/18/2022 Gastroesophageal reflux disease 07/04/2022 Hypertension Asthma Arthritis Social History Tobacco Use Types Packs/Day Years Used Date Smoking Tobacco: Never Smokeless Tobacco: Never Alcohol Use Standard Drinks/Week Comments Never 0 (1 standard drink = 0.6 oz pur e alcohol) Food Insecurity Answer Date Recorded Food run out past 12 months Not on file 08/19 Food did not last past 12 months Not on file 09/06/2023 Employment Answer Date Recorded Help finding and keeping a job Not on file 0 09/06/2023 Family and Community Support Answer Jack e Recorded Help with Day to Day Activities Not on file 09/06/2023 Feeling Lonely or Isolated Not on file 09/06 Educational Attainment Answer Date Stanton rded Speak language other than Singaporean at home Not on file 09/06/2023 Want help with school or training Not on file 09/06/2023 Substance Use Answer Date Recorded Used prescription meds for non-medical reasons N ot on file 09/06/2023 Used illegal drugs past 12 months Not on file 09/06/2023 Comments Unknown Sex and Gender Information Value Date Recorded Sex Assigned at Not on file 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 Gender Identity Not on file Sexual Orientation Not on file Last Filed Vital Signs Vital Sign Reading Time Taken Comments Blood Pressure 138/67 07/18/2022 10:54 AM EST Pulse 65 07/18/2022 10:54 AM EST Temperature 36.1 C (97 F) 07/18/2022 10:54 AM EST Respiratory Rate 16 07/18/2022 10:54 AM EST Oxygen Saturation 99% 07/18/2022 10:54 AM EST Inhaled Oxygen Concentration - - Weight 63.5 kg (140 lb) 07/09/2022 11:00 AM EST Height 172.7 cm (5' 8 ) 07/09/2022 11:00 AM EST Body Mass Index 21.29 07/09/2022 11:00 AM EST Plan of Treatment Health Maintenance Due Date Last Done Comments Medicare Initial AWV G0438 DXA SCAN 1942 Depression Screening (12+) 1954 DTAP/TDAP/TD VACCINES (1 - Tdap) 1961 Shingles Vaccine (Zoster) (1 of 2) 1992 Respiratory Syncytial Virus (RSV) Adult or (1 - 1-dose 75+ series) 2017 Pneumococcal 50+ years (2 of 2 - PCV) 06/15/2019 Tobacco Cessation Counseling and Screening (12+) 07/1807/18/2022 COVID-19 VACCINE ( - 2023- season) 2024 Falls Risk Screening 08/18/2024 Influenza Vaccine (#1) 2025 06/01/2018 Medical Devices Implanted Type Area Emt Driver Device Identifier Shelf Expiration Date Model / Serial / Lot Iol Uv Clareon +21.0 [id number] - [id number] Implanted:Qty: 1 on 07/04/2022 by Pepe Lim MD at [facility] IMPLANTS Left: Eye HERNAN 12/30/2024 [id number] / [id number] / Iol Uv Clareon +21.0 [id number] - [id number] Implanted:Qty: 1 on 07/18/2022 by Pepe Lim MD at [facility] IMPLANTS Right: Eye HERNAN 04/21/2026 [id number] / [id number] / Joints Joints Description:Left shoulder kendrick s a marc in it. Insurance MEDICARE PART A B [facility] SU[facility] Advance Directives For more information, please contact: [phone] * Full Code (Latest Code Status on File) Date Activated Date Inactivated Comments 07/18/2022 8:11 AM 07/18/2022 12:01 PM -Attempt Re suscitation if person has no pulse and is not breathing. -If no pulse or not breathing attempt CPR/CODE. -Call Rapid Response if patient is in distress. Care Teams Tube Buffer Relationship Specialty Start Date End Date Ziggy Cunha MD [address] [place] [address] PCP - General Adolescent Medicine 07/04/22
--- OUTSIDE RECORDS SUMMARY | 2025-03-28 08:57 | XMS_ITS | Referral Summary ---
Author Organization [employer] ([place], [place], [place], [place]) Address [address] [place] [address] Care Team Providers Care Sales Correspondent Name Role Phone Ziggy Cunha MD Primary Care Provider [phone] Allergies Active Allergy Reactions Criticality Noted Date [...] Date Stanton rded Speak language other than Cymraes at home Not on file 09/06/2023 Want help with school or training Not on file 09/06/2023 Substance Use Answer Date Recorded Used prescription meds for non-medical reasons N ot on file 09/06/2023 Used illegal drugs past 12 months Not on file 09/06/2023 Comments Unknown Sex and Gender Information Value Date Recorded Sex Assigned at Not on file 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 Gender Identity Not on file Sexual Orientation [...] 07/09/2022 11:00 AM EST Plan of Treatment Not on file Medical Devices Implanted Type Area Teletype Clerk Device Identifier Shelf Expiration Date Model / Serial / Lot Iol Uv Clareon +21.0 [id number] - [id number] Implanted:Qty: 1 on 07/04/2022 by Pepe Lim MD at [facility] IMPLANTS Left: Eye HERNAN 12/30/2024 [id number] / [id number] / Iol Uv Clareon +21.0 [id number] - [id number] Implanted:Qty: 1 on 07/18/2022 by Pepe Lim MD at [facility] IMPLANTS Right: Eye HERNAN 04/21/2026 [id number] / [id number] / Joints Joints Description:Left shoulder kendrick s a marc in it. Insurance MEDICARE PART A [place] [address] [address] Advance Directives For more information, please contact: [phone] * Full Code (Latest Code Status on File) Date Activated Date Inactivated Comments 07/18/2022 8:11 AM 07/18/2022 12:01 PM -Attempt Re suscitation if person has no pulse and is not breathing. -If no pulse or not breathing attempt CPR/CODE. -Call Rapid Response if patient is in distress. Care Teams Sales Correspondent Relationship Specialty Start Date End Date Ziggy Cunha MD [address] [place] [address] PCP - General Adolescent Medicine 07/04/22
--- OUTSIDE RECORDS SUMMARY | 2025-03-28 08:57 | XMS_ITS | Patient Health Record ---
Author Organization [facility] Address [address] [facility] [address] [place] [address] Care Team Providers Care Salesperson Art Objects Name Role Phone Ziggy Cunha Primary Care [...] Active nebivolol Bystolic breathing Drug Allergy Active Medications Medication SIG (Take, Route, Frequency, Duration) Notes Start Date End Date Status Enalapril Maleate 20 MG 1 tab(s) orally once a day; Duration: 90 days Active Singulair 10 MG 1 tab(s) orally once a day (in the evening); Duration: 90 days 10/08/2021 Active Aspirin 81 MG 1 cap(s) orally daily Active Metamucil 400 MG 1 GUMMY ORALLY TWICE DIALY; Duration: 7 DAYS *Please review and pick correct strength-formulatio n from POLYBONAan options. If intended option is not shown, discontinue and re-order from Quick Search* Active Calcium 600 + D 600 MG-5 MCG 1 TAB(S) ORALLY DAILY *Please review and pick correct strength-formulatio n from Medispan options. If intended option is not shown, discontinue and re-order from Quick Search* Active Trelegy Ellipta 100 MCG-62.5 MCG-25 MCG/INH 1 PUFF(S) INHALED ONCE A DAY *Please review and pick correct strength-formulatio n from Medispan options. If intended option is not shown, discontinue and re-order from Quick Search* 02/06/2023 Active Nystatin 581453 UNIT/ML 5 ml orally 4 times a day; Duration: 7 days 01/23/2023 Active Acidophilus - 1 cap(s) orally once a day Active Norvasc 2.5 MG 1 tab(s) orally once a day; Duration: 30 days 11/12/2022 Active B-12 2500 MCG 1 tab(s) sublingually once a day Active Metoprolol Tartrate 25 MG TAKE 1 TABLET 2 TIMES EACH DAY orally 2 times a day; Duration: 90 days Active busPIRone HCl 5 MG 1 tab(s) orally 2 times a day; Duration: 90 days 09/19/2022 Active Immunizations Vaccine Route Administration Date Status Comme nts Fluzone High Dose IM Intramuscular 05/17/2019 Administered Fluzone High Dose IM Intramuscular 05/04/2020 Administered Fluzone High Dose IM Intramuscular 05/22/2021 Administered Fluzone High Dose IM Intramuscular 05/20/2022 Administered Influenza (Fluzone)--Medicare only IM Intramuscular 06/01/2018 Administered Prevnar PCV-13 (Pneumococcal conjugate 13) IM Intramuscular 06/15/2018 Administered Problems Problem Type SNOMED Code ICD Code Onset Dates Problem Status W/U Status Risk Notes Problem Headache (finding) (14611537) Head ache (784.0) Active confirmed Problem Chronic rhinitis (83640245) Chronic rhinitis (J31.0) Active confirmed Problem Irritable bowel syndrome with diarrhea (929474982) Irritable bowel syndrome with diarrhea (K58.0) Active confirmed Problem Localized, primary osteoarthritis of the hand (084242154) Primary osteoarthritis, right hand (M19.041) Active confirmed Problem Incontinence of feces (28135393) Full incontinence of feces (R15.9) Active confirmed Problem Dysuria (07494433) Dysuria (R30.0) Active confirmed Problem Essential hypertension (98902344) Essential hypertension (I10) Active confirmed Problem Seasonal allergy (017900253) Seasonal allergies (J30.2) Active confirmed Problem Arthropathy (173621811) 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) Active confirmed Problem Constipation (89298402) Constipation, unspecified constipation type (K59.00) Active confirmed Problem Cardiac arrhythmia (449544668) Irregular heart rate (I49.9) Active confirmed Problem Ataxia (01218611) Ataxia (R27.0) Active confirm ed Problem Generalized anxiety disorder (42885136) DANIKA (generalized anxiety disorder) (F41.1) Active confirmed Problem Localized, primary osteoarthritis of the hand (557089717) Primary osteoarthritis of left hand (M19.042) Active confirmed Problem Oropharyngeal dysphagia (83614691) Oropharyngeal dysphagia (R13.12) Active confirmed Problem Pharyngeal dysphagia (49610163243783) Pharyngeal dysphagia (R13.13) Active confirmed Problem Pelvic congestion syndrome (86505819) Pelvic congestion syndrome (N94.89) Active confirmed Problem Mild intermittent asthma (873536518) Mild intermittent asthma in adult without complication (J45.20) Active confirmed Problem Betaxolol allergy (648979125) Betaxolol allergy (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.8) Active confirmed Problem Skin sensation disturbance (28646885) Complaint of paresthesia (R20.2) Active confirmed Problem Headache disorder (079613071) Headache disorder (R51.9) Active confirmed Encounters Encounter Location Date Provider Diagnosis [facility] [address] [facility] [address] [place] [address] 11/20/2024 Provider Migration Acute non-recurrent maxillary sinusitis J01.00 Assessments Encounter Date Diagnosis (ICD Code) Assessment Notes Treatment Notes Treatment Clinical Notes Section Notes 11/20/2024 Acute non-recurrent maxillary sinusitis (ICD-10 - J01.00) Plan Of Treatment Pending Test Test Name Order Date N-BUN, Creatinine 05/06/2011 MRI : Lumbosacral Spine 04/09/2010 MRI : Lumbosacral Spine 01/09/2011 Ultrasound : Abdomen 03/24/2013 Urinalysis 03/23/2015 MRI : Hip, Right 01/09/2011 X ray : Hands, Bilateral 12/30/2014 Physical Therapy 07/16/2021 CT Scan : Soft Tissue, Neck 04/01/2017 Speech Therapy Eval and Treatment 2020 Occupational Therapy : Eval & Treatment 07/16/2021 Ultrasound : Renal, bilateral 03/24/2013 H-CBC with AUTO DIFF 01/21/2017 H-CMP 01/21/2017 H-TSH 01/21/2017 H-SED RATE 12/30/2014 H-JIN PROFILE 12/30/2014 C-CBC 09/03/2019 C-CBC 05/12/2020 C-CMP 05/12/2020 C-CMP 09/03/2019 C-LIPID PANEL 09/03/2019 C-TSH 05/12/2020 C-VITAMIN B12 09/03/2019 C-VITAMIN B12 05/12/2020 C-URINE CULTURE 03/24/2013 C-URINE CULTURE 12/24/2016 C-VITAMIN D, 25-HYDROXY 05/12/2020 H-CCCP 12/30/2014 Urine Culture, Routine 05/12/2017 M-Basic Metabolic Panel 06/16/2020 M-Thyroid Stimulating Hormone 04/01/2019 M-Vitamin B12 04/01/2019 M-Vitamin D 25 Hydroxy 04/01/2019 Insurance Providers Payer Name Payer Address Payer Phone Subscriber Number Group Number Insured Name Patient Relationship to Insured Coverage Start Date Coverage End Date [place]ICARE [place] [place] [address] [id number] Lilliam Ross Self - patient is the insured Medications Administered Medication Instructions Date of Administration Dosage Notes Ceftriaxone 500 03/24/2013 500 mg Ceftriaxone 500 07/08/2022 500 mg Cyanocobalamin/B-12 Pt's Own Medication 04/15/2019 1 mL Cyanocobalamin/B-12 Pt's Own Medication 04/21/2019 1 mL Cyanocobalamin/B-12 Pt's Own Medication 04/29/2019 1 mL Cyanocobalamin/B-12 Pt's Own Medication 05/06/2019 1 mL Cyanocobalamin/B-12 Pt's Own Medication 05/13/2019 1 mL Cyanocobalamin/B-12 Pt's Own Medication 05/20/2019 1 mL Cyanocobalamin/B-12 Pt's Own Medication 05/27/2019 Cyanocobalamin/B-12 Pt's Own Medication 06/03/2019 1 mL Cyanocobalamin/B-12 Pt's Own Medication 06/10/2019 1 mL Cyanocobalamin/B-12 Pt's Own Medication 06/17/2019 Cyanocobalamin/B-12 Pt's Own Medication 06/24/2019 1 mL Cyanocobalamin/B-12 Pt's Own Medication 07/01/2019 Dexamethasone 4mg Injection 10/08/2021 4 mg Dexamethasone 4mg Injection 07/02/2022 4 mg Dexamethasone 4mg Injection 07/08/2022 4 mg Kenalog 40mg 12/04/2017 40 mg Triamcinolone Acetonide 40mg Injection 03/29/2019 1 mL Triamcinolone Acetonide 40mg Injection 01/13/2020 1 mL Triamcinolone Acetonide 40mg Injection 04/06/2020 1 mL Triamcinolone Acetonide 40mg Injection 08/21/2020 1 mL Triamcinolone Acetonide 40mg Injection 10/27/2020 1 mL Triamcinolone Acetonide 40mg Injection 04/06/2021 1 mL TRIAMCINOLONE 09/09/2022 1 mL Kenalog 02/03/2014 1 Kenalog 07/05/2014 1 mL Kenalog 06/16/2015 1 mL Kenalog 03/22/2016 1 mL Kenalog 11/19/2016 1 mL Medical (General) History Medical History History ICD Code colon pylops x 2, 2017 gerd hypertension anxiety degenerative disc disease LS spine Frequent UTI Osteopenia -low FRAX score on DEXA scann ing November 2021 Frequent PACs Pelvic Congestion Syndrome Surgical History Surgery Date(Month/Year) cholecystectomy tonsillectomy Colon resection 2009 tubal 1976 appendectomy 1976 nasal Colonoscopy 2013 left shoulder 06/2021 Hospitalization History Reason Date(Month/Year) walking pneumonia myocarditis and pericarditis, viral
--- OUTSIDE RECORDS SUMMARY | 2025-03-28 08:57 | XMS_ITS | Clinical Summary ---
Author [facility] Address [address] [place] [address] Care Team Providers Care Finisher Card Tender Name Role Phone Ziggy Cunha MD Primary Care Provider [phone] Social History Tobacco Use Types Packs/Day Years Used Date Smoking Tobacco: Never Assessed Abuse Screen Answer Date Recorded Unsafe at Home or Work/School Not on file Feels Threatened by Someone? Not on file Does Anyone Keep You from Co ntacting Others or Doint Things Outside the Home? Not on file 05/30/2023 Physical Sign of Abuse Present Not on file 1 Housing Stability Answer Date Recorded Current Living Arrangements Not on file 05/18 Potentially Unsafe Housing Conditions Not on jordi e 05/30/2023 Family and Community Support Answer Jack e Recorded Help with Day-to-Day Activities Not on file 05/30/2023 Lonely or Isolated Not on file 05/30/2023 Employment Answer Date Recorded Do you want help finding or keeping work or a adelina b? Not on file 05/30/2023 Disabilities Answer Date Recorded Concentrating, Remembering, or Making Decisions Difficulty Not on file 05/30/2023 Doing Errands Independently Difficulty Not on fi le 05/30/2023 Education Answer Date Recorded Help with school or training? Not on file Preferred Language Not on file 05/30/2023 Comments Unknown Sex and Gender Information Value Date Recorded Sex Assigned at Not on file Legal Sex Female 11:07 AM EDT Gender Identity Not on file Sexual Orientation Not on file Plan of Treatment Health Maintenance Due Date Last Done Comments ANNUAL PHYSICAL 1940 DXA SCAN 1942 ZOSTER VACCINE (1 of 2) 1992 RSV Vaccine - Adults (1 - 1- dose 75+ series) 2017 COVID-19 Vaccine (6 2023-2 5 season) 2024 06/11/2022, 02/21/2022, 06/21/2021, Additional history exists INFLUENZA VACCINE 05/18/2025 05/22/2021, , 05/17/2019, Additional history exists TDAP/TD VACCINES (2 - Td or Tdap) 05/04/2031 021 Pneumococcal Vaccine 50+ Completed 06/15/2018, 05/19 Insurance MEDICARE A & B Member Subscriber Plan / Payer (Ef fective 2007-Present) Name:Lilliam Ross Member ID:[id number] Relation to Subscriber:Self Name:Lilliam Ross Subscriber ID:[id number] Payer ID:[id number] Group ID:Not on file Type:Not on file Address: [address] [employer] Care Teams Finisher Card Tender Relationship Specialty Start Date End Date Ziggy Cunha MD [facility] [address] [facility] [address] [place] [address] PCP - General Adolescent Medicine 02/26/23
--- NOTE | 2025-03-28 09:23 | MR_ITS ---
FINAL REPORT TECHNIQUE: Multiplanar MR without contrast CLINICAL HISTORY: low back pain, radiating to right leg when walking FINDINGS: Sagittal images show normal vertebral height. Alignment is normal. There are type I discogenic endplate signal changes at L3-4 and minimally at L2-3. L1-2: Mild annular disc bulge without canal stenosis. L2-3: Mild annular disc bulge and facet arthropathy. Mild neuroforaminal narrowing. L3-4: Moderate annular disc bulge and facet arthropathy. Mild central canal stenosis and moderate bilateral neuroforaminal narrowing. L4-5: Moderate annular disc bulge and facet arthropathy. Mild central canal stenosis. Moderate left and mild right neuroforaminal narrowing. L5-S1: Mild annular disc bulge and facet overgrowth with mild neuroforaminal narrowing. IMPRESSION: Mild canal stenosis and neuroforaminal narrowing, most pronounced at L3-4 and L4-5. Reviewed, Interpreted and Dictated by Markos Jacobsen MD Transcribed by Pascale Sullivan Authenticated and . [facility]
== END 2025-03-28 23:59 | disposition home or self-care (01) ==
LOC: RAD 08:53
PROVIDERS: PCP Family Medicine; Visit Provider Family Medicine
DX: M48.061 Spinal stenosis, lumbar region without neurogenic claudication (principal); M47.26 Other spondylosis with radiculopathy, lumbar region; M51.16 Intervertebral disc disorders with radiculopathy, lumbar region
CPT/HCPCS: 72148

== ENCOUNTER 2025-04-13 13:40 | Outpatient (RCR) | payer MEDICARE, SELFPAY ==
--- NOTE | 2025-04-13 16:52 | HMH.PTOPEV ---
PT Outpatient Evaluation Rehab PT Outpatient Evaluation Start: 04/13/25 14:12 Freq: Status: Active Protocol: Document 04/13/25 14:12 PDESEROUX (Rec: 04/13/25 16:51 [email or web address] [id number]) E-signed By Zhen Saeed, PT Outpatient Therapy Subjective History Subjective History Pt. is a 84 year old female who presents to [facility] Outpatient Physical Therapy Services in [place] for the PT outpatient initial evaluation this date() w/ c/o acute and constant R-sided lumbar and R LE lateral hip P!, catching, and soreness upon palpation of traumatic onset two weeks ago. Pt. c/o some pain across the lumbar spine for some time prior to the MIRI, however symptoms began to worsen post MIRI. Pt. describes MIRI secondary to I went to make a turn after I got out of the shower when symptoms started to worsen. Pt. reported she locked up for a few minutes when the pain hit. Pt. reports, sitting isn't real bad, but c/o those first few steps worsen symptoms complaint. However, pt. reports the pain eases some the more she continues to walk. Pt. reports the pain gets severe with the first few steps she takes. Recent diagnostic imaging indicates a pinched nerve per pt. report. Pt. reports her family MD has offered a referral to a Neurosurgeon to discuss the MRI and lumbar pain, however, pt. vocalizes she wants to try Physical Therapy prior to the referral. Pt. denies having any injections for current complaint, denies being prescribed any medication secondary to I'm allergic to a lot of medicines. Pt. reports she was instructed to take half Aleve w/ Tylenol, but denies having any symptom relief, however, pt. reports having some symptom relief w/ her Tylenol Arthritis. Pt. denies numbness/tingling into the R LE, denies saddle paresthesia nor B/B dysfunction at this time. Pt. reports when she takes those initial steps that worsen symptom complaint she describes symptoms as a catching and that something won't let loose across the lateral R LE hip region. Pt. reports she is limited in going to [facility] secondary to her c/o pain. Pt. does not have a return date to her referring Physician at this time. Patient's current medication list includes Lopressor, Losartan, Aspirin, Buspar, Pepsin, Mucinex, Lorvas, and Tylenol. PMH includes HTN. New diagnosis of No cancer in past 12 months? Chief Complaint Pain,Catches/Locks,Gives out/Unstable,Weakness Symptom Type Ache,Dull,Shooting Symptoms Relieved By Rest/Positioning,Ice,Prescription Meds Symptoms Aggravated Sitting,Bending/Stooping,Physical Activity,Twisting, By Walking,Lifting Prior Functional None Limitations Current Functional Reaching,Lifting,Housework,Driving,Sleeping,Standing, Limitations Squatting,Recreation Activity,Walking,Stairs,Bending/ Stooping Symptom Description Constant but Variable,Activity Dependent Level of pain today 4 (0-10) Pain scale - at its 2 best (0-10) Pain scale - at its 6 worst (0-10) Lumbopelvic Eval Posture Thoracic Spine Increased Kyphosis Posture Standing Position Lumbar Spine Posture Decreased Lordosis,Flexible Scoliosis on (R),Flexed Standing Position Assistive device Assistive Devices None / NA Gait Observation General Gait Pattern Antalgic Gait,Wide Based Gait,Trunk Posterior to MURTAZA Observation Palapation tenderness bilateral lumbar spinal Yes: central and R-sided unilateral L5/S1 tenderness buttock tenderness Yes: glute med./min./piriformis mms. Lumbar/Sacral Tenderness,Spasm,Trigger Point Palpation Findings Lumbar/Sacral grade 4 +TTP to buttock/lumbar spine/greater trochanter Palpation Overall Comment Accessory Movement L-spine Vertebrae Central P/A [place],Right P/A [place] Accessory Movements that Elicit Symptoms L5 right S1 right Range of Motion Lumbar Spine Active 65 Flexion Range of Motion (degrees) Lumbar Spine Active 20 Extension Range of Motion (degrees) Left Lumbar Spine 10 Lateral Flexion Active Range of Motion (degrees) Right Lumbar Spine 6 Lateral Flexion Active Range of Motion (degrees) Lumbar Spine ROM Soft Tissue Tightness,Pain Limitations Manual Muscle Test Right Knee Extension 4 Good Strength Grade Knee Flexion 3+ Fair+ Strength Grade Hip Flexion Strength 3 Fair Grade Hip Abduction 4- Good- Strength Grade Hip Adduction 4 Good Strength Grade Hip External 2+ Poor+ Rotation Strength Grade Hip Internal 2+ Poor+ Rotation Strength Grade Hip Extension 4 Good Strength Grade Ankle Dorsiflexion 4 Good Strength Grade Gastronemius/Soleus 4 Good Strength Grade Left Knee Extension 5 Normal Strength Grade Knee Flexion 3+ Fair+ Strength Grade Hip Flexion Strength 3 Fair Grade Hip Abduction 4 Good Strength Grade Hip Adduction 4 Good Strength Grade Hip External 3 Fair Rotation Strength Grade Hip Internal 4- Good- Rotation Strength Grade Hip Extension 5 Normal Strength Grade Ankle Dorsiflexion 5 Normal Strength Grade Gastronemius/Soleus 5 Normal Strength Grade DTR Rt Patellar 0 Lt Patellar 1+ Rt Gastroc/Soleus 0 Lt Gastroc/Soleus 0 Altered Sensation Bilateral LE Dermatome Level L5 Comment light touch sensation vocalized asymmetrical in L5 dermatome pattern of R LE compared to L LE Special Tests Lumbar Spine Screen Positive Sciatic Nerve Positive Right Tension Test Reverse Sciatic Positive Right Nerve Tension Test Unilateral Straight Positive Right Leg Raise (Lasegue) Test Lumbar Long [place] Positive Distraction Test/ Manual Traction Oswestry Index Section 1 Pain Intensity The pain is moderate and does not vary much Section 2 Personal Care ( increase the pain, but I manage not to change my way of Washing,[place]) doing it Section 3 Lifting lifting heavy weights off the floor, but I can manage light to medium Section 4 Walking I cannot walk more than 1/4 mile without increasing pain Section 5 Sitting Pain prevents me from sitting for more than 1/2 hour Section 6 Standing I cannot stand more than 10 minutes without increasing pain Section 7 Sleeping I get pain in bed, but it does not prevent me from sleeping well Section 8 Social Life Pain has no significant effect on my social life apart from limiting Section 9 Traveling Pain restricts me to short necessary journeys under 30 minutes Section 10 Changing Degreee of My pain seems to be getting better, but improvement is Pain slow Score and Risk Level Oswestry Sc 29 Oswestry Risk Level Severe Disability Outpatient Therapy Assessment Impairments Problems/ Palpation Tenderness,Impaired Range of Motion,Impaired Impairmments Strength,Impaired Endurance,Impaired Transfers,Impaired Gait Pattern,Impaired Walking,Impaired Standing, Impaired Driving,Impaired Lifting,Impaired Household Care,Impaired Stair Climbing,Impaired Incline Stepping, Impaired Stepping on Uneven Surface,Impaired Squatting, Impaired Bending,Impaired Recreational Activities, Subjective C/O Pain,Impaired Self Care/Self Management Prognosis Rehab Potential Good Comment w/ HEP compliancy Clinical Impression Consistent with Yes Diagnosis Consistent with R lumbar radiculopathy PT Patient Goals PT Patient Goals PT Short Term STG #1.) Pt. will demonstrate independency w/ HEP Patient Goals within 2 weeks for an optimal PT prognosis. STG #2.) Pt. will subjectively report a 4/10 pain at worst within 2 weeks to improve QOL. STG #3.) Pt. will demonstrate a grade 2+ TTP central P- A of L4-S1 within 2 weeks to improve QOL. PT Pen[facility]iary Patient LTG #1.) Pt. will improve her R LE hip mms to a 4+/5 Goals within 6 weeks to improve her ability to walk >10 minutes without pain. LTG #2.) Pt. will subjectively report a 2/10 pain at worst within 6 weeks to improve her QOL. LTG #3.) Pt. will demonstrate a grade 1+ TTP central P- A of L4-S1 within 6 weeks to improve QOL. LTG #4.) Pt. will improve her R LE knee mms to a 4+/5 within 6 weeks to improve her transfer ability from standing to walking. LTG #5.) Pt. will improved lumbar extension by 5 degrees in 6 weeks to improved her ability to return to ambulating on the treadmill at [facility] to return to recreational activity. Outpatient Therapy Plan of Care Treatment Plan May Include Therapeutic Exercise Yes Including Home Exercise Program Manual Therapy Yes Techniques Neuromuscular Re- Yes education Therapeutic Yes Activities to Return to Previous Functional/Work Level Gait Training Yes ADL/Self Care Yes Education Mechanical Traction Yes Dry Needling Yes Thermal Modalities Yes Electrical Yes Stimulation Ultrasound/ Yes Phonophoresis Iontophoresis Yes Vasopneumatic Yes Compression Pump Massage Yes Eval/Re-Eval Yes Frequency Times per week 2 Duration Number of Weeks 6-8 Addendums This patient is a No candidate for social or vocational rehab ? Patient/Guardian Yes verbally acknowledges understanding of treatment program and consents to further treatment? Patient/Guardian Yes verbally acknowledges understanding of diagnosis, prognosis and goals for treatment? Eval Complexity PT Charges 96690 - Low Complexity Shoulder/Elbow Eval Shoulder Objective Measurements Elbow Objective Measurements PHYSICIAN CERTIFICATION: I certify the specified therapy services for Lilliam Ross are required, authorized, and reviewed every 30 days.
== END 2025-04-13 23:59 | disposition home or self-care (01) ==
LOC: PT.CARL 13:40
PROVIDERS: PCP Family Medicine; Visit Provider Family Medicine
DX: M54.16 Radiculopathy, lumbar region (principal); M54.50 Low back pain, unspecified
CPT/HCPCS: 97112; 97140; 97161

== ENCOUNTER 2025-05-03 10:09 | Outpatient (CLI) | payer MEDICARE, SELFPAY ==
--- OUTSIDE RECORDS SUMMARY | 2025-05-03 10:29 | XMS_ITS | Continuity of Care Document ---
Author Organization [facility]ly [facility]. If a dditional information is needed, contact Health Information Management at [phone] Address [address] [place] [address] Phone Care Team Providers Care Hotel Service Manager Name Role Phone Unavailable Unavailable Unavailable Unavailable Unavailable Unavailable Allergies and Adverse Reactions Adhesive Tape(Allergy) Phenazopyridine hydrochlorid e 95 MG Oral Tablet(Allergy) Bystolic(Allergy) Ciprofloxacin 250 MG Oral Ta blet [Cipro](Allergy) tolterodine tartrate 2 MG Or al Tablet [Detrol](Allergy) Ditropan(Allergy) doxycycline anhydrous 40 MG Delayed Release Oral Capsule(Allergy) Hydrochlorothiazide 25 MG Or al Tablet(Allergy) Motrin(Allergy) {28 (Estrogens, Conjugated ( GROUP HOME) 0.625 MG / medroxyPROGESTERone acetate 2.5 MG Oral Tablet) } Pack [Prempro 0.625/2.5 28 Day](Allergy) Pyridium(Allergy) Sulfamethoxazole-Trimethopri m(Allergy) Medications Aspirin 81 MG Delayed Releas e Oral Tablet;81 MG Orally Once a day, 1 tablet Quantity:30 ANNABELLE Dalton Comments:81 MG Orally Once a day, 1 tablet Centrum Silver;- Orally , as directed ANNABELLE Dalton Comments:- Orally , as direc kaiser Norvasc (as amLODIPine besyl ate) 2.5 MG Oral Tablet;2.5 MG Orally Once a day, 1 tablet Quantity:30 ANNABELLE Dalton Comments:2.5 MG Orally Once a day, 1 tablet Metoprolol Tartrate 25 MG Or al Tablet;25 MG Orally Twice a day, 1 tablet with food Quantity:60 ANNABELLE Dalton Comments:25 MG Orally Twice a day, 1 tablet with food Enalapril Maleate 20 MG Oral Tablet;20 MG Orally Once a day, 1 tablet Quantity:30 ANNABELLE Dalton Comments:20 MG Orally Once a day, 1 tablet Ranitidine 150 MG Oral Table t;150 MG Orally Once a day, 1 tablet at bedtime Quantity:30 ANNABELLE Dalton Comments:150 MG Orally Once a day, 1 tablet at bedtime Diazepam 5 MG Oral Tablet;5 MG Orally Twice a day, 1 tablet as needed ANNABELLE Dalton Comments:5 MG Orally Twice a day, 1 tablet as needed
--- OUTSIDE RECORDS SUMMARY | 2025-05-03 10:32 | XMS_ITS | Clinical Summary ---
[facility] Organization [facility] Address [address] [place] [address] Care Team Providers Care Coastal Tug Mate Name Role Phone Ziggy Cunha MD Primary Care Provider [phone] Social History Tobacco Use Types Packs/Day Years [...] dose 75+ series) 2017 COVID-19 Vaccine (6 - 2024-2 6 season) 2025 06/11/2022, 02/21/2022, 06/21/2021, Additional history exists INFLUENZA VACCINE 05/18/2025 05/22/2021, , 05/17/2019, Additional history exists TDAP/TD VACCINES (2 - Td or Tdap) 05/04/2031 021 Pneumococcal Vaccine 50+ Completed 06/15/2018, 05/19 Insurance MEDICARE A & B Member Subscriber Plan / Payer (Ef fective 2007-Present) Name:Lilliam Ross Member ID:[id number] Relation to Subscriber:Self Name:Lilliam Ross Subscriber ID:[id number] Payer ID:[id number] Group ID:Not on file Type:Not on file Address: [address] [employer] Care Teams Coastal Tug Mate Relationship Specialty Start Date End Date Ziggy Cunha MD [address] [facility] [address] [place] [id number] PCP - General Adolescent Medicine 02/26/23
--- OUTSIDE RECORDS SUMMARY | 2025-05-03 10:32 | XMS_ITS | Referral Summary ---
Author Organization [employer] ([place], [place], [place], [place]) Address [address] [place] [address] Care Team Providers Care Junior Java Developer Name Role Phone Ziggy Cunha MD Primary Care Provider Allergies Active Allergy Reactions Criticality Noted Date [...] Date Stanton rded Speak language other than Sammarinese at home Not on file 09/06/2023 Want help with school or training Not on file 09/06/2023 Substance Use Answer Date Recorded Used prescription meds for non-medical reasons N ot on file 09/06/2023 Used illegal drugs past 12 months Not on file 09/06/2023 Comments Unknown Sex and Gender Information Value Date Recorded Sex Assigned at Not on file Legal 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 Gender Identity Not on file Sexual Orientation [...] on file Medical Devices Implanted Type Area Catering Sous Chef Device Identifier Shelf Expiration Date Model / Serial / Lot Iol Uv Clareon +21.0 [id number] - [id number] Implanted:Qty: 1 on 07/04/2022 by Pepe Lim MD at [facility] IMPLANTS Left: Eye HERNAN 12/30/2024 [id number] / [id number] / Iol Uv Clareon +21.0 [id number] - [id number] Implanted:Qty: 1 on 07/18/2022 by Pepe Lim MD at [facility] IMPLANTS Right: Eye HERNAN 04/21/2026 [id number] / [id number] / Joints Joints Description:Left shoulder kendrick s a marc in it. Insurance MEDICARE [place] [address] [place] [address] Advance Directives For more information, please contact: [phone] * Full Code (Latest Code Status on File) Date Activated Date Inactivated Comments 07/18/2022 8:11 AM 07/18/2022 12:01 PM -Attempt Re suscitation if person has no pulse and is not breathing. -If no pulse or not breathing attempt CPR/CODE. -Call Rapid Response if patient is in distress. Care Teams Junior Java Developer Relationship Specialty Start Date End Date Ziggy Cunha MD [address] [place] [id number] PCP - General Adolescent Medicine 07/04/22
--- OUTSIDE RECORDS SUMMARY | 2025-05-03 10:32 | XMS_ITS | Clinical Summary ---
Author Organization [employer] ([place], [place], [place], [place]) Address [address] [place] [address] Care Team Providers Care Bookstore Clerk Name Role Phone Ziggy Cunha MD Primary Care Provider [phone] Allergies Active Allergy Reactions Criticality Noted Date [...] Date Stanton rded Speak language other than Ivorian at home Not on file 09/06/2023 Want help with school or training Not on file 09/06/2023 Substance Use Answer Date Recorded Used prescription meds for non-medical reasons N ot on file 09/06/2023 Used illegal drugs past 12 months Not on file 09/06/2023 Comments Unknown Sex and Gender Information Value Date Recorded Sex Assigned at Not on file Legal 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 Gender Identity Not on file Sexual Orientation [...] Tobacco Cessation Counseling and Screening (12+) 07/1807/18/2022 Falls Risk Screening 08/18/2024 COVID-19 VACCINE ( - season) 2025 Influenza Vaccine (#1) 2025 06/01/2018 Medical Devices Implanted Type Area Breadman Device Identifier Shelf Expiration Date Model / Serial / Lot Iol Uv Clareon +21.0 [id number] - [id number] Implanted:Qty: 1 on 07/04/2022 by Pepe Lim MD at [facility] IMPLANTS Left: Eye HERNAN 12/30/2024 [id number] / [id number] / Iol Uv Clareon +21.0 [id number] - [id number] Implanted:Qty: 1 on 07/18/2022 by Pepe Lim MD at [facility] IMPLANTS Right: Eye HERNAN 04/21/2026 [id number] / [id number] / Joints Joints Description:Left shoulder kendrick s a marc in it. Insurance MEDICARE PART A B [facility] SUPP Advance Directives For more information, please contact: [phone] * Full Code (Latest Code Status on File) Date Activated Date Inactivated Comments 07/18/2022 8:11 AM 07/18/2022 12:01 PM -Attempt Re suscitation if person has no pulse and is not breathing. -If no pulse or not breathing attempt CPR/CODE. -Call Rapid Response if patient is in distress. Care Teams Bookstore Clerk Relationship Specialty Start Date End Date Ziggy Cunha MD [address] [place] [address] PCP - General Adolescent Medicine 07/04/22
[2025-05-03 10:37] LABS: Hematocrit 35.4 % (37.0-47.0); Hemoglobin 11.9 g/dL (12.2-16.2); Immature Granulocytes % 0.4 %; Mean Corpuscular HGB Conc 33.6 g/dL (31.8-35.4); Mean Corpuscular Hemoglobin 31.9 pg (27.0-31.2); Mean Corpuscular Volume 94.9 fl (81-99); Nucleated Red Blood Cells % 0 %; Platelet Count 188 K/mm3 (142-424); Red Blood Count 3.73 M/mm3 (4.20-5.40); Red Cell Distribution Width-SD 43.7 fL; White Blood Count 5.3 K/mm3 (4.8-10.8)
[2025-05-03 11:21] LABS: Alanine Aminotransferase 18 U/L (12-78); Albumin Level 4.3 g/dl (3.5-5.0); Alkaline Phosphatase 56 U/L (38-126); Anion Gap 10.5 mEq/L (5-15); Aspartate Amino Transferase 37 U/L (14-36); Bilirubin,Direct 0.1 mg/dl (0.0-0.4); Bilirubin,Indirect 0.4 mg/dL (0.0-0.9); Bilirubin,Total 0.5 mg/dl (0.2-1.3); Bilirubin,Unconjugated 0.4 mg/dL (0.0-1.1); Blood Urea Nitrogen 12 mg/dl (7-17); Calcium 9.1 mg/dl (8.4-10.2); Carbon Dioxide 27 mmol/L (22.0-30.0); Chloride 97 mmol/L (98-107); Cholesterol 134 mg/dl (140-200); Creatinine,Serum 0.60 mg/dl (0.52-1.04); Estimated Glomerular Filt Rate 96 ml/min (>60); GFR (African American) 116 ML/MIN (>60); Glucose 66 mg/dl (74-100); HDL Cholesterol 41 mg/dl (40-60); Magnesium 1.7 mg/dl (1.6-2.3); Potassium 4.5 mmoL/L (3.5-5.1); Sodium 130 mmol/L (136-145); Total Protein,Serum 8.3 g/dl (6.3-8.2); Triglycerides 108 mg/dl (30-150)
[2025-05-03 11:35] LABS: Free T4 (Free Thyroxine) 1.11 ng/dl (0.78-2.19)
[2025-05-03 11:52] LABS: Thyroid Stimulating Hormone 2.89 uIU/mL (0.465-4.68)
== END 2025-05-03 23:59 | disposition home or self-care (01) ==
LOC: LAB 10:10
PROVIDERS: PCP Family Medicine; Visit Provider Nurse Practitioner
DX: I10 Essential (primary) hypertension (principal)
CPT/HCPCS: 36415; 80048; 80061; 80076; 83735; 84439; 84443; 85025

== ENCOUNTER 2025-05-12 13:00 | Outpatient (RCR) | payer MEDICARE, SELFPAY | END 2025-05-17 10:43 | disposition home or self-care (01) | LOC: PT.CARL 13:00 | PROVIDERS: PCP Family Medicine; Visit Provider Family Medicine | DX: M54.16 Radiculopathy, lumbar region (principal) | CPT/HCPCS: 97012; 97110; 97116; 97140 ==